=== PATIENT | male | born 1950 | race Caucasian/White ===

== ENCOUNTER → 2018-08-06 09:00 | Outpatient (CLI) | payer MEDICARE, OTHER, SELFPAY ==
[2018-08-06 09:57] LABS: Add Manual Diff / Slide Review NO; Basophils Percent Auto 0.8 % (0-2); Eosinophils Percent Auto 1.7 % (2-4); Hematocrit 44.7 % (41-53); Hemoglobin 15.3 g/dL (13.5-17.5); Lymphocytes Percent Auto 33.7 % (25-40); Mean Corpuscular HGB Conc 34.3 % (30-36); Mean Corpuscular Hemoglobin 30.7 PG (26-34); Mean Corpuscular Volume 89.6 fL (80-100); Monocytes Percent Auto 15.4 % (3-14); Neutrophils Absolute Auto 2600 /uL (3000-5900); Neutrophils Percent Auto 48.4 % (50-75); Platelet Count 155 X10^3/uL (150-400); Red Blood Cell Count 4.99 X10^6/uL (4.5-5.9); Red Cell Distribution Width 14.4 % (11.6-14.8); White Blood Cell Count 5.3 X10^3/uL (4.5-11.0)
[2018-08-06 10:14] LABS: Alanine Aminotransferase 50 IU/L (21-72); Albumin 4.3 g/dL (3.5-5.0); Alkaline Phosphatase 81 U/L (38-126); Aspartate Aminotransferase 26 IU/L (17-59); BUN Creatinine Ratio 23.8 (6-22); Bilirubin Total 0.6 mg/dL (0.2-1.3); Blood Urea Nitrogen 19 mg/dL (9-20); Calcium 9.1 mg/dL (8.4-10.2); Carbon Dioxide 27 mmol/L (22-32); Chloride 104 mmol/L (98-107); Estimated Glomerular Filt Rate > 60.0 mL/min (>60); Glucose 93 mg/dL (80-110); Potassium 4.5 mmol/L (3.4-5.1); Sodium 144 mmol/L (137-145); Total Protein 7.1 g/dL (6.3-8.2)
[2018-08-06 10:15] LABS: Albumin Globulin Ratio 1.5 (1.0-2.8); Cholesterol 133 mg/dL (140-199); Globulin 2.8 g/dL (1.7-4.1); HDL Cholesterol 46 mg/dL (40-60); HEMOLYSIS < 15 (0-50); LDL Cholesterol Calculated 62 mg/dL (<100); Triglycerides 126 mg/dL (35-150)
[2018-08-06 10:45] LABS: Prostate Specific Antigen Scrn 0.902 ng/mL (0.1-4.0); TSH w/ Reflex to FT4 1.18 uIU/mL (0.47-4.68)
== END ==
PROVIDERS: PCP Family Medicine; Visit Provider Family Medicine
DX: E78.2 Mixed hyperlipidemia (principal); I10 Essential (primary) hypertension; M10.9 Gout, unspecified
CPT/HCPCS: 36415; 80053; 80061; 84443; 85025; G0103

== ENCOUNTER → 2019-08-17 08:26 | Outpatient (CLI) | payer MEDICARE, OTHER, SELFPAY ==
[2019-08-17 09:28] LABS: Add Manual Diff / Slide Review NO; Basophils Absolute Auto 100 /uL (0-100); Basophils Percent Auto 0.9 % (0-2); Eosinophils Absolute Auto 100 /uL (0-450); Eosinophils Percent Auto 1.6 % (2-4); Hematocrit 47.4 % (41-53); Lymphocytes Absolute Auto 2200 /uL (1100-4500); Lymphocytes Percent Auto 34.6 % (25-40); Mean Corpuscular HGB Conc 33.8 % (30-36); Mean Corpuscular Hemoglobin 30.5 PG (26-34); Mean Corpuscular Volume 90.3 fL (80-100); Monocytes Absolute Auto 900 /uL (0-900); Monocytes Percent Auto 13.5 % (3-14); Neutrophils Absolute Auto 3200 /uL (1500-7000); Neutrophils Percent Auto 49.4 % (50-75); Platelet Count 171 X10^3/uL (150-400); Red Blood Cell Count 5.25 X10^6/uL (4.5-5.9); Red Cell Distribution Width 14.5 % (11.6-14.8); White Blood Cell Count 6.4 X10^3/uL (4.5-11.0)
[2019-08-17 09:36] LABS: Alanine Aminotransferase 32 IU/L (<50); Albumin 4.7 g/dL (3.5-5.0); Albumin Globulin Ratio 1.4 (1.0-2.8); Alkaline Phosphatase 75 U/L (38-126); Aspartate Aminotransferase 29 IU/L (17-59); BUN Creatinine Ratio 18.9 (6-22); Blood Urea Nitrogen 17 mg/dL (9-20); Calcium 9.7 mg/dL (8.4-10.2); Carbon Dioxide 29 mmol/L (22-32); Chloride 102 mmol/L (98-107); Cholesterol 151 mg/dL (140-199); Estimated Glomerular Filt Rate > 60.0 mL/min (>60); Globulin 3.4 g/dL (1.7-4.1); Glucose 100 mg/dL (80-110); HDL Cholesterol 44 mg/dL (40-60); HEMOLYSIS < 15 (0-50); LDL Cholesterol Calculated 74 mg/dL (<100); Potassium 4.8 mmol/L (3.4-5.1); Sodium 141 mmol/L (137-145); Total Protein 8.1 g/dL (6.3-8.2); Triglycerides 167 mg/dL (35-150)
[2019-08-17 10:38] LABS: TSH w/ Reflex to FT4 1.24 uIU/mL (0.47-4.68)
== END ==
PROVIDERS: PCP Family Medicine; Visit Provider Family Medicine
DX: E78.2 Mixed hyperlipidemia (principal); I10 Essential (primary) hypertension
CPT/HCPCS: 36415; 80053; 80061; 84443; 85025

== ENCOUNTER → 2020-07-19 07:55 | Outpatient (CLI) | payer MEDICARE, OTHER, SELFPAY ==
[2020-07-19 09:20] LABS: Add Manual Diff / Slide Review NO; Basophils Absolute Auto 100 /uL (0-100); Basophils Percent Auto 0.9 % (0-2); Eosinophils Absolute Auto 100 /uL (0-450); Eosinophils Percent Auto 1.8 % (2-4); Hematocrit 47.3 % (41-53); Hemoglobin 15.8 g/dL (13.5-17.5); Lymphocytes Absolute Auto 2100 /uL (1100-4500); Lymphocytes Percent Auto 32.6 % (25-40); Mean Corpuscular HGB Conc 33.5 % (30-36); Mean Corpuscular Hemoglobin 30.7 PG (26-34); Mean Corpuscular Volume 91.8 fL (80-100); Monocytes Absolute Auto 800 /uL (0-900); Monocytes Percent Auto 12.6 % (3-14); Neutrophils Absolute Auto 3400 /uL (1500-7000); Neutrophils Percent Auto 52.1 % (50-75); Platelet Count 158 X10^3/uL (150-400); Red Blood Cell Count 5.16 X10^6/uL (4.5-5.9); Red Cell Distribution Width 14.3 % (11.6-14.8); White Blood Cell Count 6.4 X10^3/uL (4.5-11.0)
[2020-07-19 10:04] LABS: Alanine Aminotransferase 43 IU/L (<50); Albumin 4.4 g/dL (3.5-5.0); Albumin Globulin Ratio 1.5 (1.0-2.8); Alkaline Phosphatase 92 U/L (38-126); Aspartate Aminotransferase 30 IU/L (17-59); BUN Creatinine Ratio 16.7 (6-22); Bilirubin Total 0.6 mg/dL (0.2-1.3); Blood Urea Nitrogen 14 mg/dL (9-20); Calcium 9.6 mg/dL (8.4-10.2); Carbon Dioxide 31 mmol/L (22-32); Chloride 103 mmol/L (98-107); Estimated Glomerular Filt Rate > 60.0 mL/min (>60); Glucose 98 mg/dL (80-110); HEMOLYSIS < 15 (0-50); Sodium 140 mmol/L (137-145); Total Protein 7.4 g/dL (6.3-8.2)
== END ==
PROVIDERS: PCP Family Medicine; Referring Provider Family Medicine; Visit Provider Family Medicine
DX: I10 Essential (primary) hypertension (principal); R42 Dizziness and giddiness; R61 Generalized hyperhidrosis
CPT/HCPCS: 36415; 80053; 84443; 85025

== ENCOUNTER → 2020-12-04 12:09 | Outpatient (CLI) | payer MEDICARE, OTHER, SELFPAY ==
--- NOTE | 2020-12-05 09:22 | P.PCN_ITS ---
Cardiac Stress Test Report Referral & Results Date Patient Seen: 12/05/20 Time Patient Seen: 09:00 Requesting provider: Ray Landeros Indication: Chest discomfort Rest ECG: Sinus rhythm with occasional PVCs Procedure Note: Today following both written and verbal informed consent the patient was exercised according to a standard Rosalio protocol patient went for a total of 6 minutes achieving a maximum heart rate of 136 maximum systolic blood pressure of 172. This is approximately 7.0 METs. Exercise was terminated at this point because of fatigue. Patient was also given Cardiolite through a previously started Hep-Lock IV by the nuclear cardiology technologist approximately 1 minute prior to the cessation of exercise. Normal hemodynamic response to exercise. Resting EKG had occasional PVCs, which increased in frequency with exercise. No other EKG changes. No signs or symptoms of angina. Mild exercise impairment (RICCO +10% on active scale). Impression: Low probability for ischemia. Perfusion imaging pending. Please note: Actual ECG tracings can be found in the PACS system.
--- NOTE | 2020-12-06 04:46 | DI.NM.S_ITS ---
DATE OF SERVICE: PROCEDURE: Exercise perfusion study. DATE OF STUDY: 12/04/2020 INDICATIONS: Chest pain with underlying hypertension and hyperlipidemia. RADIOPHARMACEUTICAL: 26.0 millicurie technetium-99m Myoview IV was injected at stress and 24.6 millicurie technetium-99m Myoview IV was injected at rest. CARDIAC STRESS: The patient underwent exercise perfusion study under the supervision of an attending staff. The patient walked on Rosalio protocol for 6 minutes and 01 seconds, achieved 92 percent of target heart rate with normal blood pressure response. Resting blood pressure 122/74 mmHg. Peak blood pressure 172/86 mmHg. He achieved 7 METs of workload and functional aerobic impairment positive 10%. No anginal symptoms. Baseline EKG revealed sinus rhythm with occasional PVCs. During exercise, no convincing ischemic changes seen. The patient continued to have some isolated PVCs without any ventricular tachycardia. The patient felt fatigued during exercise. RAW DATA: There is increased subdiaphragmatic activity. Patient's weight is 260 pounds. GATED STUDY: Resting LV ejection fraction 60 and stress LV ejection fraction 71%. Resting end-diastolic volume 131 mL without any obvious wall motion abnormalities. TID ratio 0.78, which is within normal limits. Lung/heart ratio 0.40 which is within normal limits. MYOCARDIAL PERFUSION SCAN: Stress supine, resting supine and stress prone images were compared to each other. There appears to be predominantly fixed, small size, mildly decreased perfusion of distal inferior wall, which is extending into the inferior apex. No reversible ischemia. CONCLUSION: I will call this study likely an abnormal myocardial perfusion study with possible small nontransmural myocardial infarction of the distal inferior wall and inferior apex. However, the patient's weight is 260 pounds. There was increased subdiaphragmatic activity. No obvious wall motion abnormalities and left ventricular function is preserved. There may be possibility of fixed tissue attenuation artifact causing this perfusion defect. In absence of reversible ischemia and preserved left ventricular function, overall appears to be low risk myocardial perfusion study. Clinical correlation is recommended. Venkat Soliz - DAYLIN/adriano/blanca doc#: [id number]/job#: [id number] dd: 12/05/2020 17:12:00 dt: 12/06/2020 04:31:00 DICTATING MD/COPIES TO: Víctor Ortez MD COPIES MNE: SALMA;
== END ==
PROVIDERS: PCP Family Medicine; Referring Provider Family Medicine; Visit Provider Family Medicine
DX: R94.39 Abnormal result of other cardiovascular function study (principal); R07.89 Other chest pain; I10 Essential (primary) hypertension; E78.5 Hyperlipidemia, unspecified

== ENCOUNTER → 2020-12-04 13:26 | Outpatient (CLI) | payer MEDICARE, OTHER, SELFPAY ==
[2020-12-04 15:05] LABS: COVID19 -Nasal RAPID Negative (Negative)
== END ==
PROVIDERS: PCP Family Medicine; Visit Provider Physician Assistant
DX: Z20.822 Contact with and (suspected) exposure to COVID-19 (principal); R07.89 Other chest pain; R94.39 Abnormal result of other cardiovascular function study; I10 Essential (primary) hypertension; E78.5 Hyperlipidemia, unspecified
CPT/HCPCS: 78452; 87635; 93016; 93017; 93018; C9803; A9502

== ENCOUNTER 2021-01-18 12:50 | Emergency (ER) | payer MEDICARE, OTHER, SELFPAY ==
[2021-01-18 13:18] VITALS: BP 155/74; PULSE 68; RESP 15; TEMP 36.7; O2SAT 97; BMI 37.3
--- NOTE | 2021-01-18 13:25 | DI.RAD.S_ITS ---
PROCEDURE: XR FOREARM LT 2V INDICATIONS: fall w/ left arm injury TECHNIQUE: 2 views of the forearm were acquired. COMPARISON: None. FINDINGS: Bones: Distal radial metaphyseal fracture is seen with impacted appearance and extension to the distal articular surface seen on the lateral view. There is slight radial displacement of the dominant distal fragment. Diffuse carpal osteoarthritis. Plate and screw fixation of the ulna and radius. Soft tissues: No suspicious soft tissue calcifications or masses. IMPRESSION: Distal intra-articular radial fracture as above. Dictated by: Ivan Stanley M.D. on 01/18/2021 at 14:00 Approved by: Ivan Stanley M.D. on 01/18/2021 at 14:02
--- NOTE | 2021-01-18 14:53 | PC.NURSE ---
pt has good radial pulse in his left arm . left arm is broken. removed wedding band and given to patient in a specimen cup.
[2021-01-18] MEDS: BACITRACIN OINT 0.9 GM PCKT 1 APPLIC TOP (15:21)
[2021-01-18 15:47] VITALS: BP 160/77; PULSE 76; O2SAT 94
--- NOTE | 2021-01-18 17:03 | ED_ITS ---
HPI - Fall General Chief Complaint: Fall Stated Complaint: fall, thinks left forearm is broken. Time Seen by Provider: 01/18/21 14:39 Source: patient Mode of arrival: Ambulatory Limitations: no limitations History of Present Illness HPI Narrative: 70-year-old male nonsmoker with history of GERD and gout presents with a chief complaint of accidental injury to his left wrist. He was working in his garden when he tripped and fell landing on his outstretched wrist. He denies any head neck or back pain. He denies any chest pain or shortness of breath. He denies any prodromal symptoms that may have led to his fall and states that it was purely a clumsy moment. He has full recall. Patient complains largely of pain at his distal radius which is worse with motion and improves with rest. He denies any numbness, tingling or weakness. He has no pain and elbow or shoulder. He has prior injury in his left forearm resulting from fractures while playing football in high school many years ago complaint: fall Onset (ago): minute(s) Fall from: standing Fall witnessed: no Place fall occurred: other Loss of consciousness: none Prolonged down time: no Symptoms prior to fall: none Context: tripped/slipped Location of injury - extremities: Left: forearm Severity: moderate Quality: sharp and aching Associated symptoms (after fall): denies Related Data Previous Rx's Medication Instructions Recorded omeprazole 20 mg PO QDAY #90 04/13/13 allopurinol 300 mg tablet 300 mg PO QDAY #90 tab 08/07/20 enalapril maleate 20 mg tablet 20 mg PO QDAY #90 tab 08/11/20 venlafaxine 150 mg 150 mg PO QDAY #90 tab 09/28/20 capsule,extended release 24 hr simvastatin 80 mg tablet 80 mg PO HS #90 tab 11/20/20 triazolam 0.25 mg tablet 0.25 mg PO HSP PRN #30 tab 11/22/20 hydrocodone-acetaminophen 1 tab PO Q4-6H PRN #10 tab 01/18/21 Allergies Allergy/AdvReac Type Severity Reaction Status Date / Time No Known Drug Allergies Allergy Verified 01/18/21 13:21 Review of Systems Constitutional Constitutional: Denies chills, Denies fatigue, Denies fever(s), Denies frequent falls, Denies lethargy and Denies weakness Eyes Eyes: Denies change in vision, Denies eye discharge, Denies irritation and Denies loss of vision ENT Ears, Nose, Mouth, and Throat: Denies change in voice, Denies dizziness, Denies neck pain, Denies sore throat and Denies throat swelling Cardiovascular Cardiovascular: Denies chest pain, Denies irregular heart rhythm, Denies lightheadedness, Denies palpitations, Denies dyspnea, Denies dyspnea on exertion and Denies orthopnea Respiratory Respiratory: Denies cough, Denies dyspnea, Denies dyspnea on exertion and Denies wheezing Gastrointestinal Gastrointestinal: Denies abdominal pain, Denies change in bowel habits, Denies diarrhea, Denies nausea and Denies vomiting Musculoskeletal Musculoskeletal: Reports arthralgias, Reports limited range of motion, Denies neck pain and Denies numbness Integumentary/Breasts Skin/Breast: Denies pruritus, Denies erythema, Denies rash and Denies wounds Neurologic Neurologic: Denies behavioral changes, Denies confusion, Denies dizziness, Denies frequent falls, Denies loss of vision, Denies numbness and Denies weakness Psychiatric Psychiatric: Denies anxiety, Denies behavioral changes, Denies confusion, Denies depression, Denies homicidal ideation and Denies suicidal ideation Endocrine Endocrine: Denies fatigue, Denies flushing and Denies palpitations Hematologic/Lymphatic Hematologic/Lymphatic: Denies easy bruising Allergic/Immunologic Allergic/Immunologic: Denies urticaria, Denies throat swelling and Denies wheezing Patient History Medical History Acid reflux Ankle pain (1963) Chicken pox (1954) Diaphoresis Gout (2001) Hyperlipidemia Hypertension Kidney stones (2011) Mumps (195) Obstructive sleep apnea of adult (2007) Snoring Surgical History Anesthesia History of colonoscopy (08/12/12) History of left heart catheterization (LHC) (02/08/14) History of right cataract surgery (08/08/17) History of surgery on arm (1966) Family History Father Cancer Colon cancer [place] (myocardial infarction) Mother Age: 97 Pacemaker Brother Lung cancer Brother Liver cancer Grandfather [place] (myocardial infarction) Grandmother No problems noted. Sister No problems noted. Social History marital status: household members: spouse occupational status: previously employed Smoking Status: Never smoker alcohol intake: current substance use type: does not use Smoking Status: Never smoker alcohol intake frequency: holidays/special occasions only Substance Use Type: does not use Exam Narrative Exam Narrative: GEN: AOx3 and in mild distress, GCS 15 EYES: Pupils are equal, round, and reactive to light and accommodation. Extraoccular muscles are intact bilaterally. There is no subconjunctival hemorrhage or exudate. CHEST: Lungs are clear to auscultation bilaterally and free of wheezes, rales, or rhonchi. Heart rate is regular rhythm, there are no murmurs, clicks, rubs, or gallops. There is no chest wall tenderness. ABD: Abdomen is soft and nontender. There is no guarding or rebound. Bowel sounds are normal in all 4 quadrants. There is no mass or organomegaly. EXT: Full but painful range of motion at the left wrist, no obvious deformity, most tender at distal radius, minimal swelling. Closed, isolated and neurovascularly intact SKIN: Warm, pink, and dry. No erythema or rash Initial Vital Signs Initial Vital Signs: Vital Signs Temperature 98.0 F 01/18/21 13:18 Pulse Rate 68 01/18/21 13:18 Respiratory Rate 15 01/18/21 13:18 Blood Pressure 155/74 H 01/18/21 13:18 Pulse Oximetry 97 01/18/21 13:18 Procedures Orthopedic Splinting/Casting Injury #1: Side: left Upper Extremity Injury Location: wrist Upper Extremity Immobilizer: sling/shoulder immobilizer and sugar tong splint Post splinting neuro exam: intact Post splinting vascular exam: intact Placed by: Nursing Course Orders Ordered: Discontinued Medications Bacitracin (Bacitracin Oint 0.9 Gm Pckt) 1 applic TOP NOW ONE Stop: 01/18/21 15:11 Last Admin: 01/18/21 15:21 Dose: 1 applic Documented by: [email or web address] Consultations Consultation #1: A spoken with on-call orthopedist, he has reviewed the case including images and agrees that attempt at procedural sedation with reduction is unlikely to improve alignment. Recommends splinting as is with sling and close follow-up (Dr. Hawley) Vital Signs Vital signs: Vital Signs - 8 hr 01/18/21 13:18 01/18/21 15:47 Temperature 98.0 F Pulse Rate 68 76 Respiratory Rate 15 Blood Pressure 155/74 H 160/77 H Pulse Oximetry 97 94 MDM - Fall Imaging Data Extremity x-ray #1: Radiologist's Impression: Venkat Soliz 70 M [address] [id number] ReportSigned Patient: Venkat Soliz HMR#: [id number]: 8Acct:[id number]/Sex: 70 / MDate of Service: 01/18/21Loc: EDAccession Number: [id number] Procedure: XR forearm LT 2V Ordering Provider: Sue Alvarenga D.O. PROCEDURE: XR FOREARM LT 2V INDICATIONS: fall w/ left arm injury TECHNIQUE: 2 views of the forearm were acquired. COMPARISON: None. FINDINGS: Bones: Distal radial metaphyseal fracture is seen with impacted appearance and extension to the distal articular surface seen on the lateral view. There is slight radial displacement of the dominant distal fragment. Diffuse carpal osteoarthritis. Plate and screw fixation of the ulna and radius. Soft tissues: No suspicious soft tissue calcifications or masses. IMPRESSION: Distal intra-articular radial fracture as above. Dictated by: Ivan Stanley M.D. on 01/18/2021 at 14:00 Discharge Plan Departure Patient Disposition: Home Clinical Impression: Distal radial fracture Qualifiers: Encounter type: initial encounter Fracture type: closed Fracture morphology: other fracture Laterality: left Qualified Code(s): S52.592A - Other fractures of lower end of left radius, initial encounter for closed fracture Instructions: DI for Distal Radius Fracture Activity Restrictions/Additional Instructions: *You have been diagnosed with [Fall with minimally displaced left distal radius fracture] *What to do: *Please continue to take your regular medications as directed. [x] New medication prescriptions sent to your pharmacy: [[facility]] [ ] New medication written as a paper prescription [ ] No new medications given *Please call Dr. Hawley at [facility] to schedule follow up. Call the office at the number listed below and let them know you were seen in the emergency department we asked that he be seen in follow-up Splint Care: Keep splint clean and dry. Elevated affected body part to decrease swelling. OK to use ice pack on the affected body part. Use for 15-20 minutes each time, for 5-6x per day. If you develop worsening pain, numbness, tingling, discoloration of the affected body part, loosen the splint by loosening the LAURA wrap, and either see your doctor for an urgent re-assessment, or return to the Emergency Department. Return to the Emergency Department for any new or worsening symptoms. Prescriptions: New hydrocodone-acetaminophen 5-325 mg tablet 1 tab PO Q4-6H PRN (Reason: pain) Qty: 10 RF: 0 No Action omeprazole 20 MG tablet,delayed release (DR/EC) 20 mg PO QDAY Qty: 90 RF: 1 allopurinol 300 mg tablet 300 mg PO QDAY Qty: 90 RF: 3 enalapril maleate 20 mg tablet 20 mg PO QDAY Qty: 90 RF: 1 venlafaxine [Effexor XR] 150 mg capsule,extended release 24hr 150 mg PO QDAY Qty: 90 RF: 3 simvastatin 80 mg tablet 80 mg PO HS Qty: 90 RF: 3 triazolam 0.25 mg tablet 0.25 mg PO HSP PRN (Reason: sleep) Qty: 30 RF: 2 Referrals: Ray Landeros MD [Primary Care Provider] - Janet Hawley MD [Physician] -
== END 2021-01-18 15:48 | disposition home or self-care (01) ==
PROVIDERS: Emergency Provider Emergency Medicine; PCP Family Medicine
DX: S52.592A Other fractures of lower end of left radius, initial encounter for closed fracture (principal); W19.XXXA Unspecified fall, initial encounter
CPT/HCPCS: 29105; 29125; 73090; 99283

== ENCOUNTER → 2021-12-03 08:44 | Outpatient (CLI) | payer MEDICARE, OTHER, SELFPAY ==
[2021-12-03 09:52] LABS: Add Manual Diff / Slide Review NO; Basophils Absolute Auto 100 /uL (0-100); Basophils Percent Auto 0.8 % (0-2); Eosinophils Absolute Auto 100 /uL (0-450); Eosinophils Percent Auto 1.6 % (2-4); Hematocrit 47.3 % (41-53); Hemoglobin 15.9 g/dL (13.5-17.5); Lymphocytes Absolute Auto 2100 /uL (1100-4500); Lymphocytes Percent Auto 29.5 % (25-40); Mean Corpuscular HGB Conc 33.6 % (30-36); Mean Corpuscular Hemoglobin 30.6 PG (26-34); Monocytes Absolute Auto 900 /uL (0-900); Monocytes Percent Auto 12.1 % (3-14); Neutrophils Absolute Auto 4100 /uL (1500-7000); Platelet Count 177 X10^3/uL (150-400); Red Cell Distribution Width 14.6 % (11.6-14.8); White Blood Cell Count 7.2 X10^3/uL (4.5-11.0)
[2021-12-03 10:19] LABS: Alanine Aminotransferase 34 IU/L (<50); Albumin 4.7 g/dL (3.5-5.0); Albumin Globulin Ratio 1.3 (1.0-2.8); Alkaline Phosphatase 84 U/L (38-126); Aspartate Aminotransferase 35 IU/L (17-59); BUN Creatinine Ratio 13.5 (6-22); Bilirubin Total 0.8 mg/dL (0.2-1.3); Blood Urea Nitrogen 14 mg/dL (9-20); Calcium 9.4 mg/dL (8.4-10.2); Carbon Dioxide 27 mmol/L (22-32); Chloride 104 mmol/L (98-107); Cholesterol 188 mg/dL (140-199); Estimated Glomerular Filt Rate > 60.0 mL/min (>60); Globulin 3.5 g/dL (1.7-4.1); Glucose 114 mg/dL (80-110); HDL Cholesterol 47 mg/dL (40-60); HEMOLYSIS < 15 (0-50); LDL Cholesterol Calculated 103 mg/dL (<100); Potassium 4.8 mmol/L (3.4-5.1); Sodium 140 mmol/L (137-145); Total Protein 8.2 g/dL (6.3-8.2); Triglycerides 188 mg/dL (35-150); Uric Acid 5.8 mg/dL (3.5-8.5)
[2021-12-03 10:41] LABS: Prostate Specific Antigen Scrn 1.18 ng/mL (0.1-4.0)
[2021-12-03 10:48] LABS: Thyroid Stimulating Hormone 0.927 uIU/mL (0.47-4.68)
[2021-12-03 13:14] LABS: Creatinine Urine Random 90.4 mg/dL
[2021-12-03 13:22] LABS: Microalbumi Creatinin Ratio Ur 61.9 ug/mg CR (<30); Microalbumin Urine Random 5.6 mg/dL (0-1.6)
== END ==
PROVIDERS: PCP Family Medicine; Referring Provider Physician Assistant; Visit Provider Physician Assistant
DX: I10 Essential (primary) hypertension (principal); Z12.5 Encounter for screening for malignant neoplasm of prostate; E78.2 Mixed hyperlipidemia; F34.1 Dysthymic disorder; M10.9 Gout, unspecified
CPT/HCPCS: 36415; 80053; 80061; 82043; 82570; 84443; 84550; 85025; G0103

== ENCOUNTER 2021-12-14 12:47 | Inpatient (IN) | payer MEDICARE, OTHER, SELFPAY ==
[2021-12-14] VITALS (15 sets, daily range): BP systolic 141–182; BP diastolic 72–90; PULSE 66–88; RESP 12–26; TEMP 36.2–36.5; O2SAT 92–99; BMI 38.2
--- NOTE | 2021-12-14 13:10 | DI.CT.S_ITS ---
PROCEDURE: CT ANGIO HEAD AND NECK INDICATIONS: right leg weakness TECHNIQUE: Noncontrast images were performed earlier in the day and not repeated. After the administration of intravenous contrast, 1 mm thick sections acquired from the aortic arch through the [place] of [place]. Post-contrast 4.5 mm thick sections then re-acquired from the foramen magnum to the vertex. 3-dimensional gzidcgh-vhaozyuvw-rqsrxsedvh (MIP) and/or volume rendering reformats were acquired of the central intracranial vasculature and neck separately. For radiation dose reduction, the following was used: automated exposure control, adjustment of mA and/or kV according to patient size. COMPARISON: [facility], CT, CT HEAD/BRAIN WO CON, 12/14/2021, 13:37. FINDINGS: Image quality: Excellent. BRAIN: CSF spaces: Ventricles are normal in size and shape. Basal cisterns are patent. No extra-axial fluid collections. Brain: No midline shift. No intracranial bleeds or masses. Ramirze-white matter interface appears intact. Skull and face: Calvarium and facial bones appear intact, without suspicious lesions. Orbits appear normal. Sinuses: Sinuses and mastoids are clear. HEAD CT ANGIOGRAPHY: Anterior circulation: Intracranial internal carotid arteries are normal in size and flow. The flow within the paired anterior cerebral arteries is normal and symmetric. The flow within the middle cerebral arteries is normal and symmetric. The anterior communicating artery is seen. No aneurysms are seen. Posterior circulation: Visualized portions of the vertebral arteries demonstrate normal caliber, and join to form a normal appearing basilar artery. Flow within the posterior cerebral arteries is normal and symmetric. No aneurysms are seen. NECK CT ANGIOGRAPHY: Carotid system: The great vessels demonstrate a conventional anatomy as they arise from the aortic arch. The origins of the common carotid arteries appear patent. The common carotid arteries demonstrate normal caliber and courses. The bifurcation regions demonstrate atherosclerotic irregularity and calcification, with approximately 50% narrowing seen involving the right proximal internal carotid artery. The more distal internal carotid arteries demonstrate normal course and caliber. Posterior circulation: The origins of the vertebral arteries each demonstrate approximately 50% narrowing, with focal calcification. The more superior extracranial portions of both vertebral arteries also demonstrate normal courses and calibers. Soft tissues: Visualized neck soft tissues demonstrate no suspicious abnormalities. Bones: No suspicious bony lesions. Visualized cervical spine appears normally aligned. Focal degenerative change is seen involving the C1-C2 interface anteriorly. Moderate disc space narrowing can be seen at C5-C6 and C6-C7. IMPRESSION: No significant intracranial arterial abnormality is seen. There is approximately 50% narrowing seen involving the origins of each vertebral artery. No significant carotid stenosis is seen. If there is strong clinical suspicion for an acute stroke, please consider a brain MRI for further evaluation, as it is more sensitive (assuming that there is no contraindication to MRI). Incidental note is made of: Cervical spine degenerative change Any quantitative measurements of stenosis were performed using NASCET criteria. Dictated by: Clyde Lopez M.D. on 12/14/2021 at 13:14 Approved by: Clyde Lopez M.D. on 12/14/2021 at 13:17
--- NOTE | 2021-12-14 13:10 | DI.CT.S_ITS ---
PROCEDURE: CT HEAD/BRAIN WO CON INDICATIONS: right leg weakness falling TECHNIQUE: Noncontrast 4.5 mm thick angled axial sections acquired from the foramen magnum to the vertex, with coronal and sagittal reformats. For radiation dose reduction, the following was used: automated exposure control, adjustment of mA and/or kV according to patient size. COMPARISON: None. FINDINGS: Image quality: Mild streak artifact can be seen through the skull base. CSF spaces: Basal cisterns are patent. No extra-axial fluid collections. The ventricles are symmetric in size and shape. Brain: No intracranial bleeds or masses. There is cerebral volume loss for age, with resultant ventricular and sulcal prominence. There are periventricular and deep white matter chronic small vessel ischemic changes. There is intracranial internal carotid artery atherosclerosis. Skull and face: Calvarium and visualized facial bones appear intact, without suspicious lesions. Sinuses: Visualized sinuses and mastoids are clear. IMPRESSION: No acute intracranial hemorrhage is seen. No acute intracranial process is seen. If there is strong clinical suspicion for an acute stroke, please consider a brain MRI for further evaluation, as it is more sensitive (assuming that there is no contraindication to MRI). Dictated by: Clyde Lopez M.D. on 12/14/2021 at 12:58 Approved by: Clyde Lopez M.D. on 12/14/2021 at 12:58
[2021-12-14 13:35] LABS: Add Manual Diff / Slide Review NO; Basophils Absolute Auto 0 /uL (0-100); Basophils Percent Auto 0.6 % (0-2); Eosinophils Absolute Auto 100 /uL (0-450); Eosinophils Percent Auto 1.5 % (2-4); Hematocrit 45.5 % (41-53); Hemoglobin 15.6 g/dL (13.5-17.5); Lymphocytes Absolute Auto 2300 /uL (1100-4500); Mean Corpuscular HGB Conc 34.2 % (30-36); Mean Corpuscular Hemoglobin 30.8 PG (26-34); Mean Corpuscular Volume 89.8 fL (80-100); Monocytes Absolute Auto 800 /uL (0-900); Monocytes Percent Auto 12.4 % (3-14); Neutrophils Absolute Auto 3300 /uL (1500-7000); Neutrophils Percent Auto 50.5 % (50-75); Platelet Count 157 X10^3/uL (150-400); Red Blood Cell Count 5.06 X10^6/uL (4.5-5.9); Red Cell Distribution Width 14.3 % (11.6-14.8); White Blood Cell Count 6.5 X10^3/uL (4.5-11.0)
--- NOTE | 2021-12-14 13:38 | ED_ITS ---
HPI - Neuro Symptoms/Deficit General Chief Complaint: Neuro Symptoms/Deficit Stated Complaint: right leg is funny, fell down, dragging toe Time Seen by Provider: 12/14/21 13:10 Source: patient Mode of arrival: Ambulatory History of Present Illness HPI Narrative: Patient is a 71-year-old male wh has a history of hyperlipidemia, hypertension, GERD, presents with right leg weakness. He states he was normal yesterday but when he woke up today he noticed that his right leg was not quite working. He seems to be dragging it. It definitely does not work like it did yesterday he is needing his 's cane. He has no chest pain no palpitations or shortness of breath. He has no other weakness numbness or tingling. He denies any visual changes. He is not taking any aspirin. On Anticoagulants: No Related Data Home Medications Medication Instructions Recorded Confirmed allopurinol 300 mg tablet 300 mg PO BEDTIME 12/14/21 12/14/21 enalapril maleate 20 mg tablet 20 mg PO BEDTIME 12/14/21 12/14/21 omeprazole 20 mg tablet,delayed 20 mg PO BEDTIME 12/14/21 12/14/21 release venlafaxine 150 mg 150 mg PO BEDTIME 12/14/21 12/14/21 capsule,extended release 24 hr (Effexor XR) Previous Rx's Medication Instructions Recorded simvastatin 80 mg tablet 80 mg PO HS #90 tab 11/20/20 triazolam 0.25 mg tablet 0.25 mg PO BEDTIME PRN #90 tab 10/18/21 Allergies Allergy/AdvReac Type Severity Reaction Status Date / Time No Known Drug Allergies Allergy Verified 12/14/21 13:05 Review of Systems Review of Systems Narrative: GENERAL: Denies chills, fatigue, malaise, fever, sweats, travel HEENT: Denies sinus pain, ear pain, sore throat, difficulty swallowing, neck pain RESPIRATORY: Denies dyspnea, cough, wheezing, hemoptysis, sputum. CARDIOVASCULAR: Denies chest pain, palpitations, orthopnea, edema GASTROINTESTINAL: Denies nausea, vomiting, abdominal pain, diarrhea, constipation, melena. : Denies dysuria, frequency, incontinence, hematuria, urinary retention, flank pain. MUSCULOSKELETAL: Denies weakness, joint pain, or bony pain SKIN: No rash, no erythema, no pruritus NEUROLOGIC: See HPI PSYCHIATRIC: No concerning psychosocial issues. 12 point review of systems is negative except for those stated above and HPI Hematologic/Lymphatic On Anticoagulants: No Patient History Medical History Acid reflux Ankle pain (1963) Chicken pox (1955) Depression Diaphoresis Gout (2001) Hyperlipidemia Hypertension Kidney stones (2011) Mumps (8) Obstructive sleep apnea of adult (2007) Snoring Surgical History Anesthesia History of colonoscopy (08/12/12) History of left heart catheterization (LHC) (02/08/14) History of right cataract surgery (08/08/17) History of surgery on arm (1966) Family History Father Cancer Colon cancer PA (myocardial infarction) Mother Age: 98 Pacemaker Brother Lung cancer Brother Liver cancer Grandfather [place] (myocardial infarction) Grandmother No problems noted. Sister No problems noted. Social History marital status: household members: spouse occupational status: previously employed Smoking Status: Never smoker alcohol intake: current substance use type: does not use Smoking Status: Never smoker alcohol intake frequency: holidays/special occasions only Substance Use Type: does not use Exam Initial Vital Signs Initial Vital Signs: Vital Signs Temperature 97.1 F L 12/14/21 13:02 Pulse Rate 88 12/14/21 13:02 Respiratory Rate 14 12/14/21 13:02 Blood Pressure 182/85 H 12/14/21 13:02 Pulse Oximetry 99 12/14/21 13:02 GENERAL: Alert pleasant 71-year-old male no acute distress HEENT: Head atraumatic,EOMI, pupils reactive, face symmetric, moist mucous membranes CARDIOVASCULAR: Regular rate and rhythm without murmurs, rubs or gallops. RESPIRATORY: Breath sounds equal bilaterally, no wheezes rales or rhonchi. ABDOMEN: Soft, nontender. Normoactive bowel sounds all 4 quadrants. No guarding or rebound. EXTREMITIES: Normal range of motion, no clubbing or edema. Neurovascularly intact NEUROLOGICAL: Alert and oriented x4.Normal gait and speech. Cranial nerves II through XII grossly intact. Good [id number], good kqnf-[id number], right leg drifts to ground difficulty with heel to wan with right leg no dysarthria or aphasia, sensation in tact to soft touch bilaterally, no visual changes, no facial droop SKIN: Warm, dry, no laceration, no petechiae, no rashes or lesions. Scores NIH Stroke Scale Level of Conciousness: Alert, keenly responsive Ask month/age: Answers both questions correctly. Open/close eyes, close hand: Performs both tasks correctly Best gaze horizontal: Normal Visual mehta: No visual loss Facial palsy: Normal symetrical movement Left arm drift: No drift for full 10 sec Right arm drift: No drift for full 10 sec Left leg drift: No drift for full 5 sec Right leg drift: Drifts down, not to bed Limb ataxia: Present in one limb Sensory on face/arms/legs: Normal, no sensory loss Best language: No aphasia, normal Dysarthria: Normal Extinction or inattention: No abnormality Total NIH Stroke scale score: 2 Course Orders Ordered: ED Orders 12/14/21 13:10 CT angio head and neck Stat CT head/brain wo con Stat EKG-12 Lead Stat 12/14/21 13:15 Complete Blood Count AUTO DIFF Stat Comprehensive Metabolic Panel Stat Partial Thromboplastin Time Stat Prothrombin Time INR Stat Troponin & CK Cardiac Panel Stat 12/14/21 14:04 COVID19 -Nasal RAPID/Pre-Proc Stat 12/14/21 14:22 MR head/brain wo con Stat 12/14/21 15:54 Consult to Discharge Planning Routine Consult to Occupational Therapy Evaluate & Treat Consult to Physical Therapy Evaluate & Treat Consult to Speech Therapy Evaluate & Treat Allopurinol (Allopurinol 300 Mg Tablet) 300 mg PO BEDTIME [facility] Aspirin (Aspirin Ec 81 Mg Tablet) 81 mg PO DAILY [facility] Atorvastatin Calcium (Atorvastatin 20 Mg Tablet) 40 mg PO BEDTIME [facility] Enalapril Maleate (Enalapril 20 Mg Tablet) 20 mg PO BEDTIME [facility] Enoxaparin Sodium (Enoxaparin 40 Mg/0.4 Ml Syringe) 40 mg SUBCUT DAILY [facility] Naloxone HCl (Naloxone 0.4 Mg/Ml Vial) 0.2 mg IV Q2MIN PRN PRN Reason: Opiate Reversal Pantoprazole Sodium (Pantoprazole Dr 20 Mg Tablet) 20 mg PO BEDTIME [facility] Venlafaxine HCl (Venlafaxine Er 75 Mg Cap) 150 mg PO BEDTIME [facility] Discontinued Medications Aspirin (Aspirin 81 Mg Chew Tab) 324 mg PO NOW ONE Stop: 12/14/21 14:31 Last Admin: 12/14/21 14:32 Dose: 324 mg Documented by: RICCI Vital Signs Vital signs: Vital Signs - 8 hr 12/14/21 13:02 12/14/21 13:14 12/14/21 13:30 Temperature 97.1 F L Pulse Rate 88 81 Respiratory Rate 14 23 Blood Pressure 182/85 H 142/90 H Pulse Oximetry 99 93 12/14/21 13:31 12/14/21 13:45 12/14/21 14:00 Temperature Pulse Rate 82 79 69 Respiratory Rate 26 H 16 15 Blood Pressure 141/72 H Pulse Oximetry 92 96 93 12/14/21 14:15 12/14/21 14:30 12/14/21 14:45 Temperature Pulse Rate 67 86 72 Respiratory Rate 20 20 Blood Pressure Pulse Oximetry 93 93 95 MDM - Neuro Symptoms/Deficit Lab Data Result diagrams: 12/14/21 13:15 12/14/21 13:15 Labs: Lab Results 12/14/21 12/14/21 12/14/21 Range/Units 13:15 13:15 13:15 WBC 6.5 (4.5-11.0) X10^3/uL RBC 5.06 (4.5-5.9) X10^6/uL Hgb 15.6 (13.5-17.5) g/dL Hct 45.5 (41-53) % MCV 89.8 (80-100) fL MCH 30.8 (26-34) PG MCHC 34.2 (30-36) % RDW 14.3 (11.6-14.8) % Plt Count 157 (150-400) X10^3/uL Neut % (Auto) 50.5 (50-75) % Lymph % (Auto) 35.0 (25-40) % Randolph % (Auto) 12.4 (3-14) % Eos % (Auto) 1.5 L (2-4) % Baso % (Auto) 0.6 (0-2) % Neut # (Auto) 3300 (4645-0137) /uL Lymph # (Auto) 2300 (1650-4828) /uL Randolph # (Auto) 800 (0-900) /uL Eos # (Auto) 100 (0-450) /uL Baso # (Auto) 0 (0-100) /uL PT 12.2 (10.1-12.7) SECONDS INR 1.1 (0.9-1.3) APTT 30 (26.4-36.2) SECONDS Sodium 140 (137-145) mmol/L Potassium 4.2 (3.4-5.1) mmol/L Chloride 105 (98-107) mmol/L Carbon Dioxide 25 (22-32) mmol/L BUN 16 (9-20) mg/dL Creatinine 0.83 (0.66-1.25) mg/dL Estimated GFR > 60.0 (>60) mL/min BUN/Creatinine Ratio 19.3 (6-22) Glucose 95 (80-110) mg/dL Calcium 8.9 (8.4-10.2) mg/dL Total Bilirubin 0.7 (0.2-1.3) mg/dL AST 30 (17-59) IU/L ALT 33 (<50) IU/L Alkaline Phosphatase 70 (38-126) U/L Total Creatine Kinase 81 (55-170) U/L CK-MB (CK-2) TNP CK-MB (CK-2) Rel Index TNP Troponin I < 0.012 (0.01-0.034) ng/mL Total Protein 8.1 (6.3-8.2) g/dL Albumin 4.7 (3.5-5.0) g/dL Globulin 3.4 (1.7-4.1) g/dL Albumin/Globulin Ratio 1.4 (1.0-2.8) SARS-CoV-2 (PCR) (Negative) 12/14/21 Range/Units 14:04 WBC (4.5-11.0) X10^3/uL RBC (4.5-5.9) X10^6/uL Hgb (13.5-17.5) g/dL Hct (41-53) % MCV (80-100) fL MCH (26-34) PG MCHC (30-36) % RDW (11.6-14.8) % Plt Count (150-400) X10^3/uL Neut % (Auto) (50-75) % Lymph % (Auto) (25-40) % Randolph % (Auto) (3-14) % Eos % (Auto) (2-4) % Baso % (Auto) (0-2) % Neut # (Auto) (6363-1903) /uL Lymph # (Auto) (2914-1947) /uL Randolph # (Auto) (0-900) /uL Eos # (Auto) (0-450) /uL Baso # (Auto) (0-100) /uL PT (10.1-12.7) SECONDS INR (0.9-1.3) APTT (26.4-36.2) SECONDS Sodium (137-145) mmol/L Potassium (3.4-5.1) mmol/L Chloride (98-107) mmol/L Carbon Dioxide (22-32) mmol/L BUN (9-20) mg/dL Creatinine (0.66-1.25) mg/dL Estimated GFR (>60) mL/min BUN/Creatinine Ratio (6-22) Glucose (80-110) mg/dL Calcium (8.4-10.2) mg/dL Total Bilirubin (0.2-1.3) mg/dL AST (17-59) IU/L ALT (<50) IU/L Alkaline Phosphatase (38-126) U/L Total Creatine Kinase (55-170) U/L CK-MB (CK-2) CK-MB (CK-2) Rel Index Troponin I (0.01-0.034) ng/mL Total Protein (6.3-8.2) g/dL Albumin (3.5-5.0) g/dL Globulin (1.7-4.1) g/dL Albumin/Globulin Ratio (1.0-2.8) SARS-CoV-2 (PCR) Negative (Negative) Imaging Data CT scan - head: Radiologist's Impression: PROCEDURE:? CT HEAD/BRAIN WO CON ? INDICATIONS:? right leg weakness falling ? TECHNIQUE:? Noncontrast 4.5 mm thick angled axial sections acquired from the foramen magnum to the vertex, with coronal and sagittal reformats.? For radiation dose reduction, the following was used:? automated exposure control, adjustment of mA and/or kV according to patient size.? ? COMPARISON:? None. ? FINDINGS:? Image quality:? Mild streak artifact can be seen through the skull base. ? CSF spaces:? Basal cisterns are patent.? No extra-axial fluid collections.? The ventricles are symmetric in size and shape.? ? Brain:? No intracranial bleeds or masses.? There is cerebral volume loss for age, with resultant ventricular and sulcal prominence.? There are periventricular and deep white matter chronic small vessel ischemic changes.? There is intracranial internal carotid artery atherosclerosis.? ? Skull and face:? Calvarium and visualized facial bones appear intact, without suspicious lesions.? ? Sinuses:? Visualized sinuses and mastoids are clear.? ? ? IMPRESSION:? No acute intracranial hemorrhage is seen.? ? No acute intracranial process is seen.? ? If there is strong clinical suspicion for an acute stroke, please consider a brain MRI for further evaluation, as it is more sensitive (assuming that there is no contraindication to MRI). ? ? Dictated by: Clyde Lopez M.D. on 12/14/2021 at 12:58 ? ? Approved by: Clyde Lopez M.D. on 12/14/2021 at 12:58 ? CTA - brain/neck: Radiologist's Impression: PROCEDURE:? CT ANGIO HEAD AND NECK ? INDICATIONS:? right leg weakness ? TECHNIQUE:? Noncontrast images were performed earlier in the day and not repeated.? ? After the administration of intravenous contrast, 1 mm thick sections acquired from the aortic arch through the [place] of [place].? Post-contrast 4.5 mm thick sections then re- acquired from the foramen magnum to the vertex.? 3-dimensional atxcvap-iuqrpqgqd-rzsqnxebnf (MIP) and/or volume rendering reformats were acquired of the central intracranial vasculature and neck separately. For radiation dose reduction, the following was used:? automated exposure control, adjustment of mA and/or kV according to patient size.? ? COMPARISON:? [facility], CT, CT HEAD/BRAIN WO CON, 12/14/2021, 13:37. ? FINDINGS:? Image quality:? Excellent.? ? BRAIN:? CSF spaces:? Ventricles are normal in size and shape.? Basal cisterns are patent.? No extra-axial fluid collections.? ? Brain:? No midline shift.? No intracranial bleeds or masses.? Ramirez-white matter interface appears intact.? ? Skull and face:? Calvarium and facial bones appear intact, without suspicious lesions.? Orbits appear normal.? ? Sinuses:? Sinuses and mastoids are clear.? ? HEAD CT ANGIOGRAPHY:? Anterior circulation:? Intracranial internal carotid arteries are normal in size and flow.? The flow within the paired anterior cerebral arteries is normal and symmetric.? The flow within the middle cerebral arteries is normal and symmetric.? The anterior communicating artery is seen.? No aneurysms are seen.? ? Posterior circulation:? Visualized portions of the vertebral arteries demonstrate normal caliber, and join to form a normal appearing basilar artery.? Flow within the posterior cerebral arteries is normal and symmetric.? No aneurysms are seen.? ? NECK CT ANGIOGRAPHY:? Carotid system:? The great vessels demonstrate a conventional anatomy as they arise from the aortic arch.? The origins of the common carotid arteries appear patent.? The common carotid arteries demonstrate normal caliber and courses.? The bifurcation regions demonstrate atherosclerotic irregularity and calcification, with approximately 50% narrowing seen involving the right proximal internal carotid artery. The more distal internal carotid arteries demonstrate normal course and caliber.? ? Posterior circulation:? The origins of the vertebral arteries each demonstrate approximately 50% narrowing, with focal calcification.? The more superior extracranial portions of both vertebral arteries also demonstrate normal courses and calibers.? ? Soft tissues:? Visualized neck soft tissues demonstrate no suspicious abnormalities.? ? Bones:? No suspicious bony lesions.? Visualized cervical spine appears normally aligned.? Focal degenerative change is seen involving the C1-C2 interface anteriorly.? Moderate disc space narrowing can be seen at C5-C6 and C6-C7. ? ? IMPRESSION:? No significant intracranial arterial abnormality is seen.? ? There is approximately 50% narrowing seen involving the origins of each vertebral artery. ? No significant carotid stenosis is seen. ? If there is strong clinical suspicion for an acute stroke, please consider a brain MRI for further evaluation, as it is more sensitive (assuming that there is no contraindication to MRI). ? ? ? Incidental note is made of: Cervical spine degenerative change ? ? Any quantitative measurements of stenosis were performed using NASCET criteria.? ? ? Dictated by: Clyde Lopez M.D. on 12/14/2021 at 13:14 ? ? MR stroke: Radiologist's Impression: [facility] [place] [id number] Magnetic Resonance Report Signed Patient: Venkat Soliz MR#: [id number] : 1950 Acct:[id number] Age/Sex: 71 / M Date of Service: 12/14/21 Loc: 90-1 Accession Number: [id number] ?? Procedure: MR head/brain wo con Ordering Provider: Sue Alvarenga D.O. PROCEDURE:? MR HEAD/BRAIN WO CON ? INDICATIONS:? right leg weakness ? TECHNIQUE:? Non-contrast axial T1 spin echo, axial T2 fast spin echo, sagittal and axial FLAIR, coronal T2 fast spin echo, axial gradient echo, axial diffusion and ADC through the brain.? ? COMPARISON:? [facility], CT, CT ANGIO HEAD AND NECK, 12/14/2021, 13:37. ? FINDINGS:? Image quality:? Excellent.? ? CSF spaces:? Ventricles appear symmetric in size and shape.? Basal cisterns are patent.? No extra-axial fluid collections.? ? Brain:? No intracranial bleeds or mass effects.? There is cerebral volume loss for age.? There are periventricular and deep white matter chronic small vessel ischemic changes.? Brainstem appears normal.? Diffusion-weighted images demonstrate a 15 mm focus of elevated signal intensity within the left posterior centrum semiovale, which demonstrates mild FLAIR signal elevation.? No chronic ischemic insults.? Normal intravascular flow voids are present.? ? Skull and face:? Calvarial bone marrow is normal in signal.? Orbits are normal.? ? Sinuses:? Sinuses and mastoids are clear.? ? IMPRESSION:? 1. Volume loss and small vessel ischemic disease. 2. Small early subacute infarct within the left posterior centrum semiovale. ? ? Dictated by: Pamela Pfeiffer M.D. on 12/14/2021 at 15:45 ? ? Approved by: Pamela Pfeiffer M.D. on 12/14/2021 at 15:46 ? ECG Data Interpretation: Normal sinus rhythm rate 69 SC interval 154 QRS [address] changes no T- wave inversions no priors to compare MDM Narrative Medical decision making narrative: Patient has signs symptoms are concerning for a stroke. He definitely has some right leg weakness with some mild ataxia. CT head and angio are both negative. He is out of the window for tPA. MRI confirms a subacute stroke. Patient is admitted to Dr. Quispe for further management. Discharge Plan Departure Patient Disposition: Admitted As Inpatient Clinical Impression: Cerebrovascular accident Admit Date/Time: 12/14/21 14:51 Admit Provider: Dilan Quispe
[2021-12-14 13:43] LABS: INR 1.1 (0.9-1.3); Prothrombin Time 12.2 SECONDS (10.1-12.7)
[2021-12-14 13:46] LABS: PTT Partial Thromboplastin Tim 30 SECONDS (26.4-36.2)
[2021-12-14 13:47] LABS: Alanine Aminotransferase 33 IU/L (<50); Albumin 4.7 g/dL (3.5-5.0); Albumin Globulin Ratio 1.4 (1.0-2.8); Alkaline Phosphatase 70 U/L (38-126); Aspartate Aminotransferase 30 IU/L (17-59); BUN Creatinine Ratio 19.3 (6-22); Bilirubin Total 0.7 mg/dL (0.2-1.3); Blood Urea Nitrogen 16 mg/dL (9-20); Calcium 8.9 mg/dL (8.4-10.2); Carbon Dioxide 25 mmol/L (22-32); Chloride 105 mmol/L (98-107); Creatine Kinase 81 U/L (55-170); Estimated Glomerular Filt Rate > 60.0 mL/min (>60); Globulin 3.4 g/dL (1.7-4.1); Glucose 95 mg/dL (80-110); HEMOLYSIS < 15 (0-50); Potassium 4.2 mmol/L (3.4-5.1); Sodium 140 mmol/L (137-145); Total Protein 8.1 g/dL (6.3-8.2)
[2021-12-14 13:58] LABS: Troponin I < 0.012 ng/mL (0.01-0.034)
--- NOTE | 2021-12-14 14:22 | DI.MRI.S_ITS ---
PROCEDURE: MR HEAD/BRAIN WO CON INDICATIONS: right leg weakness TECHNIQUE: Non-contrast axial T1 spin echo, axial T2 fast spin echo, sagittal and axial FLAIR, coronal T2 fast spin echo, axial gradient echo, axial diffusion and ADC through the brain. COMPARISON: [facility], CT, CT ANGIO HEAD AND NECK, 12/14/2021, 13:37. FINDINGS: Image quality: Excellent. CSF spaces: Ventricles appear symmetric in size and shape. Basal cisterns are patent. No extra-axial fluid collections. Brain: No intracranial bleeds or mass effects. There is cerebral volume loss for age. There are periventricular and deep white matter chronic small vessel ischemic changes. Brainstem appears normal. Diffusion-weighted images demonstrate a 15 mm focus of elevated signal intensity within the left posterior centrum semiovale, which demonstrates mild FLAIR signal elevation. No chronic ischemic insults. Normal intravascular flow voids are present. Skull and face: Calvarial bone marrow is normal in signal. Orbits are normal. Sinuses: Sinuses and mastoids are clear. IMPRESSION: 1. Volume loss and small vessel ischemic disease. 2. Small early subacute infarct within the left posterior centrum semiovale. Dictated by: Pamela Pfeiffer M.D. on 12/14/2021 at 15:45 Approved by: Pamela Pfeiffer M.D. on 12/14/2021 at 15:46
[2021-12-14 14:28] LABS: COVID19 -Nasal RAPID Negative (Negative)
[2021-12-14] MEDS: ASPIRIN 81 MG CHEW TAB 324 MG PO (14:32)
--- NOTE | 2021-12-14 14:54 | PM.HP.1 ---
History of Present Illness History of Present Illness Date Patient Seen: 12/14/21 Time Patient Seen: 14:54 Chief complaint: right leg is funny, fell down, dragging toe Narrative: 71-year-old male who normally sees Dr. Landeros, admitted via the emergency department for stroke versus TIA He woke this morning and noticed some weakness in his right leg. When he went to bed last evening he was completely normal. He also finds that the leg despite feeling weak kind of drags behind him. He has had a couple of minor fall sort of slow motion collapses with that leg. Finally since things are getting better came to the ER for evaluation Maybe some altered sensation in the foot itself. Not so sure about that. He is right-hand dominant and absolutely no symptoms in his right hand. Able to sign his name with his hospital paperwork etcetera without difficulty no sensory change in his arms or his other leg. No issues with his vision speech swallowing. No trouble with his face he feels like his smile is symmetric etcetera. No headache Does have a history of hypertension hyperlipidemia on medication Patient History Medical History Acid reflux Ankle pain (1963) Chicken pox (1954) Depression Diaphoresis Gout (2001) Hyperlipidemia Hypertension Kidney stones (2011) Mumps (1957) Obstructive sleep apnea of adult (2007) Snoring Surgical History Anesthesia History of colonoscopy (08/12/12) History of left heart catheterization (LHC) (02/08/14) History of right cataract surgery (08/08/17) History of surgery on arm (1966) Family & Social History Family History Father Cancer Colon cancer [place] (myocardial infarction) Mother Age: 98 Pacemaker Brother Lung cancer Brother Liver cancer Grandfather [place] (myocardial infarction) Grandmother No problems noted. Sister No problems noted. Social History: household members spouse Safety & Behavioral: Feels Safe in Current Yes Environment Been Physically Hurt or No Threatened By a Person Tobacco & Substance use: Smoking Status Never smoker alcohol intake current alcohol intake frequency holiday/special occasion Substance Use Type does not use Meds Home Medications and Allergies Home Medications Medication Instructions Recorded Confirmed Type simvastatin 80 mg tablet 80 mg PO HS #90 tab 11/20/20 12/14/21 Rx triazolam 0.25 mg tablet 0.25 mg PO BEDTIME PRN #90 tab 10/18/21 12/14/21 Rx allopurinol 300 mg tablet 300 mg PO BEDTIME 12/14/21 12/14/21 History enalapril maleate 20 mg tablet 20 mg PO BEDTIME 12/14/21 12/14/21 History omeprazole 20 mg tablet,delayed 20 mg PO BEDTIME 12/14/21 12/14/21 History release venlafaxine 150 mg 150 mg PO BEDTIME 12/14/21 12/14/21 History capsule,extended release 24 hr (Effexor XR) Allergies Allergy/AdvReac Type Severity Reaction Status Date / Time No Known Drug Allergies Allergy Verified 12/14/21 13:05 Review of Systems Review of Systems ROS: Yes All systems reviewed with the patient and are negative except as otherwise documented Exam Vital Signs (past 8 hours): - 12/14/21 13:02 12/14/21 13:14 12/14/21 13:30 Temperature 97.1 F L Pulse Rate 88 81 Respiratory Rate 14 23 Blood Pressure 182/85 H 142/90 H Pulse Oximetry 99 93 12/14/21 13:31 12/14/21 13:45 12/14/21 14:00 Temperature Pulse Rate 82 79 69 Respiratory Rate 26 H 16 15 Blood Pressure 141/72 H Pulse Oximetry 92 96 93 Oxygen Delivery Method Room Air Narrative Exam Narrative: Elderly male in no obvious distress lying on a gurney in emergency department HEENT-normocephalic atraumatic PERRLA EOMs intact Neck-no bruits no lymphadenopathy Lungs-clear with good breath sounds no wheezes no crackles Heart-regular rate and rhythm no murmur Abdomen-soft nontender nondistended no organomegaly Extremities-no cyanosis clubbing or edema Neuro-alert orient x3 no cranial nerve defects no focal findings gait not tested no obvious muscle strength loss with 5/5 upper and lower extremities as tested in bed Objective Labs Result Diagrams: 12/14/21 13:15 12/14/21 13:15 Labs: Laboratory Results - last 24 hr 12/14/21 12/14/21 12/14/21 13:15 13:15 13:15 WBC 6.5 RBC 5.06 Hgb 15.6 Hct 45.5 MCV 89.8 MCH 30.8 MCHC 34.2 RDW 14.3 Plt Count 157 Neut % (Auto) 50.5 Lymph % (Auto) 35.0 [place] % (Auto) 12.4 Eos % (Auto) 1.5 L Baso % (Auto) 0.6 Neut # (Auto) 3300 Lymph # (Auto) 2300 [place] # (Auto) 800 Eos # (Auto) 100 Baso # (Auto) 0 PT 12.2 INR 1.1 APTT 30 Sodium 140 Potassium 4.2 Chloride 105 Carbon Dioxide 25 BUN 16 Creatinine 0.83 Estimated GFR > 60.0 BUN/Creatinine Ratio 19.3 Glucose 95 Calcium 8.9 Total Bilirubin 0.7 AST 30 ALT 33 Alkaline Phosphatase 70 Total Creatine Kinase 81 CK-MB (CK-2) TNP CK-MB (CK-2) Rel Index TNP Troponin I < 0.012 Total Protein 8.1 Albumin 4.7 Globulin 3.4 Albumin/Globulin Ratio 1.4 SARS-CoV-2 (PCR) 12/14/21 14:04 WBC RBC Hgb Hct MCV MCH MCHC RDW Plt Count Neut % (Auto) Lymph % (Auto) [place] % (Auto) Eos % (Auto) Baso % (Auto) Neut # (Auto) Lymph # (Auto) [place] # (Auto) Eos # (Auto) Baso # (Auto) PT INR APTT Sodium Potassium Chloride Carbon Dioxide BUN Creatinine Estimated GFR BUN/Creatinine Ratio Glucose Calcium Total Bilirubin AST ALT Alkaline Phosphatase Total Creatine Kinase CK-MB (CK-2) CK-MB (CK-2) Rel Index Troponin I Total Protein Albumin Globulin Albumin/Globulin Ratio SARS-CoV-2 (PCR) Negative Assessment & Plan Assessment & Plan narrative: 1. Stroke versus TIA-patient's exam is actually normal at this time for me. However did not get him up in test his gait. He could have some weakness of that right leg that is undetectable with basic physical exam. He has had a negative workup so far including CT and CT angiography. MRI is scheduled. He has had no dysrhythmias thus far on telemetry. He is continue cardiac monitoring for rhythm disturbance and needs echocardiography. He has already been given aspirin in the emergency department I would initiate aspirin 81 mg daily for the indefinite future He needs evaluation with skilled therapies as well specifically physical therapy 2. Hypertension-continue current meds 3. Hyperlipidemia-continue current meds 4. VTE prophylaxis-Lovenox is ordered and appropriate 5. Code status-patient should be full code in the event of a sudden cardiac or respiratory arrest which is in no way shape or form anticipated at this time Time Spent With Patient Critical Care time: I spent a total of [] minutes of critical care time on this patient's care today; this time is exclusive of procedural time.
--- NOTE | 2021-12-14 15:54 | DI.ECHO.S_ITS ---
Version: 1 Study ID: [id number] [place] [address] Name: DA BARILLAS Study Date: 12/15/2021, 9: 41 AM : 1950 BP: 143 / 83 mmHg Gender: Male Height: 70 in Age: 71 Years Weight: 267 lb BSA: 2.36 mA? Ordering: INDRA VAUGHAN Referring: INDRA VAUGHAN Clinician: Rosa Andrew Reason For Study: CVA History: Summary Statements Normal sinus rhythm. Normal LV size, wall thickness, wall motion and LV systolic function. EF is 60-65%. Stage I diastolic dysfunction. Normal chamber sizes. No significant valvular abnormalities. No prior study available for comparison. No source of embolism found. Procedure: A two-dimensional transthoracic echocardiogram with color flow and Doppler was performed. The study quality was technically adequate. There is no prior echocardiogram noted for this patient. The patient was in sinus rhythm with heart rates between 78-87 bpm during the exam. Left Ventricle: The left ventricle is normal in size. There is borderline concentric left ventricular hypertrophy. The ejection fraction is estimated to be 60-65%. Right Ventricle: The right ventricle is normal in size and function. Atria: The left atrial size is normal. Right atrial size is normal. There is no Doppler evidence for an interatrial shunt. Mitral Valve: The mitral valve leaflets appear mildly thickened, but open well. There is trace mitral regurgitation. Aortic Valve: The aortic valve is trileaflet. The aortic valve opens well. There is no aortic valve stenosis. No aortic regurgitation is present. Tricuspid Valve: The tricuspid valve is normal in structure and function. There is a trace or physiologic amount of tricuspid regurgitation. Pulmonic Valve: The pulmonic valve leaflets are thin and pliable; valve motion is normal. There is mild pulmonic regurgitation. Great Vessels: The aortic root is normal size. The dimensions of the ascending aorta are normal. The IVC is of normal diameter and collapses greater than 50% with a sniff. This suggests a low right atrial pressure of 3 mm Hg. Pericardium/ Pleura: There is no pericardial effusion. There is no pleural effusion. 2D and M-Mode Measurements and Calculations LVIDd: 4.7 cm LVOT diam: 2.16 cm LVIDs: 3.4 cm Ao root diam: 3.7 cm IVSd: 1.14 cm asc Aorta Diam: 3.5 cm LVPWd: 1.04 cm Ao Arch Diam (Prox Trans): 3.3 cm LV light. diameter/BSA (cm/m^2): 1.99 LV sys. diameter/BSA (cm/m^2): 1.44 RVD1 (basal): 3.6 cm IVC diam: 1.23 cm RVD2 (mid): 3.1 cm TAPSE: 2.8 cm LA A4 area: 16.9 motorboat mechanic helper? RA area: 13.8 motorboat mechanic helper? LA A2 area: 20.6 motorboat mechanic helper? RA long axis: 5.1 cm LA length (vol): 5.1 cm RA vol: 31.9 ml LA vol: 58.5 ml RA : 13.5 ml/mA? LA vol index: 24.8 ml/mA? Doppler Measurements and Calculations Ao V2 max: 155.8 cm/sec LVOT Max [place]: 105.1 cm/sec Ao V2 mean: 111.3 cm/sec LV V1 max P.4 mmHg Ao V2 VTI: 30.9 cm LV V1 VTI: 22.8 cm Ao max P.7 mmHg Ao mean P.6 mmHg DEDE(I,D): 2.7 motorboat mechanic helper? DEDE(V,D): 2.47 motorboat mechanic helper? DEDE indexed to BSA (cm^2/m^2): 1.15 sev ratio: 0.74 MV E max wayne: 89.0 cm/sec MV dec time: 0.22 sec MV A max wayne: 118.3 cm/sec MV E/A: 0.75 Med Peak E' Wayne: 4.2 cm/sec Lat Peak E' Wayne: 5.5 cm/sec E/e' average: 18.6 PA V2 max: 112.8 cm/sec PA mean P.6 mmHg Electronically signed by: Anastasia Najera M.D. 12/16/2021, 12: 45 AM
--- NOTE | 2021-12-14 16:56 | PC.NURSE ---
Pt arrived from ED alert/oriented. Denies any discomfort. Luings clear, SpO2 98% RA SL right wrist intact/patent. Pt oriented to room & call system. Call light w/in reach, pt calls appropriately for needs. Continue w/plan of care.
[2021-12-14] MEDS: ATORVASTATIN 20 MG TABLET 40 MG PO (21:16)
[2021-12-14] MEDS: allopurinoL 300 MG TABLET PO (21:16)
[2021-12-14] MEDS: VENLAFAXINE ER 75 MG CAP 150 MG PO (21:16)
[2021-12-14] MEDS: ENALAPRIL 20 MG TABLET PO (21:16)
[2021-12-14] MEDS: PANTOPRAZOLE DR 20 MG TABLET PO (21:17)
[2021-12-15] VITALS (13 sets, daily range): BP systolic 110–147; BP diastolic 68–86; PULSE 62–84; RESP 15–21; TEMP 36.3–36.8; O2SAT 92–96
[2021-12-15] MEDS: ASPIRIN EC 81 MG TABLET PO (10:12)
[2021-12-15] MEDS: ENOXAPARIN 40 MG/0.4 ML SYRINGE SUBCUT (10:12)
--- NOTE | 2021-12-15 10:21 | PT.IIE ---
Surgical History (Last Reviewed 12/14/21 @ 14:56 by Dilan Quispe MD) Anesthesia History of left heart catheterization (LHC) (02/08/14) Medical History (Last Reviewed 12/14/21 @ 14:56 by Dilan Quispe MD) Acid reflux Ankle pain (1963) Chicken pox (1954) Depression Diaphoresis Gout (2001) Hyperlipidemia Hypertension Kidney stones (2011) Mumps (8) Obstructive sleep apnea of adult (2007) Snoring Physical Therapy Inpatient Evaluation/Re-Eval M1 PT/OT-IP Prior Functional Status Start: 12/15/21 12:30 Freq: NEEDED Status: Active Protocol: Document 12/15/21 10:21 AB (Rec: 12/15/21 12:56 AB [id number]) Medical Review Prior Functional Status Medical History Reviewed Yes Communication able to make needs known Mobility and Gait pt stated that he is independent with all mobilities and ambulation without AD Social History Household Members spouse Living Arrangements House Number of Floors (Floors) One Floor Number of Stairs To Enter/Railing? 3 steps L rail ascending to enter the house Home Environment High Toilet,Walk in Shower, Built-In Shower Seat Home Equipment Hand Held Shower,Grab Bars Near Toilet,Grab Bars In Shower Additional Social History Comment has a hurrycane pt stated that his spouse has early onset Alzheimer's and he is the caregiver for her. Has a caregiver that comes in to assist his spouse 2x/wk to assist her M2 PT-IP Current Condition Start: 12/15/21 12:30 Freq: NEEDED Status: Active Protocol: Document 12/15/21 10:21 AB (Rec: 12/15/21 12:56 AB [id number]) Physical Therapy Current Condition Current Condition Evaluation Date 12/15/21 Treatment Diagnosis L CVA; difficulty in walking Onset Date 12/14/21 M3 PT-IP Subjective Start: 12/15/21 12:30 Freq: NEEDED Status: Active Protocol: Document 12/15/21 10:21 AB (Rec: 12/15/21 12:56 AB [email or web address]) Subjective Physical Therapy Visit Type Type Initial Evaluation Visit Start Time 10:21 Visit Stop Time 11:56 Total Visit Minutes 95 Number of EVENT MARKETING COORDINATOR Visits 0 Physical Therapy Visit Comments Patient Comments agreeable to do PT Therapy Pain Assessment Pain Present Pain Present Denied Pain M4 PT-IP Mobility and Gait Start: 12/15/21 12:30 Freq: NEEDED Status: Active Protocol: Document 12/15/21 10:21 AB (Rec: 12/15/21 12:56 AB [id number]) PT-Transfer Assessment Sit to and From Stand Sit to and from Stand Contact Guard Assistance, Minimal Assistance,1 Person Assistance,Use of Upper Extremities Equipment Transfer Assistive Device None,Gait Belt,Front Wheeled Walker Orthotic/Prosthetic Devices or Brace: No Transfers Transfer Destination Chair Transfer Ability Level of Assist Minimal Assistance,Moderate Assistance,1 Person Assistance ,Use of Upper Extremities Comments Mobility Comments pt sitting on EOB and just finished OT. agreed to do PT. completed sit to stand from EOB min A and cues and ambulated ~ 6 ft without AD mod A and with ataxic gait with R knee buckling. positioned FWW for pt to use and ambulated that rest of the way to his chair using FWW min A. cued and assisted for R quads activationa dn RLE stability. pt sat on chair. educated on increase COG awareness, weight shifting and RLE muscle control. MMT tested prior to mobility and strength bennett, BLE are comparable but RLE has decrease coordination and priorioception with pt tending to overshoot or undershoot on target. educated pt on RLE stability when standing and ambulation. completed ambulation again using FWW and requires CGA to min A ~ 25 ft . continues to require constant cues for RLE stability. pt also gets distracted easily and noted increase unsteadiness and needs cues to refocus on task. informed pt regarding acute rehab recommendation but pt stated that he will go home due to his spouse. educated pt on pros and cons of going to acute rehab and concerns for pt going home. Informed pt that he will need assistance at home and if possible / and use of FWW. pt stated that he is going home today. pt has 3 steps to enter the house. agreed to do stair training. completed up/down step using L rail max A and max cues. R foot does not totally clear off the edge of the step and requires assist; (+) R knee buckling with descending to the step. educated pt on stair climbing again but with use of pt's hurrycane. pt ambulated ~ 30 ft using FWW min A and max cues. completed up/down platform step using L side rail and hurrycane min A and cues. pt completed x 3 reps. pt ambulated back to the room using FWW min A and cues and sat on the chair. positioned with call light and table within reach. Gait Assessment Gait Gait Assistance Required: Minimum Assistance,1 Person Assist Distance (Feet) 30 Able to Maintain Weight Bearing Status Yes During Gait Assistive Devices Assistive Device None,Gait Belt,Front Wheeled Walker Orthotic/Prosthetic Devices or Brace: No Gait Deviations General Gait Pattern Ataxic,Decreased Stride Length ,Decreased Feet Clearance Factors Limiting Gait Function Factors Limiting Gait Function Decreased Activity Tolerance, Decreased Sensation,Decreased Strength,Incoordination,Poor Balance,Poor Safety Awareness Stair Climbing Assessment Evaluation Level of Assist On Stairs Minimal Assistance,Maximal Assistance,1 Person Assistance Devices Stair Climbing Assistive Devices Tripod Cane/Hurry Cane,Left Railing Technique/Endurance Stair Climbing Direction Ascend and Descend Stair Climbing Technique Step to Step Number of Steps Climbed 1 Query Text: Stair Climbing Set # Repetitions (reps) 5 Comments Stair Climbing Comments pls refer to mobility section for details PT-Balance Assessment Sitting Balance and Reactions Static Sitting Balance Ability Good Dynamic Sitting Balance Ability Good Standing Balance and Reactions Static Standing Balance Ability Fair Dynamic Standing Balance Ability Poor Device Used without AD M5 PT-IP Objective Assessments Start: 12/15/21 12:30 Freq: NEEDED Status: Active Protocol: Document 12/15/21 10:21 AB (Rec: 12/15/21 12:56 AB [email or web address]) Orientation Orientation/Cognition Level of Alertness Alert Orientation Name,Place,Situation Language Function Ability No Deficits Noted Safety Awareness Decreased Safety Awareness Memory Description No Deficits Noted Gross Range of Motion Lower Extremity ROM Impairments R ankle decrease DF Strength Lower Extremity Strength Hip 4+/5 Knee 4+/5 Coordination Assessment Gross Coordination Gross Coordination Impaired Assessment Coordination Comments RLE lifting impairment with tendency to overshoot or undershoot target Sensation Assessment Sensation Gross Sensation Right LE Impaired Proprioception (Position) Impaired Muscle Tone Muscle Tone WNL Yes M6 PT-IP Treatment Start: 12/15/21 12:30 Freq: NEEDED Status: Active Protocol: Document 12/15/21 10:21 AB (Rec: 12/15/21 12:56 AB [id number]) Physical Therapy Treatment Education Education Provided Safety M7 PT-IP Assessment and Plan Start: 12/15/21 12:30 Freq: NEEDED Status: Active Protocol: Document 12/15/21 10:21 AB (Rec: 12/15/21 12:56 AB [id number]) PT Summary Assessment and Plan Potential Rehabilitation Potential Good Status of Condition at Evaluation Evolving Summary Impairments Pain,ROM,Strength,Balance, Coordination,Sensation,Tone, Cognition,Bed Mobility, Transfers,Gait,Activity Tolerance Assessment Summary pt requiring min to mod A using FWW but requires constant cues for safety and RLE steadiness with (+) R knee buckling and dragging. pt also is impulsive and easily gets distracted affecting safety awareness. Recommending acute rehab to improve overall strength, balance and functional independence. pt is refusing to go for rehab due to pt is the caregiver for his spouse but willing to go if he can find an assistance for his spouse. will continue PT to improve mobility. Goals Bed Mobility Goal Independent Transfer Goal Independent,Front Wheeled Walker Gait Goal Independent,Front Wheel Walker Gait Distance 200 Other Goals improve ambulation using hurrycane/without AD 250 ft Mod I up/down 3 steps L rail ascending + hurrycane mod I Days to Meet Goals 10 Frequency of Treatment Frequency Of Treatment Once a Day Treatment Plan Physical Therapy Treatment Plan Bed Mobility Training,Transfer Training,Gait Training, Therapeutic Exercise,Balance Retraining,Discharge Planning, Hot or Cold Pack,Neuromuscular Re-ed,Coordination Retraining ,Manual Therapy Precautions Other Precautions falls Recommendations To Nursing Amount of Assist Needed 1 Person Assist Discharge Recommendations PT Discharge Recommendations Home with 24/ Assist Available,Home Health,Acute Rehab,Home vs SNF,SNF vs Acute Rehab Equipment Needed for Home Before FWW Discharge Transportation Needs at Discharge Private Vehicle,Wheelchair/ Cabulance
--- NOTE | 2021-12-15 11:00 | OT.IP.EVAL ---
Past Medical History (Last Reviewed 12/14/21 @ 14:56 by Dilan Quispe MD) Acid reflux Ankle pain (1963) Chicken pox (1955) Depression Diaphoresis Gout (2001) History of colonoscopy (08/12/12) History of right cataract surgery (08/08/17) History of surgery on arm (1966) Hyperlipidemia Hypertension Kidney stones (2011) Mumps (1958) Obstructive sleep apnea of adult (2007) Snoring Surgical History (Last Reviewed 12/14/21 @ 14:56 by Dilan Quispe MD) Anesthesia History of colonoscopy (08/12/12) History of left heart catheterization (LHC) (02/08/14) History of right cataract surgery (08/08/17) History of surgery on arm (1966) Occupational Therapy Inpatient Evaluation/Re-Eval M1 PT/OT-IP Prior Functional Status Start: 12/15/21 12:30 Freq: NEEDED Status: Active Protocol: Document 12/15/21 12:42 [facility] (Rec: 12/15/21 13:17 [facility] [id number]) Medical Review Prior Functional Status Communication Independent Mobility and Gait Independent Activities of Daily Living and IADL's Independent with ADL's, IADL, and took care of his who has early onset Alzheimer's. Social History Household Members spouse Living Arrangements House Number of Floors (Floors) One Floor Number of Stairs To Enter/Railing? From the garage 2 steps with left rail going up. Home Environment High Toilet,Walk in Shower Home Equipment Front Wheel Walker,Straight Cane,Hand Held Shower,Grab Bars Near Toilet,Grab Bars In Shower Additional Social History Comment Pt has an adjustable bed at home. Pt is a retired teacher and principal. Pt has a hurry cane and upright FWW at home that his uses. M2 OT-IP Current Condition Start: 12/15/21 12:42 Freq: Status: Active Protocol: Document 12/15/21 12:42 [facility] (Rec: 12/15/21 13:17 [facility] [id number]) Occupational Therapy Current Condition Current Condition Evaluation Date 12/15/21 Treatment Diagnosis CVA, decreased mobility Diagnosis Onset Date 12/14/21 M3 OT- IP Subjective and Pain Start: 12/15/21 12:42 Freq: Status: Active Protocol: Document 12/15/21 12:42 [facility] (Rec: 12/15/21 13:17 [facility] [id number]) OT- Subjective Occupational Therapy Visit Type Type Initial Evaluation Visit Start Time 10:20 Visit Stop Time 11:00 Total Visit Minutes 40 Occupational Therapy Visit Comments Patient Comments Pt agreed to do OT eval. Pt wanting to go home to help take care of his who has early onset Alzheimer but realizes that he would benefit from acute rehab. Pt is open to going to acute rehab if able to set up care for his . Currently pt's sister if at home to assist but per pt rather have someone else to help his . Patient/Caregiver Goals To go home. OT Pain Assessment Pain When Pain Assessed At Rest Pain Present Pain Present Denied Pain M4 OT- IP ADL's Start: 12/15/21 12:42 Freq: Status: Active Protocol: Document 12/15/21 12:42 [facility] (Rec: 12/15/21 13:17 [facility] [id number]) OT [id number] Comments OT Self-Feeding Comments NOt at meal time. OT ADL-Grooming General Evaluation Areas Needing Assistance Retrieving/Set-up of Grooming Items OT ADL-Oral Care Comments Oral Care Comments Not performed. OT ADL-Dressing General Eval Lower Body Dressing Ability Minimal Assistance Comments OT Dressing Comments Pt having difficulty to don socks over his feet. Pt would also require assist for his balance while standing to be able to get clothing up over his hips. Pt able to do elastic no tie shoe laces for his shoes. OT ADL-Toileting Comments OT Toileting Comments Pt not having to go at this time. OT ADL-Bathing Comments OT Bathing Comments NOt performed. M5 OT- IP IADL's Start: 12/15/21 12:42 Freq: Status: Active Protocol: Document 12/15/21 12:42 [facility] (Rec: 12/15/21 13:17 [facility] [id number]) OT-Instrumental Activities of Daily Living Home Safety Awareness Awareness of Need for Assistance at Home Decreased Awareness Ability to Problem Solve Emergency Able to Problem Solve Situations Home Safety Comments Pt having difficulty with executive functioning problem solving and would be best to have someone assist for his medications and finance needs at this time. M6 OT- IP Functional Cognition Start: 12/15/21 12:42 Freq: Status: Active Protocol: Document 12/15/21 12:42 [facility] (Rec: 12/15/21 13:17 [facility] [id number]) Cognitive Factors Limiting Selfcare Function Cognitive Ability Level of Alertness Alert Patient Orientation Name,Age,Birthday,Month,Date, Year,Day of Week,Place, Situation Attention Span Ability Capable of Focused Attention, Capable of Sustained Attention Ability to Follow Commands Able to Follow One Step Commands Memory Description Short Term Impaired,Working Impaired Safety Awareness Underestimates Need for Assistance Problem Solving Ability Needs Assist to Identify Solutions Executive Function Ability Unable to Organize Plans, Unable to Remember Details Cognitive Tests SLUMS Pt scored 27/30 which implies normal for cognition however pt feels that he is not thinking well. Pt able to recall 4/5 objects after time passed and able to answer 3/4 questions right after paragraph read. On a few questions pt needing increased time to be sure that he answered the questions correctly. Cognitive Comments Cognitive Assessment Comments Pt scored 148 seconds on [place] Making Part B and also needing MOD vc to follow the directions. Pt states having difficulty to recall the alphabet in his head. Pt's score implies severe impairments for speed of processing, task switching, mental flexibility , executive functioning and visual attention and suggested and pt agreed not to drive at this time. Pt states able to see the numbers and letters, however he did not have his reading glasses with him here in the hospital. Pt is impulsive at times and tends to joke around when having difficulties during cognitive assessments. OT- Vision and Hearing OT- Hearing Assessment OT- Hearing Assessment WFL OT- Vision Assessment Visual Acuity Glasses All The Time Occular Pursuits WFL Visual [place] WFL M7 OT- IP Mobility and Balance Start: 12/15/21 12:42 Freq: Status: Active Protocol: Document 12/15/21 12:42 [facility] (Rec: 12/15/21 13:17 [facility] [id number]) OT-Transfer Assessment Sit to and From Stand Sit to and from Stand Contact Guard Assistance Transfers Transfer Ability Minimal Assistance,Moderate Assistance Technique Transfer Destination Bed Transfer Technique Stand Step Pivot Devices Transfer Assistive Devices Straight Cane,Front Wheeled Walker OT- Balance Assessment Sitting Balance and Reactions Static Sitting Balance Ability Good Dynamic Sitting Balance Ability Good Standing Balance and Reactions Static Standing Balance Ability Fair Dynamic Standing Balance Ability Poor Pt had several loss of balances when trying to walk with hurry cane and therapist had to hold onto him for his balance- MOD A , with FWW pt needing CGA to GWEN for balance as his RLE tends to buckle. Pt also having his shoes on and still noted poor balance especially with dynamic mobility needs at this time. M8 OT- IP Objective Assessments Start: 12/15/21 12:42 Freq: Status: Active Protocol: Document 12/15/21 12:42 [facility] (Rec: 12/15/21 13:17 [facility] [id number]) OT Gross Range of Motion Upper Extremity Range of Motion Assessment Within Functional Limits OT Strength Hand Ballistics Tester Strength Hand Dominance Right Comments Strength Comments RUE 4/5 to 4+/5 andn LUE 5/5 OT- Coordination Assessment Upper Extremity Finger to Nose Test Within Functional Limits Comments Coordination Comments Right hand 28 seconds at 25th percentile, and left hand 36 seconds. Pt states has history of multiple left arm fractures and per pt has trouble with coordination with left hand. OT-Muscle Tone Assessment Muscle Tone WNL Yes M9 OT- IP Assessment and Plan Start: 12/15/21 12:42 Freq: Status: Active Protocol: Document 12/15/21 12:42 [facility] (Rec: 12/15/21 13:17 [facility] [id number]) OT Summary Assessment and Plan Potential Rehabilitation Potential Excellent Analytic Complexity at Evaluation Moderate Summary OT Impairments Strength,Balance,Coordination, Functional Cognition, Functional Mobility,Grooming, Dressing,Toileting,Bathing, Toilet Transfers,Shower Transfers Progress Towards Goals Progressing Toward Goals,Slow Progress due to Cognition Assessment Summary Pt main barriers are steps, executive cognitive function, decreased balance, mobility, and is a high fall risk and would greatly benefit from acute rehab. Pt is very motivated and willing to get better. Pt is willing to go to skilled rehab if he is able to find help for his at home who has early onset Alzheimer's. Pt is a high fall risk at this time and had several loss of balances with OT with use of hurry cane and even with use of the FWW at this time and on level surfaces. Pt is not safe to go home at this time. Goals Self-Feeding Goal Independent Grooming Goal Independent Dressing Goal Independent Toileting Goal Independent Bathing Goal Independent Toilet Transfer Goal Independent Shower Transfer Goal Independent Days to Meet Goals 25 Frequency of Treatment Frequency Of Treatment Once a Day Treatment Plan OT Treatment Plan ADL Training,Functional Cognition Training,Functional Mobility,Patient/Family Education,Discharge Planning Other Treatment Recommendations and Next shower Treatment Focus Discharge Recommendations OT Discharge Recommendations Acute Rehab Transportation Needs at Discharge Private Vehicle,Wheelchair/ Cabulance
--- NOTE | 2021-12-15 11:00 | OT.IP.EVAL ---
Past Medical History (Last Reviewed 12/14/21 @ 14:56 by Dilan Quispe MD) Acid reflux Ankle pain (1963) Chicken pox (1955) Depression Diaphoresis Gout (2001) History of colonoscopy (08/12/12) History of right cataract surgery (08/08/17) History of surgery on arm (1966) Hyperlipidemia Hypertension Kidney stones (2011) Mumps (1958) Obstructive sleep apnea of adult (2007) Snoring Surgical History (Last Reviewed 12/14/21 @ 14:56 by Dilan Quispe MD) Anesthesia History of colonoscopy (08/12/12) History of left heart catheterization (LHC) (02/08/14) History of right cataract surgery (08/08/17) History of surgery on arm (1966) Occupational Therapy Inpatient Evaluation/Re-Eval M1 PT/OT-IP Prior Functional Status Start: 12/15/21 12:30 Freq: NEEDED Status: Active Protocol: Document 12/15/21 12:42 [facility] (Rec: 12/15/21 13:17 [facility] [id number]) Medical Review Prior Functional Status Communication Independent Mobility and Gait Independent Activities of Daily Living and IADL's Independent with ADL's, IADL, and took care of his who has early onset Alzheimer's. Social History Household Members spouse Living Arrangements House Number of Floors (Floors) One Floor Number of Stairs To Enter/Railing? From the garage 2 steps with left rail going up. Home Environment High Toilet,Walk in Shower Home Equipment Front Wheel Walker,Straight Cane,Hand Held Shower,Grab Bars Near Toilet,Grab Bars In Shower Additional Social History Comment Pt has an adjustable bed at home. Pt is a retired teacher and principal. Pt has a hurry cane and upright FWW at home that his has. M2 OT-IP Current Condition Start: 12/15/21 12:42 Freq: Status: Active Protocol: Document 12/15/21 12:42 [facility] (Rec: 12/15/21 13:17 [facility] [id number]) Occupational Therapy Current Condition Current Condition Evaluation Date 12/15/21 Treatment Diagnosis CVA, decreased mobility Diagnosis Onset Date 12/14/21 M3 OT- IP Subjective and Pain Start: 12/15/21 12:42 Freq: Status: Active Protocol: Document 12/15/21 12:42 [facility] (Rec: 12/15/21 13:17 [facility] [id number]) OT- Subjective Occupational Therapy Visit Type Type Initial Evaluation Visit Start Time 10:20 Visit Stop Time 11:00 Total Visit Minutes 40 Occupational Therapy Visit Comments Patient Comments Pt agreed to do OT eval. Pt wanting to go home to help take care of his who has early onset Alzheimers but realizes that he would benefit from acute rehab. Pt is open to going to acute rehab if able to set up care for his . Currently pt's sister if at home to assist but per pt rather have someone else to help his . Patient/Caregiver Goals To go home. OT Pain Assessment Pain When Pain Assessed At Rest Pain Present Pain Present Denied Pain M4 OT- IP ADL's Start: 12/15/21 12:42 Freq: Status: Active Protocol: Document 12/15/21 12:42 [facility] (Rec: 12/15/21 13:17 [facility] [id number]) OT BDP-Suta-Rucntcd Comments OT Self-Feeding Comments NOt at meal time. OT ADL-Grooming General Evaluation Areas Needing Assistance Retrieving/Set-up of Grooming Items OT ADL-Oral Care Comments Oral Care Comments Not performed. OT ADL-Dressing General Eval Lower Body Dressing Ability Minimal Assistance Comments OT Dressing Comments Pt having difficulty to usha socks over his feet. Pt would also require assist for his balance while standing to be able to get clothing up over his hips. Pt able to do elastic no tie shoe laces for his shoes. OT ADL-Toileting Comments OT Toileting Comments Pt not having to go at this time. OT ADL-Bathing Comments OT Bathing Comments NOt performed. M5 OT- IP IADL's Start: 12/15/21 12:42 Freq: Status: Active Protocol: Document 12/15/21 12:42 [facility] (Rec: 12/15/21 13:17 [facility] [id number]) OT-Instrumental Activities of Daily Living Home Safety Awareness Awareness of Need for Assistance at Home Decreased Awareness Ability to Problem Solve Emergency Able to Problem Solve Situations Home Safety Comments Pt having difficulty with executive functioning problem solving and would be best to have someone assist for his medications and finance needs at this time. M6 OT- IP Functional Cognition Start: 12/15/21 12:42 Freq: Status: Active Protocol: Document 12/15/21 12:42 [facility] (Rec: 12/15/21 13:17 [facility] [id number]) Cognitive Factors Limiting Selfcare Function Cognitive Ability Level of Alertness Alert Patient Orientation Name,Age,Birthday,Month,Date, Year,Day of Week,Place, Situation Attention Span Ability Capable of Focused Attention, Capable of Sustained Attention Ability to Follow Commands Able to Follow One Step Commands Memory Description Short Term Impaired,Working Impaired Safety Awareness Underestimates Need for Assistance Problem Solving Ability Needs Assist to Identify Solutions Executive Function Ability Unable to Organize Plans, Unable to Remember Details Cognitive Tests SLUMS Pt scored 27/30 which implies normal for cognition however pt feels that he is not thinking well. Pt able to recall 4/5 objects after time passed and able to answer 3/4 questions right after paragraph read. On a few questions pt needing increased time to be sure that he answer the questions correctly. Cognitive Comments Cognitive Assessment Comments Pt scored 148 seconds on [place] Making Part B and also needing MOD vc to follow the directions. Pt states having difficulty to recall the alphabet in his head. Pt's score implies severe impairments for speed of processing, task switching, mental flexibility , executive functioning and visual attention and suggested and pt agreed not to drive at this time. Pt states able to see the numbers and letters, however he did not have his reading glasses with him here in the hospital. Pt is impulsive at times and tends to joke around when having difficulties during cognitive assessments. OT- Vision and Hearing OT- Hearing Assessment OT- Hearing Assessment WFL OT- Vision Assessment Visual Acuity Glasses All The Time Occular Pursuits WFL Visual [place] WFL M7 OT- IP Mobility and Balance Start: 12/15/21 12:42 Freq: Status: Active Protocol: Document 12/15/21 12:42 [facility] (Rec: 12/15/21 13:17 [facility] [id number]) OT-Transfer Assessment Sit to and From Stand Sit to and from Stand Contact Guard Assistance Transfers Transfer Ability Minimal Assistance,Moderate Assistance Technique Transfer Destination Bed Transfer Technique Stand Step Pivot Devices Transfer Assistive Devices Straight Cane,Front Wheeled Walker OT- Balance Assessment Sitting Balance and Reactions Static Sitting Balance Ability Good Dynamic Sitting Balance Ability Good Standing Balance and Reactions Static Standing Balance Ability Fair Dynamic Standing Balance Ability Poor M8 OT- IP Objective Assessments Start: 12/15/21 12:42 Freq: Status: Active Protocol: Document 12/15/21 12:42 [facility] (Rec: 12/15/21 13:17 [facility] [id number]) OT Gross Range of Motion Upper Extremity Range of Motion Assessment Within Functional Limits OT Strength Hand Caddy Packer Strength Hand Dominance Right Comments Strength Comments RUE 4/5 to 4+/5 and LUE 5/5 OT- Coordination Assessment Upper Extremity Finger to Nose Test Within Functional Limits Comments Coordination Comments Right hand 28 seconds at 25th percentile, and left hand 36 seconds. Pt states has history of multiple left arm fractures and per pt has trouble with coordination with left hand prior. OT-Muscle Tone Assessment Muscle Tone WNL Yes M9 OT- IP Assessment and Plan Start: 12/15/21 12:42 Freq: Status: Active Protocol: Document 12/15/21 12:42 [facility] (Rec: 12/15/21 13:17 [facility] [id number]) OT Summary Assessment and Plan Potential Rehabilitation Potential Good/Excellent Analytic Complexity at Evaluation Moderate Summary OT Impairments Strength,Balance,Coordination, Functional Cognition, Functional Mobility,Grooming, Dressing,Toileting,Bathing, Toilet Transfers,Shower Transfers Progress Towards Goals Progressing Toward Goals,Slow Progress due to Cognition Assessment Summary Pt main barriers are steps, executive cognitive function, decreased balance, mobility, and is a high fall risk and would greatly benefit from acute rehab. Pt is very motivated and willing to get better. Pt is willing to go to skilled rehab if he is able to find help for his at home who has early onset Alzheimer's. Goals Self-Feeding Goal Independent Grooming Goal Independent Dressing Goal Independent Toileting Goal Independent Bathing Goal Independent Toilet Transfer Goal Independent Shower Transfer Goal Independent Days to Meet Goals 25 Frequency of Treatment Frequency Of Treatment Once a Day Treatment Plan OT Treatment Plan ADL Training,Functional Cognition Training,Functional Mobility,Patient/Family Education,Discharge Planning Other Treatment Recommendations and Next shower Treatment Focus Discharge Recommendations OT Discharge Recommendations Acute Rehab Transportation Needs at Discharge Private Vehicle,Wheelchair/ Cabulance
--- NOTE | 2021-12-15 12:19 | PC.NURSE ---
Addendum entered by Bettye Melo R.N. 12/15/21 16:14: in to see. Pt will stay another night due to right foot drag Will work more w/ PT/OT tomorrow, Pt has made arrangements for care for his . Tele shows NSR per ICU staff. Call light w/in reach, pt encouraged to call for assistance. Continue w/plan of care. Original Note: Pt A/O, denies discomfort. ECHO completed this morning; awaiting results. SL left wrist area intact/patent. Has been independent in room w/cane. Working w/ PT/OT pt right leg weak. Pt encouraged to call for assistance when having to ambulate. Call light w/in reach, pt calls appropriately for needs.
--- NOTE | 2021-12-15 13:36 | CM.DPC ---
DCP Cont: This DCP is assisting CANDIDO [place], in sending referrals out to inpatient rehab. Went ahead and faxed over 37 pages to [facility], and to [facility] in [place]. Included face sheets, H&P, P.T, and O.T. notes, speech is pending. Added medication sheets and vitals information. Called [facility] and left them a message about referral. Called [facility], and spoke to Gwendolyn in admissions for the week-end. She stated that they are working on an auth for another patient which would fill them up for the week-end, but may have an opening on Friday. She asked some questions regarding home discharge plan after inpatient rehab, as well as if there are stairs in the home. Encouraged her to read P.T. notes regarding this information. According to CARPET CLEANING TECHNICIAN, patient is independent at his baseline, and has caregivers for his spouse. P: DCP to continue to work on plan. [facility] was faxed, and message left, and [facility] will review, but most likely, no bed until Friday. Starr Seay, RN/User Interface Artist
--- NOTE | 2021-12-15 14:27 | CM.IDA ---
Initial DCP Assessment Note Pt is a 71 yo male, resident of [place], arrives from home, complaining that right leg is funny, fell down, dragging toe PCP: Ray Landeros Payer: [facility] Reviewed chart, met w/patient this morning at bedside to introduce role; patient had thought he had a TIA and was later informed by Dr Frazier that he had a CVA Patient lives at home w/his spouse, who has mild/early Alz Dementia. Patient is indp and active at baseline. Patient/spouse do not have children, patient has a sister that helps occasionally In addition, patient placed an add on teodora's lists for child care specialist assistance and secured a couple that both provide assist; states he trusts this couple to assist as needed. Unsure current hours, but this cg and family assisting spouse while patient admitted. Later learned from PT/OT that patient's balance is quite impaired, he is considered a fall risk, and he would benefit from Acute inpatient rehab. Patient agreeable however needing to discuss plans w/family in order to secure assist for his Requested that LEYDA Shea assist in starting these referrals and she kindly obliged. Awaiting review and CB now from Kelly Valles and CANDIDO Kelley Discharge Planning/Care Management CM Discharge Assessment Start: 12/15/21 14:22 Freq: Status: Active Protocol: Document 12/15/21 14:22 [facility] (Rec: 12/15/21 14:27 [facility] [id number]) Discharge Planning Assessment Assigned Anaesthetic Technician CANDIDO Bustamante DPOA/Assigned Designee Name Allie Soliz, spouse (w/ early Alz dementia) - Need sister's contact. Contact Information [phone] Advance Directives? No History Provided By Patient,Medical Record Prior Living Arrangements House Household Members spouse Type of transporation used prior to Drives own vehicle admit Independent with ADL's Yes Is patient alert and oriented? Yes Comment Acute Rehab is recommended Barriers to Discharge Yes Comment Impaired balance, processing difficulty (?) See therapy notes Transportation Arrangement TBD Additional Comment LEYDA Shea assisting; faxing referrals to Acute Rehabs Prov and ALONDRA
--- NOTE | 2021-12-15 15:56 | PM.PN.1 ---
Subjective Subjective Date Patient Seen: 12/15/21 Time Patient Seen: 09:00 Interval history: Doing fine overnight still having R foot drag but feeling otherwise ok. He is making arrangements for someone to watch his with Alzheimers. Exam Vital Signs (past 8 hours): - 12/15/21 08:00 12/15/21 09:13 12/15/21 11:00 Temperature 97.7 F Pulse Rate 77 Respiratory Rate 21 Blood Pressure 139/81 Pulse Oximetry 96 94 94 12/15/21 15:00 Temperature 97.9 F Pulse Rate 75 Respiratory Rate 20 Blood Pressure 137/83 Pulse Oximetry 94 Oxygen Delivery Method Room Air Oxygen Flow Rate 0 Narrative Exam Narrative: cheerful lola sitting in chair Const General: cooperative HENMT Head: normal to inspection, normocephalic and atraumatic Eyes General: appearance normal, both eyes and all related structures Neck Neck: normal visual inspection, full ROM and trachea midline Resp Effort & Inspection: normal respiratory effort Auscultation: clear to auscultation bilaterally Cardio Rate: regular rate Rhythm: regular rhythm Heart Sounds: S1 normal and S2 normal GI Other: soft nontender nondistended normal bowel sounds Skin General: no rashes or lesions noted Neuro General: patient alert, patient awake, patient oriented x3, moves all extremities and CN's II-XI intact bilaterally Extrem General: normal to inspection and full ROM Other: R foot drag Psych Appearance: grossly normal and well kempt Mental Status: mental status grossly normal Mood: congruent mood Affect: animated (nervous laughing) Objective Labs Result Diagrams: 12/14/21 13:15 12/14/21 13:15 [facility] Medical History Acid reflux Ankle pain (1963) Chicken pox (5) Depression Diaphoresis Gout (2001) Hyperlipidemia Hypertension Kidney stones (2011) Mumps (8) Obstructive sleep apnea of adult (2007) Snoring Surgical History Anesthesia History of colonoscopy (08/12/12) History of left heart catheterization (LHC) (02/08/14) History of right cataract surgery (08/08/17) History of surgery on arm (1966) Family History Father Cancer Colon cancer [place] (myocardial infarction) Mother Age: 98 Pacemaker Brother Lung cancer Brother Liver cancer Grandfather [place] (myocardial infarction) Grandmother No problems noted. Sister No problems noted. Social History marital status: household members: spouse occupational status: previously employed Smoking Status: Never smoker alcohol intake: current substance use type: does not use Assessment & Plan Assessment & Plan narrative: #CVA #early subacute infarct on MRI matching symptoms starting ASA 81 and statin. R foot is still clumsy he was made aware of persistent limitations while working with PT today they reckon he will need a fair amount of help they recommend acute rehab he is resistant due to caregiving for spouse I think home health PT may be an acceptable solution? status evolving per PT see how he does tomorrow. Echocardiogram performed, read still pending on monitor. #Hypertension stable continue current meds #Hyperlipidemia max dose statin Code: full DVT: Lovenox Diet: heart healthy Time Spent With Patient Critical Care time: I spent a total of [] minutes of critical care time on this patient's care today; this time is exclusive of procedural time. Quality VTE Deep Vein Thrombosis/Pulmonary Embolism Present on Admission: No
[2021-12-15] MEDS: PANTOPRAZOLE DR 20 MG TABLET PO (20:45)
[2021-12-15] MEDS: allopurinoL 300 MG TABLET PO (20:45)
[2021-12-15] MEDS: ENALAPRIL 20 MG TABLET PO (20:45)
[2021-12-15] MEDS: ATORVASTATIN 20 MG TABLET 80 MG PO (20:46)
[2021-12-15] MEDS: VENLAFAXINE ER 75 MG CAP 150 MG PO (20:47)
[2021-12-16 05:32] VITALS: BP 111/59; PULSE 68; RESP 16; TEMP 36.3; O2SAT 93
[2021-12-16 05:47] LABS: Hematocrit 46.5 % (41-53); Hemoglobin 15.8 g/dL (13.5-17.5); Mean Corpuscular HGB Conc 33.9 % (30-36); Mean Corpuscular Hemoglobin 30.7 PG (26-34); Mean Corpuscular Volume 90.4 fL (80-100); Platelet Count 150 X10^3/uL (150-400); Red Blood Cell Count 5.14 X10^6/uL (4.5-5.9); Red Cell Distribution Width 14.6 % (11.6-14.8); White Blood Cell Count 7.6 X10^3/uL (4.5-11.0)
[2021-12-16 06:12] LABS: BUN Creatinine Ratio 19.8 (6-22); Blood Urea Nitrogen 19 mg/dL (9-20); Calcium 9.2 mg/dL (8.4-10.2); Carbon Dioxide 29 mmol/L (22-32); Chloride 105 mmol/L (98-107); Estimated Glomerular Filt Rate > 60.0 mL/min (>60); Glucose 105 mg/dL (80-110); HEMOLYSIS < 15 (0-50); Potassium 4.7 mmol/L (3.4-5.1); Sodium 142 mmol/L (137-145)
[2021-12-16 07:00] VITALS: BP 139/71; PULSE 67; RESP 20; TEMP 36.4; O2SAT 94
[2021-12-16 07:54] LABS: Appearance Urine UA CLOUDY; Bilirubin Urine UA NEGATIVE (NEGATIVE); Color Urine UA YELLOW; Glucose Urine UA NEGATIVE (Negative); Ketones Urine UA TRACE (NEGATIVE); Leukocyte Esterase Urine UA 1+ (NEGATIVE); Nitrite Urine UA NEGATIVE (Negative); Occult Blood Urine UA NEGATIVE (Negative); Protein Urine UA 1+ (Negative); Specific Gravity Urine UA 1.015 (1.000-1.035); Urobilinogen Urine UA 0.2 E.U./dL (0.2)
[2021-12-16 07:58] LABS: Amorphous Sediment Urine 2+; Bacteria Urine Many (>30); Culture Indicated Urine Specimen Cultured; RBC Urine None Seen (0-5/HPF); Squamous Epithelial Cell Urine None Seen (0-5/HPF); WBC Urine 5-10/HPF (0-5/HPF)
[2021-12-16 08:00] VITALS: O2SAT 95
[2021-12-16 08:11] VITALS: O2SAT 94
[2021-12-16] MEDS: ENOXAPARIN 40 MG/0.4 ML SYRINGE SUBCUT (08:35)
[2021-12-16] MEDS: ASPIRIN EC 81 MG TABLET PO (08:35)
--- NOTE | 2021-12-16 10:34 | OT.IP.TRT ---
Occupational Therapy Treatment Note M2 OT-IP Current Condition Start: 12/15/21 12:42 Freq: Status: Active Protocol: Document 12/15/21 12:42 CCC (Rec: 12/15/21 13:17 CCC [id number]) Occupational Therapy Current Condition Current Condition Evaluation Date 12/15/21 Treatment Diagnosis CVA, decreased mobility Diagnosis Onset Date 12/14/21 M3 OT- IP Subjective and Pain Start: 12/15/21 12:42 Freq: Status: Active Protocol: Document 12/16/21 10:42 CGR (Rec: 12/16/21 10:50 CGR [id number]) OT- Subjective Occupational Therapy Visit Type Type Progress Note Visit Start Time 10:04 Visit Stop Time 10:34 Total Visit Minutes 30 OT Pain Assessment Pain When Pain Assessed At Rest Pain Present Pain Present Denied Pain M4 OT- IP ADL's Start: 12/15/21 12:42 Freq: Status: Active Protocol: Document 12/16/21 10:42 CGR (Rec: 12/16/21 10:50 CGR [id number]) OT [id number] Comments OT Self-Feeding Comments Not meal time OT ADL-Grooming General Evaluation Grooming Ability Independent Areas Needing Assistance Face Washing Comments OT Grooming Comments in shower OT ADL-Oral Care Comments Oral Care Comments not performed OT ADL-Dressing General Eval Upper Body Dressing Ability Standby Assistance Lower Body Dressing Ability Standby Assistance Areas Needing Assistance Socks Comments OT Dressing Comments socks and hospital gown OT ADL-Toileting Comments OT Toileting Comments not performed OT ADL-Bathing Bathing Type Bathing Type Shower General Evaluation Bathing Ability Standby Assistance Areas Needing Assistance Retrieving/Setting Up Items Comments OT Bathing Comments Pt performed shower in shower stall seated on BSC. Pt states understanding of safety with sitting vs standing in shower and pt agrees to use shower seat at home. M5 OT- IP IADL's Start: 12/15/21 12:42 Freq: Status: Active Protocol: Document 12/15/21 12:42 CCC (Rec: 12/15/21 13:17 [facility] [id number]) OT-Instrumental Activities of Daily Living Home Safety Awareness Awareness of Need for Assistance at Home Decreased Awareness Ability to Problem Solve Emergency Able to Problem Solve Situations Home Safety Comments Pt havign difficulty with executive functioning problemsolving and would be best to have somneone assist for his medications and finanace needs at this time. M6 OT- IP Functional Cognition Start: 12/15/21 12:42 Freq: Status: Active Protocol: Document 12/16/21 10:42 CGR (Rec: 12/16/21 10:50 CGR [id number]) Cognitive Factors Limiting Selfcare Function Cognitive Ability Level of Alertness Alert Patient Orientation Name,Age,Birthday,Month,Date, Year,Day of Week,Place, Situation Attention Span Ability Capable of Focused Attention, Capable of Sustained Attention M7 OT- IP Mobility and Balance Start: 12/15/21 12:42 Freq: Status: Active Protocol: Document 12/16/21 10:42 CGR (Rec: 12/16/21 10:50 CGR [id number]) OT- Bed Mobility Assessment Supine to Sit Supine to Sit Assist Standby Assistance Scooting Scooting to Edge of Bed Standby Assistance OT-Transfer Assessment Sit to and From Stand Sit to and from Stand Standby Assistance Transfers Transfer Ability Standby Assistance Technique Transfer Destination Bed,Bedside Commode,Chair, Shower Stall Transfer Technique Stand Step Pivot Devices Transfer Assistive Devices Gait Belt,Tripod Cane/Hurry Cane Comments Mobility Comments Pt initially wanting to ambulate without AD but used cane for most of session and states he does feel more stable with it. OT- Balance Assessment Sitting Balance and Reactions Static Sitting Balance Ability Normal Dynamic Sitting Balance Ability Good M8 OT- IP Objective Assessments Start: 12/15/21 12:42 Freq: Status: Active Protocol: Document 12/15/21 12:42 CCC (Rec: 12/15/21 13:17 CCC [id number]) OT Gross Range of Motion Upper Extremity Range of Motion Assessment Within Functional Limits OT Strength Hand Performance Specialist Strength Hand Dominance Right Comments Strength Comments RUE 4/5 to 4+/5 andn LUE 5/5 OT- Coordination Assessment Upper Extremity Finger to Nose Test Within Functional Limits Comments Coordination Comments Right hand 28 seconds at 25th percentile, and left hand 36 seconds. Pt states has history of multiple left arm fractures and per pt has trouble with coordination with left hand. OT-Muscle Tone Assessment Muscle Tone WNL Yes M9 OT- IP Assessment and Plan Start: 12/15/21 12:42 Freq: Status: Active Protocol: Document 12/16/21 10:42 CGR (Rec: 12/16/21 10:50 CGR [id number]) OT Summary Assessment and Plan Potential Rehabilitation Potential Excellent Analytic Complexity at Evaluation Moderate Summary OT Impairments Strength,Balance,Coordination, Functional Cognition, Functional Mobility,Grooming, Dressing,Toileting,Bathing, Toilet Transfers,Shower Transfers Progress Towards Goals Progressing Toward Goals,Slow Progress due to Cognition Assessment Summary Pt is requesting to go home at this time. Pt states he understands that he has some deficits but that he needs to be home to care for his . Pt would benefit from acute rehab for high level cog and mobility but could also go home with out patient therapy (if transportation is available) if pt continues to prefer a discharge home. Goals Self-Feeding Goal Independent Grooming Goal Independent Dressing Goal Independent Toileting Goal Independent Bathing Goal Independent Toilet Transfer Goal Independent Shower Transfer Goal Independent Days to Meet Goals 25 Frequency of Treatment Frequency Of Treatment Once a Day Treatment Plan OT Treatment Plan ADL Training,Functional Cognition Training,Functional Mobility,Patient/Family Education,Discharge Planning Other Treatment Recommendations and Next shower Treatment Focus Discharge Recommendations OT Discharge Recommendations Home,Acute Rehab,Outpatient PT Other Discharge Recommendations home with outpatient therapy vs acute Transportation Needs at Discharge Private Vehicle
[2021-12-16 11:00] VITALS: BP 123/74; PULSE 90; RESP 21; TEMP 36.3; O2SAT 93
--- NOTE | 2021-12-16 11:02 | PC.NURSE ---
Assumed care of pt at 0700. Pt sitting up in bed during hand-off report. Denies numbness to face, arm, or leg. Denies visual deficits. Left leg noted to drag during ambulation. See Michela and Dipti araujo for details. While pt was working with Dipti this adjusto writer operator received call of TELETYPIST stating HR in 140's on telemetry. This adjusto writer operator assessed pt, pt denies chest discomfort, denies palpitations, denies dizziness. Apical and radial pulse assessed. HR 76 with occasional pauses and acceleration of beat. Will continue to monitor, Pt verbalized to notify staff of any symptoms.
--- NOTE | 2021-12-16 12:18 | PM.DS.1 ---
History of Present Illness History of Present Illness Date Patient Seen: 12/16/21 Time Patient Seen: 11:00 Chief complaint: right leg is funny, fell down, dragging toe Narrative: Pt feels ok this morning still off kilter walking around but feels like he is ok to go home eager to contoninue are for at home feels safe for discharge will work with PT at home. Reviewed new UTI will tx on his way out. Discharge Providers Provider Date of admission: 12/14/21 14:51 Discharge Date: 12/16/21 Primary care physician: Ray Landeros MD Consults: 12/14/21 15:54 Consult to Discharge Planning Routine Comment: Consult to Occupational Therapy Evaluate & Treat Comment: Physician Instructions: Evaluate and treat Consult to Physical Therapy Evaluate & Treat Comment: Physician Instructions: Evaluate and Treat Consult to Speech Therapy Evaluate & Treat Comment: Physician Instructions: Evaluate and treat Discharge provider: Rhett Frazier MD Summary Hospital Course Discharge Diagnosis: CVA R foot drag UTI Hospital Course: Mr. Soliz was admitted with lateralizing RLE motor symptoms which correlated with subacute infarct finding on MRI. He worked with PT on his gait which is his primary issue. He has a safe discharge plan at home with flat floorplan walk in shower. Further workup negative for etiology. PT set up to work with him after discharge. Status at Discharge Cognitive/behavioral status at discharge: oriented and at baseline, oriented Functional status at discharge: uses cane/walker Overall status at discharge: patient is not back to baseline Exam Vital Signs (past 8 hours): - 12/16/21 05:32 12/16/21 07:00 12/16/21 08:00 Temperature 97.4 F L 97.5 F L Pulse Rate 68 67 Respiratory Rate 16 20 Blood Pressure 111/59 L 139/71 Pulse Oximetry 93 94 95 12/16/21 08:11 12/16/21 11:00 Temperature 97.3 F L Pulse Rate 90 Respiratory Rate 21 Blood Pressure 123/74 Pulse Oximetry 94 93 Oxygen Delivery Method Room Air Oxygen Flow Rate 0 Narrative Exam Narrative: sitting in mora in street clothes Const General: cooperative, healthy appearing, comfortable, well developed and well groomed [facility] Head: normal to inspection, normocephalic and atraumatic Eyes General: appearance normal, both eyes and all related structures Resp Auscultation: clear to auscultation bilaterally Cardio Rate: regular rate Rhythm: regular rhythm Heart Sounds: S1 normal and S2 normal GI Inspection: normal to inspection Auscultation: normal bowel sounds Skin General: no rashes or lesions noted Neuro General: patient alert, patient awake, patient oriented x3 and CN's II-XI intact bilaterally Other: slow R LE on gait using cane is stable but clumsy on that side normal sensation Extrem General: normal to inspection Psych Appearance: grossly normal and well kempt Mental Status: mental status grossly normal Speech and Movement: speech clear Mood: congruent mood Affect: normal affect Thought Process: normal Objective Labs Result Diagrams: 12/16/21 05:20 12/16/21 05:20 Labs: Laboratory Results - last 24 hr 12/16/21 12/16/21 12/16/21 05:20 05:20 06:56 WBC 7.6 RBC 5.14 Hgb 15.8 Hct 46.5 MCV 90.4 MCH 30.7 MCHC 33.9 RDW 14.6 Plt Count 150 Sodium 142 Potassium 4.7 Chloride 105 Carbon Dioxide 29 BUN 19 Creatinine 0.96 Estimated GFR > 60.0 BUN/Creatinine Ratio 19.8 Glucose 105 Calcium 9.2 Urine Color Yellow Urine Appearance Cloudy Urine pH 7.0 Ur Specific [place] 1.015 Urine Protein 1+ H Urine Glucose (UA) Negative Urine Ketones Trace H Urine Occult Blood Negative Urine Nitrate Negative Urine Bilirubin Negative Urine Urobilinogen 0.2 Ur Leukocyte Esterase 1+ H Urine RBC None seen Urine WBC 5-10/hpf H Ur Squamous Epith Cells None seen Amorphous Sediment 2+ Urine Bacteria Many (>30) H Ur Culture Indicated? Specimen cultured [facility] Medical History Acid reflux Ankle pain (1963) Chicken pox (5) Depression Diaphoresis Gout (2001) Hyperlipidemia Hypertension Kidney stones (2011) Mumps (8) Obstructive sleep apnea of adult (2007) Snoring Surgical History Anesthesia History of colonoscopy (08/12/12) History of left heart catheterization (LHC) (02/08/14) History of right cataract surgery (08/08/17) History of surgery on arm (1966) Family History Father Cancer Colon cancer [place] (myocardial infarction) Mother Age: 98 Pacemaker Brother Lung cancer Brother Liver cancer Grandfather [place] (myocardial infarction) Grandmother No problems noted. Sister No problems noted. Social History marital status: household members: spouse occupational status: previously employed Smoking Status: Never smoker alcohol intake: current substance use type: does not use Discharge Assessment & Plan Assessment and Plan Assessment: #CVA- subacute infarct on MRI with persistent R foot drag stable - discharge on ASA 81 and statin avoid butter.? R foot is still clumsy PT recommends acute rehab he is resistant due to caregiving for spouse will settle for PT using cane feelign ok getting around if he thinks about it Echocardiogram generally wnl with mild diastolic dysfunction Note that there was one episode where his cafeteria monitor alarmed for elevated HR while he was just sitting resting. HR was normal on exam. Not sure what that is but may represent paroxysmal afib? Consider ZIO patch d/w PCP at f/u. #UTI per micro UA etiology unclear but may have some increased frequency will tx with one dose rocephin f/u prn #Hypertension stable continue current meds #Hyperlipidemia max dose statin Code: full PCP: Leti DVT: Lovenox Diet: heart healthy Discharge Plan Discharge Plan Patient Disposition: Home Health Service Discharge orders & Medications Prescriptions: New atorvastatin [Lipitor] 20 mg Tablet 80 mg PO BEDTIME Qty: 30 0RF aspirin 81 mg Tablet,Delayed Release (Dr/Ec) 81 mg PO DAILY Qty: 30 0RF Continued triazolam 0.25 mg tablet 0.25 mg PO BEDTIME PRN (Reason: sleep) Qty: 90 1RF enalapril maleate 20 mg tablet 20 mg PO BEDTIME 0RF venlafaxine [Effexor XR] 150 mg capsule,extended release 24hr 150 mg PO BEDTIME 0RF allopurinol 300 mg tablet 300 mg PO BEDTIME 0RF omeprazole 20 MG tablet,delayed release (DR/EC) 20 mg PO BEDTIME 0RF Discontinued simvastatin 80 mg tablet 80 mg PO HS Qty: 90 3RF Follow up/Referrals: Ray Landeros MD [Primary Care Provider] - Diet/Activity/Treatments Diet: Low-cholesterol Visit Report/Discharge Packet Instructions: Urinary Tract Infection, DI for Stroke-Ischemic Discharge Data Primary Care Provider: Ray Landeros VTE Deep Vein Thrombosis/Pulmonary Embolism Present on Admission: No
--- NOTE | 2021-12-16 13:00 | PT.IPTN ---
Physical Therapy Treatment Note M2 PT-IP Current Condition Start: 12/15/21 12:30 Freq: NEEDED Status: Active Protocol: Document 12/15/21 10:21 AB (Rec: 12/15/21 12:56 AB [id number]) Physical Therapy Current Condition Current Condition Evaluation Date 12/15/21 Treatment Diagnosis L CVA; difficulty in walking Onset Date 12/14/21 M3 PT-IP Subjective Start: 12/15/21 12:30 Freq: NEEDED Status: Active Protocol: Document 12/16/21 13:00 AW (Rec: 12/16/21 13:58 AW [id number]) Subjective Physical Therapy Visit Type Type Treatment Note Visit Start Time 12:36 Visit Stop Time 13:00 Total Visit Minutes 24 Number of FORESTRY WORKERS Visits 0 Physical Therapy Visit Comments Patient Comments agreeable to do PT Patient Goals Pt hopes to return home today. Therapy Pain Assessment Pain When Pain Assessed During Mobility Pain Present Pain Present Denied Pain M4 PT-IP Mobility and Gait Start: 12/15/21 12:30 Freq: NEEDED Status: Active Protocol: Document 12/16/21 13:00 AW (Rec: 12/16/21 13:58 AW [id number]) PT-Bed Mobility Assessment Supine to Sit Supine to Sit Standby Assistance Scooting Scooting to Edge of Bed Standby Assistance PT-Transfer Assessment Sit to and From Stand Sit to and from Stand Standby Assistance,Use of Upper Extremities Equipment Transfer Assistive Device Gait Belt,Tripod Cane/Hurry Cane Transfers Transfer Destination Chair Transfer Technique Stand Step Pivot Transfer Ability Level of Assist Standby Assistance,1 Person Assistance,Use of Upper Extremities Comments Mobility Comments Pt was sitting up in bed as PT arrived. BP 141/81 HR 93. With HOB flattened, pt sat up on left side of bed SBA and stood SBA. He used tripod cane to ambulate 600 feet in the halls SBA>occasional CGA. See gait comments. On return to the room, pt participated in standing balance and coordination activities before sitting on the chair SBA. BP after activity was 157/75 HR 93. Gait Assessment Gait Gait Assistance Required: Standby Assistance,Contact Guard Assist Distance (Feet) 600 Assistive Devices Assistive Device Gait Belt,Tripod Cane/Hurry Cane Gait Deviations General Gait Pattern Ataxic,Decreased Stride Length ,Decreased Feet Clearance Factors Limiting Gait Function Factors Limiting Gait Function Decreased Activity Tolerance, Decreased Sensation,Decreased Strength,Incoordination,Poor Balance,Poor Safety Awareness Comments Gait Comments Pt has difficulty with RLE motor planning and coordination. Right foot tends to land inconsistently, with pt occasionally dragging his toe. Pt initially walked with cane held in right hand. Educated pt on rationale for use of cane in left hand. Pt switched and agreed he felt more stable. Pt had right toe drag x 2 and RLE buckling x 1. Cued pt to focus on RLE heelstrike to ensure foot clearance and he responded well. PT-Balance Assessment Sitting Balance and Reactions Static Sitting Balance Ability Good Dynamic Sitting Balance Ability Good Standing Balance and Reactions Static Standing Balance Ability Fair Dynamic Standing Balance Ability Fair Device Used tripod cane M5 PT-IP Objective Assessments Start: 12/15/21 12:30 Freq: NEEDED Status: Active Protocol: Document 12/15/21 10:21 AB (Rec: 12/15/21 12:56 AB [id number]) Orientation Orientation/Cognition Level of Alertness Alert Orientation Name,Place,Situation Language Function Ability No Deficits Noted Safety Awareness Decreased Safety Awareness Memory Description No Deficits Noted Gross Range of Motion Lower Extremity ROM Impairments R ankle decrease DF Strength Lower Extremity Strength Hip 4+/5 Knee 4+/5 Coordination Assessment Gross Coordination Gross Coordination Impaired Assessment Coordination Comments RLE lifting impairment with tendency to overshoot or undershoot target Sensation Assessment Sensation Gross Sensation Right LE Impaired Proprioception (Position) Impaired Muscle Tone Muscle Tone WNL Yes M6 PT-IP Treatment Start: 12/15/21 12:30 Freq: NEEDED Status: Active Protocol: Document 12/16/21 13:00 AW (Rec: 12/16/21 13:58 AW [id number]) Physical Therapy Treatment Education Education Provided Safety Other Treatments Other Treatment Performed Pt participated in standing balance activities including NBOS with EO and head turns, stride stance, step tap ( alternating BLE) on 7 step. M7 PT-IP Assessment and Plan Start: 12/15/21 12:30 Freq: NEEDED Status: Active Protocol: Document 12/16/21 13:00 AW (Rec: 12/16/21 13:58 AW [id number]) PT Summary Assessment and Plan Potential Status of Condition at Evaluation Evolving Summary Impairments Balance,Coordination,Sensation ,Transfers,Gait Progress Towards Goals Progressing Toward Goals Assessment Summary Pt ambulated 600 feet with hurry cane SBA/CGA. With focused attention, he was able to coordinate use of hurry cane in left hand, heelstrike RLE, and improved consistency of right foot placement. Pt is certainly an excellent candidate for acute rehab but he is refusing. Pt understands he should not drive currently and is open to home health therapies to progress coordination and gait quality. Goals Bed Mobility Goal Independent Transfer Goal Independent,Front Wheeled Walker Gait Goal Independent,Front Wheel Walker Gait Distance 200 Other Goals improve ambulation using hurrycane/without AD 250 ft Mod I up/down 3 steps L rail ascending + hurrycane mod I Days to Meet Goals 10 Frequency of Treatment Frequency Of Treatment Once a Day Treatment Plan Physical Therapy Treatment Plan Bed Mobility Training,Transfer Training,Gait Training, Therapeutic Exercise,Balance Retraining,Discharge Planning, Hot or Cold Pack,Neuromuscular Re-ed,Coordination Retraining ,Manual Therapy Other Recommendations and Next Treatment stairs Focus Precautions Other Precautions falls Recommendations To Nursing Amount of Assist Needed Independent Discharge Recommendations PT Discharge Recommendations Home with 24/ Assist Available,Home Health,Acute Rehab Equipment Needed for Home Before FWW Discharge Transportation Needs at Discharge Private Vehicle,Wheelchair/ Cabulance
[2021-12-16] MEDS: cefTRIAXone 1,000 MG VIAL 1000 MG IM (14:05)
--- NOTE | 2021-12-16 15:09 | PC.NURSE ---
Discharged by provider. Pt verbalized understanding of all written and verbal instructions. Escorted out via w/c in stable condition with all personal belongings to private vehicle.
--- NOTE | 2021-12-16 15:20 | CM.DPC ---
DCP/continued: Reviewed chart. Received verbal referral from Dr. Frazier that patient medically stable to d/c home today with home health. Per provider patient declines going into rehabiliation. CONGRESSIONAL ASSISTANT met with patient to discuss next d/c planning steps. Patient confirms that he would like to d/c home with HH vs. acute rehab. Patient reports that he has some assistance in the residence but needs to go home. Patient has no preference in HH agencies. Therefore, placed call to [facility] (agency listed on rotating calender) spoke with Carley and faxed referral. Per Carley she does not anticipate any issues with accepting referral. Carley reports that if she has trouble with staffing case she will pass on to another agency. However, she feels that this will not be needed. Brochure for facility provided to RN to give to patient with d/c instrucations. No additional needs identified. P: Home today with HH arrange through [facility] CANDIDO Limon
== END 2021-12-16 14:45 | disposition home health service (06) | DRG 65 ==
LOC: ED 14:34 → AC 14:52
PROVIDERS: Family Medicine; Admitting Provider Internal Medicine; Emergency Provider Emergency Medicine; PCP Family Medicine; Referring Provider Emergency Medicine; Visit Provider Family Medicine
DX: I63.9 Cerebral infarction, unspecified (principal); N39.0 Urinary tract infection, site not specified; I10 Essential (primary) hypertension; E78.5 Hyperlipidemia, unspecified; F32.A Depression, unspecified; M10.9 Gout, unspecified; R29.702 NIHSS score 2; R29.700 NIHSS score 0; K21.9 Gastro-esophageal reflux disease without esophagitis; Z20.822 Contact with and (suspected) exposure to COVID-19
CPT/HCPCS: 36415; 70450; 70496; 70498; 70551; 80048; 80053; 81001; 82550; 84484; 85025; 85027; 85610; 85730; 87077; 87086; 87635; 93005; 93010; 93306; 94760; 97112; 97116; 97140; 97162; 97166; 97530; 97535; 99222; 99284; C9803; J0696; J1650; Q9967

== ENCOUNTER → 2022-02-14 09:23 | Outpatient (CLI) | payer MEDICARE, OTHER, SELFPAY ==
[2021-12-14 15:57] VITALS: BMI 38.2
== END ==
PROVIDERS: Family Provider Family Medicine; PCP Family Medicine; Referring Provider Physician Assistant; Visit Provider Physician Assistant
DX: I63.9 Cerebral infarction, unspecified (principal)
CPT/HCPCS: 93246

== ENCOUNTER 2022-06-03 12:43 | Emergency (ER) | payer MEDICARE, OTHER, SELFPAY ==
[2021-12-14 15:57] VITALS: BMI 38.2
[2022-06-03] VITALS (23 sets, daily range): BP systolic 142–172; BP diastolic 64–98; PULSE 63–132; RESP 18–32; TEMP 37; O2SAT 93–96; BMI 28.5
--- NOTE | 2022-06-03 13:16 | DI.RAD.S_ITS ---
PROCEDURE: XR CHEST 1V INDICATIONS: chest pain TECHNIQUE: One view of the chest was acquired. COMPARISON: [facility], , CHEST 2 VIEW, 06/23/2012, 11:58. FINDINGS: Surgical changes and devices: None. Lungs and pleura: Lungs are clear. No pleural effusions or pneumothorax. Mediastinum: Mediastinal contours appear normal. Heart size is mildly enlarged. Bones and chest wall: No suspicious bony lesions. Overlying soft tissues appear unremarkable. IMPRESSION: Mild cardiomegaly. No acute pulmonary findings. Dictated by: Maricruz Sandoval M.D. on 06/03/2022 at 14:02 Approved by: Maricruz Sandoval M.D. on 06/03/2022 at 14:02
--- NOTE | 2022-06-03 13:16 | DI.CT.S_ITS ---
PROCEDURE: CT ANGIO HEAD AND NECK INDICATIONS: memory loss TECHNIQUE: Pre-contrast 4.5 mm thick sections acquired from the foramen magnum to the vertex. After the administration of intravenous contrast, 1 mm thick sections acquired from the aortic arch through the [place] of [place]. Post-contrast 4.5 mm thick sections then re-acquired from the foramen magnum to the vertex. 3-dimensional rvoadxv-jyiqnnowc-cnwcxcjqpi (MIP) and/or volume rendering reformats were acquired of the central intracranial vasculature and neck separately. For radiation dose reduction, the following was used: automated exposure control, adjustment of mA and/or kV according to patient size. COMPARISON: [facility], CT, CT ANGIO HEAD AND NECK, 12/14/2021, 13:37. FINDINGS: Image quality: Excellent. BRAIN: CSF spaces: Ventricles are normal in size and shape. Basal cisterns are patent. No extra-axial fluid collections. Brain: No midline shift. No intracranial bleeds or masses. Ramirez-white matter interface appears intact. Volume loss and deep and periventricular white matter changes are noted. There are small bilateral basal ganglia calcifications. Skull and face: Calvarium and facial bones appear intact, without suspicious lesions. Orbits appear normal. Sinuses: Sinuses and mastoids are clear. HEAD CT ANGIOGRAPHY: Anterior circulation: Atheromatous calcifications are present bilaterally within the cavernous portions of the internal carotid arteries. There is less than 50% stenosis present bilaterally. The flow within the paired anterior cerebral arteries is normal and symmetric. The flow within the middle cerebral arteries is normal and symmetric. The anterior communicating artery is seen. No aneurysms are seen. Posterior circulation: Visualized portions of the vertebral arteries demonstrate normal caliber, and join to form a normal appearing basilar artery. Flow within the posterior cerebral arteries is normal and symmetric. No aneurysms are seen. NECK CT ANGIOGRAPHY: Carotid system: The great vessels demonstrate a conventional anatomy as they arise from the aortic arch. Scattered atheromatous calcifications are present within the aortic arch. The origins of the common carotid arteries appear patent. The common carotid arteries demonstrate normal caliber and courses. Calcifications are present bilaterally at the carotid bulbs. There is less than 50% stenosis of the proximal internal carotid arteries. Posterior circulation: The origins of the vertebral arteries both appear widely patent. The more superior extracranial portions of both vertebral arteries also demonstrate normal courses. There is a focal moderate grade stenosis within the midportion of the right vertebral artery at C3-4 (series 13/image 66) secondary to focal neural foraminal stenosis. The left vertebral artery is normal in caliber throughout. They join to form a normal appearing basilar artery. Soft tissues: Visualized neck soft tissues demonstrate no suspicious abnormalities. Bones: No suspicious bony lesions. Visualized cervical spine appears normally aligned. IMPRESSION: 1. Less than 50% stenosis of the cavernous portions of the bilateral internal carotid arteries. 2. Focal moderate grade stenosis within the midportion of the right vertebral artery secondary to severe foraminal stenosis. 3. Less than 50% stenosis of the inferior bilateral internal carotid arteries near the carotid bulbs. 4. No acute intracranial findings. There are findings likely associated with chronic microvascular ischemic changes. 5. No other stenosis, occlusion, or aneurysm. Any quantitative measurements of stenosis were performed using NASCET criteria. Dictated by: Maricruz Sandoval M.D. on 06/03/2022 at 14:46 Approved by: Maricruz Sandoval M.D. on 06/03/2022 at 14:57
[2022-06-03 13:38] LABS: Add Manual Diff / Slide Review NO; Basophils Absolute Auto 0 /uL (0-100); Basophils Percent Auto 0.5 % (0-2); Eosinophils Absolute Auto 0 /uL (0-450); Eosinophils Percent Auto 0.3 % (2-4); Hematocrit 45.4 % (41-53); Hemoglobin 15.5 g/dL (13.5-17.5); Lymphocytes Absolute Auto 1900 /uL (1100-4500); Lymphocytes Percent Auto 23.3 % (25-40); Mean Corpuscular HGB Conc 34.1 % (30-36); Mean Corpuscular Hemoglobin 30.6 PG (26-34); Mean Corpuscular Volume 89.8 fL (80-100); Monocytes Absolute Auto 600 /uL (0-900); Monocytes Percent Auto 7.1 % (3-14); Neutrophils Absolute Auto 5600 /uL (1500-7000); Neutrophils Percent Auto 68.8 % (50-75); Platelet Count 179 X10^3/uL (150-400); Red Blood Cell Count 5.06 X10^6/uL (4.5-5.9); Red Cell Distribution Width 14.7 % (11.6-14.8); White Blood Cell Count 8.1 X10^3/uL (4.5-11.0)
[2022-06-03 13:59] LABS: Alanine Aminotransferase 38 IU/L (<50); Albumin 4.2 g/dL (3.5-5.0); Albumin Globulin Ratio 1.2 (1.0-2.8); Alkaline Phosphatase 66 U/L (38-126); Aspartate Aminotransferase 29 IU/L (17-59); BUN Creatinine Ratio 18.1 (6-22); Bilirubin Total 0.9 mg/dL (0.2-1.3); Blood Urea Nitrogen 15 mg/dL (9-20); Calcium 8.8 mg/dL (8.4-10.2); Carbon Dioxide 26 mmol/L (22-32); Chloride 104 mmol/L (98-107); Creatine Kinase 74 U/L (55-170); Estimated Glomerular Filt Rate > 60 mL/min (>60); Globulin 3.5 g/dL (1.7-4.1); Glucose 139 mg/dL (80-110); HEMOLYSIS < 15 (0-50); Lipase 45 U/L (23-300); Magnesium 1.8 mg/dL (1.6-2.3); Potassium 4.3 mmol/L (3.4-5.1); Sodium 137 mmol/L (137-145); Total Protein 7.7 g/dL (6.3-8.2)
--- NOTE | 2022-06-03 14:01 | ED.NEUROSD ---
HPI - Neuro Symptoms/Deficit General Chief Complaint: Neuro Symptoms/Deficit Stated Complaint: woke up short term memory is gone for the last day Time Seen by Provider: 06/03/22 13:57 Source: patient Mode of arrival: Ambulatory History of Present Illness HPI Narrative: Patient is a 72-year-old male history of a CVA and December 2021 hypertension hyperlipidemia, anxiety presents today with difficulty remembering. He states he went to [place] yesterday, a big a festival, and has no recollection of it. He looked at many pictures he only vaguely remembers being there he apparently sent pictures to friends but he has no memory. He says he barely remembers last week. He has no numbness tingling or weakness. He has no chest pain. He was able to drive himself here. His also has dementia and is overall not helpful in this particular situation. He remembers long-term memory however not short term. Does not seem to have repetitive questioning. Unclear of year. No slurring of speech or difficulty speaking On Anticoagulants: No Related Data Home Medications Medication Instructions Recorded Confirmed enalapril maleate 20 mg tablet 20 mg PO BEDTIME 12/14/21 03/18/22 omeprazole 20 mg tablet,delayed 20 mg PO BEDTIME 12/14/21 03/18/22 release Previous Rx's Medication Instructions Recorded aspirin 81 mg tablet,delayed 81 mg PO DAILY #30 tabs 12/16/21 release atorvastatin 20 mg tablet (Lipitor) 80 mg PO BEDTIME #30 tabs 12/16/21 allopurinol 300 mg tablet See Rx Instructions .Route 02/25/22 .COMPLEX #90 tabs venlafaxine 150 mg See Rx Instructions .Route 04/08/22 capsule,extended release 24 hr .COMPLEX #90 caps triazolam 0.25 mg tablet 0.25 mg PO BEDTIME PRN sleep #90 04/17/22 tabs Allergies Allergy/AdvReac Type Severity Reaction Status Date / Time No Known Drug Allergies Allergy Verified 06/03/22 13:29 Review of Systems Review of Systems Narrative: GENERAL: Denies chills, fatigue, malaise, fever, sweats, travel HEENT: Denies sinus pain, ear pain, sore throat, difficulty swallowing, neck pain RESPIRATORY: Denies dyspnea, cough, wheezing, hemoptysis, sputum. CARDIOVASCULAR: Denies chest pain, palpitations, orthopnea, edema GASTROINTESTINAL: Denies nausea, vomiting, abdominal pain, diarrhea, constipation, melena. : Denies dysuria, frequency, incontinence, hematuria, urinary retention, flank pain. MUSCULOSKELETAL: Denies weakness, joint pain, or bony pain SKIN: No rash, no erythema, no pruritus NEUROLOGIC: See HPI PSYCHIATRIC: No concerning psychosocial issues. 12 point review of systems is negative except for those stated above and HPI Hematologic/Lymphatic On Anticoagulants: No Patient History Medical History Acid reflux Ankle pain (1963) Chicken pox (1954) Depression Diaphoresis Gout (2001) Hyperlipidemia Hypertension Kidney stones (2011) Mumps (1957) Obstructive sleep apnea of adult (2007) Snoring Surgical History Anesthesia History of colonoscopy (08/12/12) History of left heart catheterization (LHC) (02/08/14) History of right cataract surgery (08/08/17) History of surgery on arm (1966) Family History Father Cancer Colon cancer [place] (myocardial infarction) Mother Age: 99 Pacemaker Brother Lung cancer Brother Liver cancer Grandfather [place] (myocardial infarction) Grandmother No problems noted. Sister No problems noted. Social History marital status: household members: spouse occupational status: previously employed Smoking Status: Never smoker alcohol intake: current substance use type: does not use Smoking Status: Never smoker alcohol intake frequency: holidays/special occasions only Substance Use Type: does not use Exam Initial Vital Signs Initial Vital Signs: Vital Signs Temperature 98.6 F 06/03/22 13:09 Pulse Rate 70 06/03/22 13:09 Respiratory Rate 18 06/03/22 13:09 Blood Pressure 172/76 H 06/03/22 13:09 Pulse Oximetry 96 06/03/22 13:09 Oxygen Delivery Method 06/03/22 13:09 GENERAL: Alert pleasant 72-year-old male and in no acute distress. HEENT: Head atraumatic,EOMI, pupils reactive, face symmetric, moist mucous membranes CARDIOVASCULAR: Regular rate and rhythm without murmurs, rubs or gallops. RESPIRATORY: Breath sounds equal bilaterally, no wheezes rales or rhonchi. ABDOMEN: Soft, nontender. Normoactive bowel sounds all 4 quadrants. No guarding or rebound. EXTREMITIES: Normal range of motion, no clubbing or edema. Neurovascularly intact NEUROLOGICAL: Alert and oriented x3.Normal gait and speech. Cranial nerves II through XII grossly intact. Good rqrvwn-ep-gvqo, good eqrm-sm-cixc, strength equal bilaterally, no dysarthria or aphasia, sensation in tact to soft touch bilaterally, no visual changes, no facial droop SKIN: Warm, dry, no laceration, no petechiae, no rashes or lesions. Scores NIH Stroke Scale Level of Conciousness: Alert, keenly responsive Ask month/age: Answers one question correctly, intubated follow commands Open/close eyes, close hand: Performs both tasks correctly Best gaze horizontal: Normal Visual mehta: No visual loss Facial palsy: Normal symetrical movement Left arm drift: No drift for full 10 sec Right arm drift: No drift for full 10 sec Left leg drift: No drift for full 5 sec Right leg drift: No drift for full 5 sec Limb ataxia: Absent Sensory on face/arms/legs: Normal, no sensory loss Best language: No aphasia, normal Dysarthria: Normal Extinction or inattention: No abnormality Total NIH Stroke scale score: 1 Course Orders Ordered: ED Orders 06/03/22 13:16 CT angio head and neck Stat XR chest 1V Stat EKG-12 Lead Stat 06/03/22 13:26 Complete Blood Count AUTO DIFF Stat Comprehensive Metabolic Panel Stat Lipase Stat Magnesium Stat Troponin & CK Cardiac Panel Stat 06/03/22 15:44 MR head/brain wo con Stat Vital Signs Vital signs: Vital Signs - 8 hr 06/03/22 13:09 06/03/22 14:04 06/03/22 14:06 Temperature 98.6 F Pulse Rate 70 68 67 Respiratory Rate 18 19 24 Blood Pressure 172/76 H Pulse Oximetry 96 93 94 Oxygen Delivery Method Room Air Room Air Room Air 06/03/22 14:06 06/03/22 14:22 06/03/22 14:22 Temperature Pulse Rate 70 Respiratory Rate Blood Pressure 161/75 H 160/71 H Pulse Oximetry 95 Oxygen Delivery Method Room Air 06/03/22 14:30 06/03/22 14:30 06/03/22 14:45 Temperature Pulse Rate 66 Respiratory Rate 23 Blood Pressure 148/76 H 149/80 H Pulse Oximetry 94 Oxygen Delivery Method Room Air 06/03/22 14:45 06/03/22 15:00 06/03/22 15:00 Temperature Pulse Rate 68 70 Respiratory Rate 27 H 25 H Blood Pressure 142/83 H Pulse Oximetry 94 96 Oxygen Delivery Method Room Air 06/03/22 15:30 06/03/22 15:33 06/03/22 15:33 Temperature Pulse Rate 73 65 Respiratory Rate 21 Blood Pressure 171/74 H Pulse Oximetry 94 96 Oxygen Delivery Method Room Air Room Air 06/03/22 15:45 06/03/22 15:45 06/03/22 16:00 Temperature Pulse Rate 67 67 Respiratory Rate 26 H Blood Pressure 153/64 H Pulse Oximetry 95 95 Oxygen Delivery Method Room Air Room Air 06/03/22 16:16 06/03/22 16:16 06/03/22 16:30 Temperature Pulse Rate 63 Respiratory Rate 25 H Blood Pressure 153/70 H 149/70 H Pulse Oximetry 95 Oxygen Delivery Method Room Air 06/03/22 16:30 06/03/22 16:42 06/03/22 16:42 Temperature Pulse Rate 63 132 H Respiratory Rate 24 19 Blood Pressure 171/98 H Pulse Oximetry 96 95 Oxygen Delivery Method Room Air 06/03/22 16:46 06/03/22 16:46 06/03/22 17:21 Temperature Pulse Rate 80 82 Respiratory Rate 27 H 23 Blood Pressure 161/72 H Pulse Oximetry 95 95 Oxygen Delivery Method Room Air 06/03/22 17:23 06/03/22 17:23 06/03/22 17:30 Temperature Pulse Rate 67 Respiratory Rate 27 H Blood Pressure 167/76 H 149/78 H Pulse Oximetry 95 Oxygen Delivery Method 06/03/22 17:30 06/03/22 18:00 06/03/22 18:01 Temperature Pulse Rate 76 77 Respiratory Rate 26 H Blood Pressure 152/75 H Pulse Oximetry 95 94 Oxygen Delivery Method Room Air 06/03/22 18:01 06/03/22 18:22 06/03/22 18:22 Temperature Pulse Rate 79 83 Respiratory Rate 25 H 22 Blood Pressure 165/87 H Pulse Oximetry 94 93 Oxygen Delivery Method Room Air Room Air 06/03/22 18:30 06/03/22 18:30 06/03/22 18:36 Temperature Pulse Rate 79 Respiratory Rate 32 H Blood Pressure 167/90 H 155/79 H Pulse Oximetry 95 Oxygen Delivery Method 06/03/22 18:36 Temperature Pulse Rate 71 Respiratory Rate 29 H Blood Pressure Pulse Oximetry 95 Oxygen Delivery Method MDM - Neuro Symptoms/Deficit Lab Data Result diagrams: 06/03/22 13:26 06/03/22 13:26 Labs: Lab Results 06/03/22 06/03/22 Range/Units 13:26 13:26 WBC 8.1 (4.5-11.0) X10^3/uL RBC 5.06 (4.5-5.9) X10^6/uL Hgb 15.5 (13.5-17.5) g/dL Hct 45.4 (41-53) % MCV 89.8 (80-100) fL MCH 30.6 (26-34) PG MCHC 34.1 (30-36) % RDW 14.7 (11.6-14.8) % Plt Count 179 (150-400) X10^3/uL Neut % (Auto) 68.8 (50-75) % Lymph % (Auto) 23.3 L (25-40) % [place] % (Auto) 7.1 (3-14) % Eos % (Auto) 0.3 L (2-4) % Baso % (Auto) 0.5 (0-2) % Neut # (Auto) 5600 (3235-2174) /uL Lymph # (Auto) 1900 (2446-5877) /uL [place] # (Auto) 600 (0-900) /uL Eos # (Auto) 0 (0-450) /uL Baso # (Auto) 0 (0-100) /uL Sodium 137 (137-145) mmol/L Potassium 4.3 (3.4-5.1) mmol/L Chloride 104 (98-107) mmol/L Carbon Dioxide 26 (22-32) mmol/L BUN 15 (9-20) mg/dL Creatinine 0.83 (0.66-1.25) mg/dL Estimated GFR > 60 (>60) mL/min BUN/Creatinine Ratio 18.1 (6-22) Glucose 139 H (80-110) mg/dL Calcium 8.8 (8.4-10.2) mg/dL Magnesium 1.8 (1.6-2.3) mg/dL Total Bilirubin 0.9 (0.2-1.3) mg/dL AST 29 (17-59) IU/L ALT 38 (<50) IU/L Alkaline Phosphatase 66 (38-126) U/L Total Creatine Kinase 74 (55-170) U/L CK-MB (CK-2) TNP CK-MB (CK-2) Rel Index TNP Troponin I < 0.012 (0.01-0.034) ng/mL Total Protein 7.7 (6.3-8.2) g/dL Albumin 4.2 (3.5-5.0) g/dL Globulin 3.5 (1.7-4.1) g/dL Albumin/Globulin Ratio 1.2 (1.0-2.8) Lipase 45 (23-300) U/L Imaging Data Chest x-ray: Radiologist's Impression: nt: Heydi,James Efraín MR#: [id number] : 1950 Acct:[id number] Age/Sex: 72 / M Date of Service: 06/03/22 Loc: ED Accession Number: [id number] ?? Procedure: XR chest 1V Ordering Provider: Sue Alvarenga D.O. PROCEDURE:? XR CHEST 1V ? INDICATIONS:? chest pain ? TECHNIQUE:? One view of the chest was acquired.? ? COMPARISON:? [facility], , CHEST 2 VIEW, 06/23/2012, 11:58. ? FINDINGS:? ? Surgical changes and devices:? None.? ? Lungs and pleura:? Lungs are clear.? No pleural effusions or pneumothorax.? ? Mediastinum:? Mediastinal contours appear normal.? Heart size is mildly enlarged. ? Bones and chest wall:? No suspicious bony lesions.? Overlying soft tissues appear unremarkable.? ? IMPRESSION:? Mild cardiomegaly.? No acute pulmonary findings. ? ? Dictated by: Maricruz Sandoval M.D. on 06/03/2022 at 14:02 ? ? Approved by: Maricruz Sandoval M.D. on 06/03/2022 at 14:02 ? CTA - brain/neck: Radiologist's Impression: Venkat Soliz Efraín MR#: [id number] : 1950 Acct:[id number] Age/Sex: 72 / M Date of Service: 06/03/22 Loc: Accession Number: [id number] ?? Procedure: CT angio head and neck Ordering Provider: Sue Alvarenga D.O. PROCEDURE:? CT ANGIO HEAD AND NECK ? INDICATIONS:? memory loss ? TECHNIQUE:? Pre-contrast 4.5 mm thick sections acquired from the foramen magnum to the vertex.? After the administration of intravenous contrast, 1 mm thick sections acquired from the aortic arch through the [place] of [place].? Post-contrast 4.5 mm thick sections then re-acquired from the foramen magnum to the vertex.? 3-dimensional cfbzjsz-aohomsxws-ppayqvgesa (MIP) and/or volume rendering reformats were acquired of the central intracranial vasculature and neck separately. For radiation dose reduction, the following was used:? automated exposure control, adjustment of mA and/or kV according to patient size.? ? COMPARISON:? [facility], CT, CT ANGIO HEAD AND NECK, 12/14/2021, 13:37. ? FINDINGS:? Image quality:? Excellent.? ? BRAIN:? CSF spaces:? Ventricles are normal in size and shape.? Basal cisterns are patent.? No extra-axial fluid collections.? ? Brain:? No midline shift.? No intracranial bleeds or masses.? Ramirez-white matter interface appears intact.? Volume loss and deep and periventricular white matter changes are noted. ?There are small bilateral basal ganglia calcifications. ? Skull and face:? Calvarium and facial bones appear intact, without suspicious lesions.? Orbits appear normal.? ? Sinuses:? Sinuses and mastoids are clear.? ? HEAD CT ANGIOGRAPHY:? Anterior circulation:? Atheromatous calcifications are present bilaterally within the cavernous portions of the internal carotid arteries.? There is less than 50% stenosis present bilaterally.? The flow within the paired anterior cerebral arteries is normal and symmetric.? The flow within the middle cerebral arteries is normal and symmetric.? The anterior communicating artery is seen.? No aneurysms are seen.? ? Posterior circulation:? Visualized portions of the vertebral arteries demonstrate normal caliber, and join to form a normal appearing basilar artery.? Flow within the posterior cerebral arteries is normal and symmetric.? No aneurysms are seen.? ? NECK CT ANGIOGRAPHY:? Carotid system:? The great vessels demonstrate a conventional anatomy as they arise from the aortic arch. Scattered atheromatous calcifications are present within the aortic arch.? The origins of the common carotid arteries appear patent.? The common carotid arteries demonstrate normal caliber and courses.? Calcifications are present bilaterally at the carotid bulbs.? There is less than 50% stenosis of the proximal internal carotid arteries. ? Posterior circulation:? The origins of the vertebral arteries both appear widely patent.? The more superior extracranial portions of both vertebral arteries also demonstrate normal courses.? There is a focal moderate grade stenosis within the midportion of the right vertebral artery at C3-4 (series 13/image 66) secondary to focal neural foraminal stenosis.? The left vertebral artery is normal in caliber throughout.? They join to form a normal appearing basilar artery.? ? Soft tissues:? Visualized neck soft tissues demonstrate no suspicious abnormalities.? ? Bones:? No suspicious bony lesions.? Visualized cervical spine appears normally aligned.? IMPRESSION:? ? 1. Less than 50% stenosis of the cavernous portions of the bilateral internal carotid arteries. ? 2. Focal moderate grade stenosis within the midportion of the right vertebral artery secondary to severe foraminal stenosis. ? 3. Less than 50% stenosis of the inferior bilateral internal carotid arteries near the carotid bulbs. ? 4. No acute intracranial findings.? There are findings likely associated with chronic microvascular ischemic changes.? ? 5. No other stenosis, occlusion, or aneurysm.? ? Any quantitative measurements of stenosis were performed using NASCET criteria.? ? ? Dictated by: Maricruz Sandoval M.D. on 06/03/2022 at 14:46 ? ? MR: Radiologist's Impression: : Venkat Soliz MR#: [id number] : 1950 Acct:[id number] Age/Sex: 72 / M Date of Service: 06/03/22 Loc: ED Accession Number: [id number] ?? Procedure: MR head/brain wo con Ordering Provider: Sue Alvarenga D.O. PROCEDURE:? MR HEAD/BRAIN WO CON ? INDICATIONS:? Neurologic deficit ? TECHNIQUE:? Noncontrast axial T1 spin echo, axial T2 fast spin echo, sagittal and axial FLAIR, coronal T2 fast spin echo, axial gradient echo, axial diffusion and ADC through the brain.? ? COMPARISON:? [facility], MR, MR HEAD/BRAIN WO CON, 12/14/2021, 15:19. ? FINDINGS:? Image quality:? Excellent.? ? CSF Spaces:? Basal cisterns are patent.? No extra-axial fluid collections.? Ventricles are normal in size and shape.? ? Brain:? No intracranial masses or hemorrhage.? Ramirez/white matter interface is normal.? Brainstem appears normal.? Diffusion-weighted images demonstrate no acute infarct.? Normal intravascular flow voids are present.? Atrophy and multifocal white matter chronic ischemic change present. ? Skull and face:? Calvarium has normal marrow signal.? Orbits appear normal.? Bilateral intraocular lens replacements noted. ? Sinuses:? Sinuses and mastoids are clear.? ? IMPRESSION:? Atrophy and chronic ischemic change without acute infarct, hemorrhage or mass lesion ? ? ? Approved by: Nilson Fritz M.D. on 06/03/2022 at 16:45? ECG Data Interpretation: EKG 1. Normal sinus rhythm rate 69 MO interval 154 QRS 82 QTC 420 similar to previous EKG EKG 2. SVT versus atrial flutter with PVCs no ST changes MDM Narrative Medical decision making narrative: Patient is here with amnesia. He is real no focal deficits. He does not have repetitive questioning like transient global amnesia. He has no chest pain or palpitations. He does have a previous stroke back in December seen on MRI. Mental status here in the ED overall seems appropriate, he just can not remember yesterday or last week. 1530Dr. Kendall, neurologist at [facility] has not been a patient's symptoms test results reviewed CT angio agrees with not in acute stroke. However distal possible for transient global amnesia. Also possible for temporal seizure. Recommend MRI if possible while in the ED otherwise as an outpatient and outpatient EEG and follow up with Neurology. After conversation with Neurology patient had a read me at change. He has since been in sinus rhythm. MRI is negative. He overall feels well. I have touch base with PCP for follow follow-up with him. Discharge Plan Departure Patient Disposition: Home Clinical Impression: Amnesia Instructions: DI for Amnesia Activity Restrictions/Additional Instructions: *You have been diagnosed with amnesia *What to do: At this time it is unclear what is causing your symptoms. He will need to follow-up with neurology for possible further workup. May also need a Holter monitor for any rhythm me a we saw briefly in the emergency department *Continue to take medications as directed *Follow up with your primary care provider in 2-3 days or call [phone] *Return to ER if you should have worsening symptoms numbness, tingling, weakness, chest pain, palpitations, passing out or any new, worsening or concerning symptoms Prescriptions: No Action allopurinol 300 mg tablet See Rx Instructions .ROUTE .COMPLEX Qty: 90 1RF Dose Instruction: take 1 tablet by mouth once daily Rx Instructions: take 1 tablet by mouth once daily venlafaxine 150 mg capsule,extended release 24hr See Rx Instructions .ROUTE .COMPLEX Qty: 90 3RF Dose Instruction: take 1 capsule by mouth once daily Rx Instructions: take 1 capsule by mouth once daily triazolam 0.25 mg tablet 0.25 mg PO BEDTIME PRN (Reason: sleep) Qty: 90 1RF enalapril maleate 20 mg tablet 20 mg PO BEDTIME omeprazole 20 MG tablet,delayed release (DR/EC) 20 mg PO BEDTIME atorvastatin [Lipitor] 20 mg Tablet 80 mg PO BEDTIME Qty: 30 0RF aspirin 81 mg Tablet,Delayed Release (Dr/Ec) 81 mg PO DAILY Qty: 30 0RF Referrals: Ray Landeros MD [Primary Care Provider] - Visit Report Forms: Patient Portal/API
[2022-06-03 14:09] LABS: Troponin I < 0.012 ng/mL (0.01-0.034)
--- NOTE | 2022-06-03 15:44 | DI.MRI.S_ITS ---
PROCEDURE: MR HEAD/BRAIN WO CON INDICATIONS: Neurologic deficit TECHNIQUE: Noncontrast axial T1 spin echo, axial T2 fast spin echo, sagittal and axial FLAIR, coronal T2 fast spin echo, axial gradient echo, axial diffusion and ADC through the brain. COMPARISON: [facility], , MR HEAD/BRAIN WO CON, 12/14/2021, 15:19. FINDINGS: Image quality: Excellent. CSF Spaces: Basal cisterns are patent. No extra-axial fluid collections. Ventricles are normal in size and shape. Brain: No intracranial masses or hemorrhage. Ramirez/white matter interface is normal. Brainstem appears normal. Diffusion-weighted images demonstrate no acute infarct. Normal intravascular flow voids are present. Atrophy and multifocal white matter chronic ischemic change present. Skull and face: Calvarium has normal marrow signal. Orbits appear normal. Bilateral intraocular lens replacements noted. Sinuses: Sinuses and mastoids are clear. IMPRESSION: Atrophy and chronic ischemic change without acute infarct, hemorrhage or mass lesion Approved by: Nilson Fritz M.D. on 06/03/2022 at 16:45
--- NOTE | 2022-06-03 15:44 | PC.NURSE ---
Spoke to pt, he recalls Dr. Alvarenga coming in room earlier during visit and what has happened since he has been here in the ER.
--- NOTE | 2022-06-03 17:00 | PC.NURSE ---
Patient on telemetry HR noted to convert from 69 to 130's, patient denies symptoms- chest pain, SOB, or palpitations or dizziness. Dr. Alvarenga notified, EKG completed. At 16:41 patient noted to convert HR 69.
== END 2022-06-03 18:52 | disposition home or self-care (01) ==
PROVIDERS: Emergency Provider Emergency Medicine; Family Provider Family Medicine; PCP Family Medicine
DX: R41.3 Other amnesia (principal); R07.9 Chest pain, unspecified
CPT/HCPCS: 36415; 70496; 70498; 70551; 71045; 80053; 82550; 83690; 83735; 84484; 85025; 93005; 99284; 99285; Q9967

== ENCOUNTER → 2022-06-20 13:14 | Outpatient (CLI) | payer MEDICARE, OTHER, SELFPAY ==
[2022-06-04 09:56] VITALS: BMI 38.2
--- NOTE | 2022-07-08 08:53 | P.HOLT.S_ITS ---
Canvas [facility]utter Report Referral & Results Date Patient Seen: 06/20/22 Requesting provider: Ray Landeros Indication: TIA Duration of monitoring (days): 7 Diary information: There were 2 patient triggered events and 1 patient diary entry All 3 of these patient events were variably associated with SVT and PVCs Data: Minimum heart rate identified was 53 beats per minute at 03:35 on 06/24/2022 Maximum sinus heart rate was 118 beats per minute at 03:08 on 06/23/2022 Maximum overall heart rate was 226 beats per minute at 12:41 on 06/22/2022 during a run of SVT Less than 1% of identified beats were supraventricular ectopic in origin which classify them as rare Approximately 3.8% of identified beats were ventricular ectopic in origin which classify them as occasional There were 13 runs of ventricular tachycardia as defined by 4 beats or more with the longest being a 5 beat run at 121 beats per minute There 179 runs of SVT with the fastest being an 8.5 second run at 226 beats per minute, the longest lasting 57 minutes 33 seconds at a rate of 166 beats per minute Ventricular bigeminy and ventricular trigeminy were also noted upon occasion There were no pauses of 3 seconds or longer or episodes of atrial fibrillation identified on this study Impression: 6+ day phototypesetting equipment monitor demonstrating rare but more extended runs of SVT as well as multiple episodes of ventricular tachycardia Clinical correlation suggested
== END ==
PROVIDERS: Family Provider Family Medicine; PCP Family Medicine; Referring Provider Family Medicine; Visit Provider Family Medicine
DX: G45.4 Transient global amnesia (principal)
CPT/HCPCS: 93242; 93244

== ENCOUNTER → 2023-07-05 08:12 | Outpatient (CLI) | payer MEDICARE, OTHER, SELFPAY ==
[2022-06-04 09:56] VITALS: BMI 38.2
[2023-07-05 09:13] LABS: Add Manual Diff / Slide Review NO; Basophils Absolute Auto 100 /uL (0-100); Basophils Percent Auto 0.7 % (0-2); Eosinophils Absolute Auto 100 /uL (0-450); Eosinophils Percent Auto 1.9 % (2-4); Hematocrit 46.5 % (41-53); Hemoglobin 15.8 g/dL (13.5-17.5); Lymphocytes Absolute Auto 2000 /uL (1100-4500); Mean Corpuscular Hemoglobin 31.1 PG (26-34); Mean Corpuscular Volume 91.4 fL (80-100); Monocytes Absolute Auto 900 /uL (0-900); Monocytes Percent Auto 12.2 % (3-14); Neutrophils Absolute Auto 4100 /uL (1500-7000); Neutrophils Percent Auto 57.2 % (50-75); Platelet Count 171 X10^3/uL (150-400); Red Blood Cell Count 5.09 X10^6/uL (4.5-5.9); Red Cell Distribution Width 14.4 % (11.6-14.8); White Blood Cell Count 7.1 X10^3/uL (4.5-11.0)
[2023-07-05 09:29] LABS: Alanine Aminotransferase 30 IU/L (<50); Albumin 4.5 g/dL (3.5-5.0); Albumin Globulin Ratio 1.3 (1.0-2.8); Alkaline Phosphatase 91 U/L (38-126); Aspartate Aminotransferase 28 IU/L (17-59); BUN Creatinine Ratio 21.4 (6-22); Bilirubin Total 0.6 mg/dL (0.2-1.3); Blood Urea Nitrogen 18 mg/dL (9-20); Calcium 9.5 mg/dL (8.4-10.2); Carbon Dioxide 25 mmol/L (22-32); Chloride 104 mmol/L (98-107); Cholesterol 160 mg/dL (140-199); Estimated Glomerular Filt Rate > 60 mL/min (>60); Globulin 3.6 g/dL (1.7-4.1); Glucose 95 mg/dL (80-110); HDL Cholesterol 48 mg/dL (40-60); HEMOLYSIS < 15 (0-50); LDL Cholesterol Calculated 79 mg/dL (<100); Sodium 139 mmol/L (137-145); Total Protein 8.1 g/dL (6.3-8.2); Triglycerides 166 mg/dL (35-150)
[2023-07-05 09:57] LABS: TSH w/ Reflex to FT4 1.32 uIU/mL (0.47-4.68)
== END ==
PROVIDERS: Family Provider Family Medicine; PCP Family Medicine; Referring Provider Family Medicine; Visit Provider Family Medicine
DX: E78.2 Mixed hyperlipidemia (principal); I10 Essential (primary) hypertension
CPT/HCPCS: 36415; 80053; 80061; 84443; 85025

== ENCOUNTER 2023-09-26 08:49 | Day surgery (SDC) | payer MEDICARE, OTHER, SELFPAY ==
[2022-06-04 09:56] VITALS: BMI 38.2
--- NOTE | 2023-09-26 | PATH_ITS ---
[facility] Accession Number: [id number] No. of containers..01 Tissue . 01 Material submitted: . colon - ASCENDING POLYP . 01 Diagnosis: Ascending Colon Polyp, Biopsy: Tubular adenoma. MRV 09/29/2023 1342 Local . 01 Electronically signed: . Susan Mott MD, Pathologist NPI- [id number] . 01 Gross description: . ASCENDING POLYP : Received in formalin is 2 fragment(s) of greene, soft tissue measuring 0.2 x 0.1 x 0.1 cm to 0.1 x 0.1 x 0.1 cm submitted entirely in 1 cassette(s) /AAY 09/27/2023 0619 Local . 01 Pathologist provided ICD-10: D12.2 . 01 CPT . 038899 Specimen Comment: A courtesy copy of this report has been sent to [phone] Performed at: 01 [facility] [address] [place] [address], [place], [place] [id number] MD Laz Renae MD Phone: [phone]
[2023-09-26 10:15] VITALS: BP 145/77; PULSE 70; RESP 18; TEMP 36.6; O2SAT 94
[2023-09-26] MEDS: LACTATED RINGERS 1,000 ML 42 ML IV (10:25)
--- NOTE | 2023-09-26 10:50 | P.HP_ITS ---
History of Present Illness History of Present Illness Date Patient Seen: 09/26/23 Time Patient Seen: 10:50 Chief complaint: WAC Narrative: family history for colon cancer, father and brother( at 65 from colon cancer) no symptoms last scope 5 years ago [facility] Medical History Cerebrovascular accident Depression Diaphoresis Kidney stones (2011) Chicken pox (1954) Mumps (1957) Ankle pain (1963) Gout (2001) Acid reflux Hyperlipidemia Hypertension Obstructive sleep apnea of adult (2007) Snoring Surgical History History of left heart catheterization (LHC) (02/08/14) History of colonoscopy (08/12/12) History of right cataract surgery (08/08/17) Anesthesia History of surgery on arm (1966) Family History Father Cancer Colon cancer [place] (my[place] infarction) Mother Age: 100 Pacemaker Brother Lung cancer Brother Liver cancer Grandfather [place] (myocardial infarction) Grandmother No problems noted. Sister No problems noted. Social History marital status: household members: spouse occupational status: previously employed Smoking Status: Never smoker alcohol intake: current substance use type: does not use Meds Home Medications and Allergies Home Medications Medication Instructions Recorded Confirmed Type omeprazole 20 mg tablet,delayed 20 mg PO BEDTIME 12/14/21 09/26/23 History release buspirone 5 mg tablet 5 mg PO BID #180 tabs 07/10/23 09/26/23 Rx allopurinol 300 mg tablet 300 mg PO DAILY #90 tabs 07/24/23 09/26/23 Rx atorvastatin 80 mg tablet 80 mg PO DAILY #90 tabs 07/24/23 09/26/23 Rx enalapril maleate 20 mg tablet 20 mg PO BEDTIME #90 tabs 07/24/23 09/26/23 Rx metoprolol succinate 25 mg 25 mg PO DAILY #90 tabs 07/24/23 09/26/23 Rx tablet,extended release 24 hr sodium,potassium,mag sulfates 17.5 See Rx Instructions PO .COMPLEX 09/04/23 Rx gram-3.13 gram-1.6 gram oral soln #354 mL (Suprep Bowel Prep Kit) Allergies Allergy/AdvReac Type Severity Reaction Status Date / Time No Known Drug Allergies Allergy Verified 09/26/23 10:09 Exam Vital Signs (past 8 hours): - 09/26/23 10:15 Temperature 97.8 F Pulse Rate 70 Respiratory Rate 18 Blood Pressure 145/77 H Pulse Oximetry 94 Oxygen Delivery Method Room Air Oxygen Delivery Method Room Air Const General: cooperative and healthy appearing [facility] Head: normocephalic and atraumatic Eyes General: appearance normal, both eyes and all related structures Sclera: sclerae normal Neck Neck: trachea midline Resp Effort & Inspection: normal respiratory effort and able to speak in complete sentences Cardio Rate: regular rate Rhythm: regular rhythm GI Palpation: soft Skin General: turgor normal and atrophy Neuro General: patient alert, patient awake and patient oriented x3 Cognition: normal cognition Psych Mental Status: mental status grossly normal Affect: normal affect Judgment: judgment good Assessment & Plan Assessment & Plan narrative: Family history for colon cancer Plan: colonoscopy with anesthesia Time Spent With Patient Time with patient: less than 30 minutes
--- NOTE | 2023-09-26 11:24 | PM.OP.COLON ---
Operative Date/Time/Diagnoses Date of procedure: 09/26/23 Time of procedure: 11:25 Pre-op diagnosis: Family history colon cancer Post-op diagnosis: same Procedure & Clinicians Study performed: Colonoscopy with cold forceps polypectomy using anesthesia Same procedure as scheduled: Yes Indications: Family history colon polyps Surgeon: Lesley Villa Procedure Notes Procedure in detail: Preop diagnosis: Family history colon polyps Postop diagnosis: Same Operative procedure: Colonoscopy with cold forceps polypectomy using anesthesia Surgeon: Kristine Villa MD Findings: Severe large diverticulosis of the sigmoid colon, ascending colon polyp 3 mm, sessile. Procedure: Patient placed in a lateral position. Rectal exam performed showing normal tone no masses. Colonoscope inserted into the rectum and advanced to ileocecal valve with minimal difficulty. Insufflation and extraction of the scope and the above findings. Retroflex was included in the rectum Impression: Severe large diverticulosis of the sigmoid colon. Single ascending colon polyp 3 mm in size taken with cold forceps. Plan: Repeat colonoscopy in 5 years as long as patient remains in good health. Findings: divertiulosis and polyp(s) Specimen(s): other (Ascending colon polyp 3 mm.) Complications: none Post-procedure Recommendations: Colonoscopy in 5 years Follow up: as needed Disposition: PACU
[2023-09-26 11:30] VITALS: BP 126/72; PULSE 72; RESP 16; TEMP 36.8; O2SAT 98
[2023-09-26 11:35] VITALS: BP 163/76; PULSE 66; RESP 16; O2SAT 98
[2023-09-26 11:40] VITALS: BP 138/78; PULSE 78; RESP 16; TEMP 36.8; O2SAT 98
== END 2023-09-26 11:59 | disposition home or self-care (01) ==
PROVIDERS: Family Provider Family Medicine; PCP Family Medicine; Referring Provider Surgery; Visit Provider Surgery
PROC: 0DJD8ZZ Inspection of Lower Intestinal Tract, Via Natural or Artificial Opening Endoscopic (ICD-10-PCS; CPT 45378; principal; 2023-09-26 10:15)
DX: Z12.11 Encounter for screening for malignant neoplasm of colon (principal); K57.30 Diverticulosis of large intestine without perforation or abscess without bleeding; D12.2 Benign neoplasm of ascending colon; Z80.0 Family history of malignant neoplasm of digestive organs
CPT/HCPCS: 45380; J2704

== ENCOUNTER → 2024-01-19 09:48 | Outpatient (CLI) | payer MEDICARE, OTHER, SELFPAY ==
[2022-06-04 09:56] VITALS: BMI 38.2
[2024-01-19 10:38] LABS: Hemoglobin A1C% w Est Avg Glu 6.2 % (4.0-6.0)
[2024-01-19 10:45] LABS: BUN Creatinine Ratio 19.3 (6-22); Blood Urea Nitrogen 16 mg/dL (9-20); Carbon Dioxide 27 mmol/L (22-32); Chloride 108 mmol/L (98-107); Estimated Glomerular Filt Rate > 60 mL/min (>60); Glucose 95 mg/dL (80-110); HEMOLYSIS 18 (0-50); Potassium 4.5 mmol/L (3.4-5.1); Sodium 141 mmol/L (137-145)
[2024-01-19 11:47] LABS: Folate 5.6 ng/mL (2.76-20.0); Vitamin B12 365 pg/mL (239-931)
== END ==
PROVIDERS: Family Provider Family Medicine; PCP Family Medicine; Referring Provider Family Medicine; Visit Provider Family Medicine
DX: G62.9 Polyneuropathy, unspecified (principal)
CPT/HCPCS: 36415; 80048; 82607; 82746; 83036; 84443

== ENCOUNTER 2024-05-02 09:50 | Emergency (ER) | payer MEDICARE, OTHER, SELFPAY ==
[2022-06-04 09:56] VITALS: BMI 38.2
[2024-05-02] VITALS (14 sets, daily range): BP systolic 141–183; BP diastolic 55–91; PULSE 55–109; RESP 11–24; TEMP 36.8; O2SAT 94–98; BMI 34.4
--- NOTE | 2024-05-02 10:57 | ED.GENADULT ---
HPI - General Adult General Chief complaint: Syncope Stated complaint: fall from standing ht w/ possible fainting Time Seen by Provider: 05/02/24 10:56 History of Present Illness HPI narrative: 74-year-old gentleman currently lives alone with his in a memory care facility for approximately a year and a half. History of hyperlipidemia, hypertension, reflux and anxiety. He states he got up to have drink water approximately 2:00 a.m. with standing seeing felt lightheaded and passed out. He landed on the floor with the majority of the impact on the left shoulder, not complaining of head or neck pain. Comes in for further evaluation at this time. Also noting that his right great toe was beginning to hurt. He does not describe recent fevers, cough, chills. There were no palpitations, associated nausea, vomiting. No loss of bowel or bladder. He was quite dizzy and after he came to on the floor was able to crawl back to bed and is feeling better at this time Related Data Home Medications Medication Instructions Recorded Confirmed omeprazole 20 mg tablet,delayed 20 mg PO BEDTIME 12/14/21 01/19/24 release Previous Rx's Medication Instructions Recorded allopurinol 300 mg tablet 300 mg PO DAILY #90 tabs 07/24/23 atorvastatin 80 mg tablet 80 mg PO DAILY #90 tabs 07/24/23 enalapril maleate 20 mg tablet 20 mg PO BEDTIME #90 tabs 07/24/23 metoprolol succinate 25 mg 25 mg PO DAILY #90 tabs 07/24/23 tablet,extended release 24 hr buspirone 5 mg tablet 10 mg (2 x 5 mg) PO BID #180 tabs 01/19/24 Allergies Allergy/AdvReac Type Severity Reaction Status Date / Time No Known Drug Allergies Allergy Verified 01/19/24 09:21 Review of Systems Review of Systems Narrative: Pertinent positive and negative findings as per HPI Patient History Medical History Cerebrovascular accident Depression Diaphoresis Kidney stones (2011) Chicken pox (1954) Mumps (1957) Ankle pain (1963) Gout (2001) Acid reflux Hyperlipidemia Hypertension Obstructive sleep apnea of adult (2007) Snoring Surgical History History of left heart catheterization (LHC) (02/08/14) History of colonoscopy (08/12/12) History of right cataract surgery (08/08/17) Anesthesia History of surgery on arm (1967) Family History Father Cancer Colon cancer [place] (myocardial infarction) Mother Age: 101 Pacemaker Brother Lung cancer Brother Liver cancer Grandfather [place] (myocardial infarction) Grandmother No problems noted. Sister No problems noted. Social History marital status: household members: spouse occupational status: previously employed Smoking Status: Never smoker alcohol intake: current substance use type: does not use Smoking Status: Never smoker alcohol intake frequency: holidays/special occasions only Substance Use Type: does not use Exam Initial Vital Signs Initial Vital Signs: Vital Signs Temperature 98.3 F 05/02/24 10:28 Pulse Rate 55 L 05/02/24 10:28 Respiratory Rate 20 05/02/24 10:28 Blood Pressure 144/91 H 05/02/24 10:28 Pulse Oximetry 98 05/02/24 10:28 Oxygen Delivery Method Room Air 05/02/24 10:28 General: Healthy appearing, in no acute distress. Able to give a complete and coherent history. Well-nourished well-developed HEENT: Moist mucous membranes, normal sclera with reactive pupils, Neck: No JVD, supple, no midline cervical spine tenderness Respiratory: Lungs are clear to auscultation, no wheezing no rales no rhonchi. Full and symmetrical air movement Cardiac: Regular rate and rhythm no murmurs no bruits Abdomen: Soft, nontender, good bowel tones, no flank pain Skin: Warm and dry, no rashes Neurologic: Grossly neurologically intact with no obvious asymmetries or abnormalities Extremities: Left shoulder with mild tenderness with abduction and internal rotation but no obvious abrasions or contusions and he is neurovascularly intact. Right great toe with bruising to the base of the toe. Again, neurovascularly intact Psych: Cooperative, appropriate insight and affect Course Orders Ordered: ED Orders 05/02/24 11:17 XR toe RT min 2V Stat 05/02/24 11:18 CT head/brain wo con Stat EKG-12 Lead Stat 05/02/24 11:29 Complete Blood Count AUTO DIFF Stat Comprehensive Metabolic Panel Stat Troponin I Stat Vital Signs Vital signs: Vital Signs - 8 hr 05/02/24 10:56 05/02/24 11:00 05/02/24 11:30 Pulse Rate 105 H 103 H 104 H Respiratory Rate 20 20 Blood Pressure Pulse Oximetry 96 97 96 Oxygen Delivery Method 05/02/24 11:31 05/02/24 11:31 05/02/24 11:44 Pulse Rate 109 H Respiratory Rate 22 Blood Pressure 179/79 H 183/72 H Pulse Oximetry 96 Oxygen Delivery Method 05/02/24 11:44 05/02/24 12:00 05/02/24 12:00 Pulse Rate 109 H 104 H Respiratory Rate 23 Blood Pressure 159/55 H Pulse Oximetry 94 96 Oxygen Delivery Method 05/02/24 12:30 05/02/24 12:34 05/02/24 12:36 Pulse Rate 99 H 100 H Respiratory Rate 18 20 24 Blood Pressure Pulse Oximetry 95 94 Oxygen Delivery Method 05/02/24 12:51 05/02/24 12:51 05/02/24 12:53 Pulse Rate 101 H 100 H Respiratory Rate 15 18 Blood Pressure 145/77 H 145/77 H Pulse Oximetry 97 97 Oxygen Delivery Method Room Air 05/02/24 13:00 05/02/24 13:01 05/02/24 13:01 Pulse Rate 101 H 101 H Respiratory Rate 11 L 11 L Blood Pressure 141/90 H Pulse Oximetry 96 97 Oxygen Delivery Method Medical Decision Making Lab Data 05/02/24 11:29 05/02/24 11:29 Labs: Lab Results 05/02/24 Range/Units 11:29 WBC 4.6 (4.5-11.0) X10^3/uL RBC 5.19 (4.5-5.9) X10^6/uL Hgb 16.4 (13.5-17.5) g/dL Hct 47.9 (41-53) % MCV 92.2 (80-100) fL MCH 31.5 (26-34) PG MCHC 34.2 (30-36) % RDW 14.6 (11.6-14.8) % Plt Count 131 L (150-400) X10^3/uL Neut % (Auto) 51.6 (50-75) % Lymph % (Auto) 32.2 (25-40) % [place] % (Auto) 15.3 H (3-14) % Eos % (Auto) 0.4 L (2-4) % Baso % (Auto) 0.5 (0-2) % Neut # (Auto) 2400 (5054-2602) /uL Lymph # (Auto) 1500 (8464-9808) /uL [place] # (Auto) 700 (0-900) /uL Eos # (Auto) 0 (0-450) /uL Baso # (Auto) 0 (0-100) /uL Sodium 140 (137-145) mmol/L Potassium 4.0 (3.4-5.1) mmol/L Chloride 104 (98-107) mmol/L Carbon Dioxide 25 (22-32) mmol/L BUN 15 (9-20) mg/dL Creatinine 1.00 (0.66-1.25) mg/dL Estimated GFR > 60 (>60) mL/min BUN/Creatinine Ratio 15.0 (6-22) Glucose 125 H (80-110) mg/dL Calcium 8.8 (8.4-10.2) mg/dL Total Bilirubin 0.8 (0.2-1.3) mg/dL AST 36 (17-59) IU/L ALT 42 (<50) IU/L Alkaline Phosphatase 79 (38-126) U/L Troponin I < 0.012 (0.01-0.034) ng/mL Total Protein 7.7 (6.3-8.2) g/dL Albumin 4.3 (3.5-5.0) g/dL Globulin 3.4 (1.7-4.1) g/dL Albumin/Globulin Ratio 1.3 (1.0-2.8) MDM Narrative Medical decision making narrative: CC: Syncopal episode, pain in the left shoulder right great toe Complicating co-morbidities: Hypertension, hyperlipidemia, anxiety, prior stroke, peripheral neuropathy Data collected from: patient Social determinants of health that may influence the patients condition: Patient lives alone Medical records reviewed: Primary care notes from January of 2024 reviewed Differential considered: Orthostatic hypotension, acute coronary event, acute neurologic event, benign positional vertigo, stumbled over his feet due to his peripheral neuropathy. Patient believes his syncope is secondary to anxiety but was not reporting any anxiety at all of the time Exam documented above, pertinent findings include: Minor contusion to the posterior portion left shoulder. Heart and lungs are benign. Swelling and edema around the base of the great toe in the right. Lab Test results independently reviewed as above. Pertinent findings: CBC is unremarkable Chemistries are reassuring Troponin is nondetectable Independently reviewed EKG: EKG shows sinus tachycardia at 1:02 a.m. with occasional PAC. No acute ischemic changes Imaging studies independently reviewed: X-ray of the toe shows a minimally displaced great toe fracture Head CT shows no acute abnormalities Treatments: He is placed in a hard sole walking shoe for the great toe fracture, we will need orthopedic follow up for definitive treatment Hard sole walking shoe placed for the right foot. Neurovascularly intact pre and posttreatment Discussion: 74-year-old gentleman had a syncopal episode in the middle of the night uncertain etiology. Does not seem to be related to acute coronary syndrome, infection, electrolyte abnormalities, acute kidney injury or stroke. He did hurt his foot with a fall and has a nondisplaced great toe fracture is placed in a hard-soled walking shoe with instructions to follow up with Orthopedic surgery. Heart rate has come down nicely with a L of fluid. Feeling back to baseline at this time there was no indication for additional imaging studies, hospitalization or further workup. Questions are answered he is safe for discharge Discharge Plan Departure Patient Disposition: Home Clinical Impression: Syncope Qualifiers: Syncope type: unspecified Qualified Code(s): R55 - Syncope and collapse Closed fracture of great toe of right foot Qualifiers: Encounter type: initial encounter Phalanx: proximal Fracture alignment: nondisplaced Qualified Code(s): S92.414A - Nondisplaced fracture of proximal phalanx of right great toe, initial encounter for closed fracture Instructions: DI for Syncope in Adults (Fainting), DI for Toe Fracture Activity Restrictions/Additional Instructions: Thank you for coming in today Fortunately, I did not find a life-threatening explanation for why you had this syncopal episode in the middle of the night. There was no evidence of infection, stroke, heart attack or heart attack like symptoms. No electrolyte abnormalities. Your heart rate came down nicely with a bit of fluid so it maybe that you were slightly dehydrated You did break your great toe on your right foot. Please use the hard sole walking shoe that you have been given. You will need follow up with [facility] orthopedic surgery. Please call their office at [phone] to schedule an ER appointment for a great toe fracture, definitive treatment Prescriptions: No Action allopurinol 300 mg tablet 300 mg PO DAILY Qty: 90 3RF atorvastatin 80 mg tablet 80 mg PO DAILY Qty: 90 3RF enalapril maleate 20 mg tablet 20 mg PO BEDTIME Qty: 90 3RF metoprolol succinate 25 mg tablet extended release 24 hr 25 mg PO DAILY Qty: 90 3RF buspirone 5 mg tablet 10 mg PO BID Qty: 180 3RF omeprazole 20 MG tablet,delayed release (DR/EC) 20 mg PO BEDTIME Referrals: Ray Landeros MD [Primary Care Provider] - Stand Alone Forms: Patient Portal/API
--- NOTE | 2024-05-02 11:17 | DI.RAD.S_ITS ---
PROCEDURE: XR TOE RT MIN 2V INDICATIONS: great toe pain after fall TECHNIQUE: 3 views of the right great toe(s) acquired. COMPARISON: [facility], CT, CT HEAD/BRAIN WO CON, 05/02/2024, 11:36. FINDINGS: Bones: There is a minimally displaced fracture seen involving the proximal aspect of the proximal phalanx of the great toe. Age-appropriate bony degenerative changes are seen. Soft tissues: No suspicious soft tissue densities. IMPRESSION: Minimally displaced great toe fracture. Dictated by: Clyde Lopez M.D. on 05/02/2024 at 10:56 Approved by: Clyde Lopez M.D. on 05/02/2024 at 10:57
--- NOTE | 2024-05-02 11:18 | DI.CT.S_ITS ---
PROCEDURE: CT HEAD/BRAIN WO CON INDICATIONS: Syncope, fall TECHNIQUE: Noncontrast 4.5 mm thick angled axial sections acquired from the foramen magnum to the vertex, with coronal and sagittal reformats. For radiation dose reduction, the following was used: automated exposure control, adjustment of mA and/or kV according to patient size. COMPARISON: [facility], MR, MR HEAD/BRAIN WO CON, 06/03/2022, 16:54. [facility], CT, CT HEAD/BRAIN WO CON, 12/14/2021, 13:37. FINDINGS: Image quality: Diagnostic. CSF spaces: Basal cisterns are patent. No extra-axial fluid collections. The ventricles are symmetric in size and shape. Brain: No intracranial bleeds or masses. There is cerebral volume loss for age, with resultant ventricular and sulcal prominence. There are periventricular and deep white matter chronic small vessel ischemic changes. There is intracranial internal carotid artery atherosclerosis. Skull and face: Calvarium and visualized facial bones appear intact, without suspicious lesions. Sinuses: Visualized sinuses and mastoids are clear. IMPRESSION: No acute intracranial hemorrhage is seen. No acute intracranial pathology. Dictated by: Clyde Lopez M.D. on 05/02/2024 at 10:45 Approved by: Clyde Lopez M.D. on 05/02/2024 at 10:46
--- NOTE | 2024-05-02 11:18 | EKG_ITS ---
[place] [address] [place] [id number] Test Date: 2024-05-02 Pat Name: Venkat Soliz Department: [facility] Room: Gender: Male Icu Staff Nurse: RADHA : 1950 Requested By: Order Number: [id number] Reading MD: Robin Adhikari Measurements Intervals [place] Rate: 102 P: 39 NC: 146 QRS: -2 QRSD: 72 T: 30 QT: 370 QTc: 482 Interpretive Statements Sinus tachycardia with frequent premature ventricular complexes Electronically Signed On 05-03-2024 15:26:59 PDT by Robin Adhikari
[2024-05-02 11:34] LABS: Add Manual Diff / Slide Review NO; Basophils Absolute Auto 0 /uL (0-100); Basophils Percent Auto 0.5 % (0-2); Eosinophils Absolute Auto 0 /uL (0-450); Eosinophils Percent Auto 0.4 % (2-4); Hematocrit 47.9 % (41-53); Hemoglobin 16.4 g/dL (13.5-17.5); Lymphocytes Absolute Auto 1500 /uL (1100-4500); Lymphocytes Percent Auto 32.2 % (25-40); Mean Corpuscular HGB Conc 34.2 % (30-36); Mean Corpuscular Hemoglobin 31.5 PG (26-34); Mean Corpuscular Volume 92.2 fL (80-100); Monocytes Absolute Auto 700 /uL (0-900); Monocytes Percent Auto 15.3 % (3-14); Neutrophils Absolute Auto 2400 /uL (1500-7000); Neutrophils Percent Auto 51.6 % (50-75); Platelet Count 131 X10^3/uL (150-400); Red Blood Cell Count 5.19 X10^6/uL (4.5-5.9); Red Cell Distribution Width 14.6 % (11.6-14.8); White Blood Cell Count 4.6 X10^3/uL (4.5-11.0)
[2024-05-02 11:46] LABS: Alanine Aminotransferase 42 IU/L (<50); Albumin 4.3 g/dL (3.5-5.0); Albumin Globulin Ratio 1.3 (1.0-2.8); Alkaline Phosphatase 79 U/L (38-126); Aspartate Aminotransferase 36 IU/L (17-59); Bilirubin Total 0.8 mg/dL (0.2-1.3); Blood Urea Nitrogen 15 mg/dL (9-20); Calcium 8.8 mg/dL (8.4-10.2); Carbon Dioxide 25 mmol/L (22-32); Chloride 104 mmol/L (98-107); Estimated Glomerular Filt Rate > 60 mL/min (>60); Globulin 3.4 g/dL (1.7-4.1); Glucose 125 mg/dL (80-110); HEMOLYSIS 40 (0-50); Sodium 140 mmol/L (137-145); Total Protein 7.7 g/dL (6.3-8.2)
[2024-05-02 11:58] LABS: Troponin I < 0.012 ng/mL (0.01-0.034)
== END 2024-05-02 13:20 | disposition home or self-care (01) ==
PROVIDERS: Emergency Provider Emergency Medicine; Family Provider Family Medicine; PCP Family Medicine
DX: R55 Syncope and collapse (principal); S92.414A Nondisplaced fracture of proximal phalanx of right great toe, initial encounter for closed fracture; S09.90XA Unspecified injury of head, initial encounter; R00.0 Tachycardia, unspecified
CPT/HCPCS: 36415; 70450; 73660; 80053; 84484; 85025; 93005; 99284

== ENCOUNTER 2024-07-01 06:26 | Emergency (ER) | payer MEDICARE, OTHER, SELFPAY ==
[2022-06-04 09:56] VITALS: BMI 38.2
[2024-07-01 06:31] VITALS: BP 131/78; PULSE 69; RESP 18; TEMP 36.1; O2SAT 97; BMI 35.9
--- NOTE | 2024-07-01 06:56 | ED.ANXIETY ---
HPI - Anxiety General Chief Complaint: Anxiety Stated Complaint: anxiety attack, can't sleep 2 days Time Seen by Provider: 07/01/24 06:56 Source: patient Mode of arrival: Ambulatory History of Present Illness HPI narrative: 74-year-old male has had 2 recent seizures of the last couple of weeks during his vacation toward [facility], the 1st of which happened on flight from [facility] to [place], the 2nd was abort a would not boat [place] the [place], he was evaluated at small hospitals, had imaging studies, was either prescribed antiseizure medications or was hoping to be prescribed antiseizure medications, we would like medications to help prevent future seizures until he sees neurologist, awaiting consultation and referral from his PCP Dr. Landeros. He also has had back pain, taking Tylenol and Motrin to help his back spasm problems. He would like something to sleep and something for anxiety. Related Data Home Medications Medication Instructions Recorded Confirmed omeprazole 20 mg tablet,delayed 20 mg PO BEDTIME 12/14/21 01/19/24 release diltiazem HCl 120 mg 120 mg PO DAILY 06/08/24 06/08/24 capsule,extended release 24 hr venlafaxine 150 mg 150 mg PO DAILY 06/08/24 06/08/24 capsule,extended release 24 hr Previous Rx's Medication Instructions Recorded allopurinol 300 mg tablet 300 mg PO DAILY #90 tabs 07/24/23 atorvastatin 80 mg tablet 80 mg PO DAILY #90 tabs 07/24/23 enalapril maleate 20 mg tablet 20 mg PO BEDTIME #90 tabs 07/24/23 metoprolol succinate 25 mg 25 mg PO DAILY #90 tabs 07/24/23 tablet,extended release 24 hr buspirone 5 mg tablet 10 mg (2 x 5 mg) PO BID #180 tabs 01/19/24 cyclobenzaprine 10 mg tablet 10 mg PO TID PRN muscle spasm #30 06/08/24 tabs methylprednisolone 4 mg tablets in See Rx Instructions PO PER PKG DIR 06/08/24 a dose pack (Medrol (Sam)) #21 ea levetiracetam 500 mg tablet 500 mg PO BID #60 tabs 06/17/24 hydroxyzine HCl 50 mg tablet 50 mg PO BEDTIME #30 tabs 07/01/24 levetiracetam 500 mg tablet 500 mg PO BID #60 tabs 07/01/24 (Keppra) Allergies Allergy/AdvReac Type Severity Reaction Status Date / Time No Known Drug Allergies Allergy Verified 06/08/24 10:39 Review of Systems Review of Systems Narrative: See HPI Patient History Medical History Cerebrovascular accident Depression Diaphoresis Kidney stones (2011) Chicken pox (1954) Mumps (1957) Ankle pain (1963) Gout (2001) Acid reflux Hyperlipidemia Hypertension Obstructive sleep apnea of adult (2007) Snoring Surgical History History of left heart catheterization (LHC) (02/08/14) History of colonoscopy (08/12/12) History of right cataract surgery (08/08/17) Anesthesia History of surgery on arm (1966) Family History Father Cancer Colon cancer [place] (myocardial infarction) Mother Age: 101 Pacemaker Brother Lung cancer Brother Liver cancer Grandfather [place] (myocardial infarction) Grandmother No problems noted. Sister No problems noted. Social History marital status: household members: spouse occupational status: previously employed Smoking Status: Never smoker alcohol intake: current substance use type: does not use Smoking Status: Never smoker alcohol intake frequency: holidays/special occasions only Substance Use Type: does not use Exam Narrative Exam Narrative: GENERAL: Well-developed patient, in mild distress. HEAD: Atraumatic. Normocephalic. EYES: Pupils equal round and reactive. Extraocular motions intact. No scleral icterus. No injection or drainage. ENT: Nose without bleeding, purulent drainage. Throat without erythema, tonsillar hypertrophy or exudate. Airway patent. NECK: Trachea midline. Non tender CARDIOVASCULAR: Regular rate and rhythm without murmurs, gallops, or rubs. RESPIRATORY: Clear to auscultation. Breath sounds equal bilaterally. No wheezes, rales, or rhonchi. GASTROINTESTINAL: Abdomen soft, non-tender, nondistended. EXTREMITIES: No edema or joint tenderness. BACK: Nontender without deformity or crepitance. No flank tenderness. No tenderness midline or paraspinous low back region, no rash or skin erythema NEURO: AOx3. Motor functions grossly nonfocal SKIN: No rash or erythema of visible areas Initial Vital Signs Initial Vital Signs: Vital Signs Temperature 97 F L 07/01/24 06:31 Pulse Rate 69 07/01/24 06:31 Respiratory Rate 18 07/01/24 06:31 Blood Pressure 131/78 07/01/24 06:31 Pulse Oximetry 97 07/01/24 06:31 Oxygen Delivery Method Room Air 07/01/24 06:31 Course Vital Signs Vital signs: Vital Signs - 8 hr 07/01/24 06:31 Temperature 97 F L Pulse Rate 69 Respiratory Rate 18 Blood Pressure 131/78 Pulse Oximetry 97 Oxygen Delivery Method Room Air MDM - Anxiety MDM Narrative Medical decision making narrative: 74-year-old male with recent seizure activity x2 while vacationing in [place] area and during travel, states he would like to start antiseizure medication, feels quite anxious that he might have another seizure, though he has not had a 3rd seizures thus far. He is awaiting outpatient consultation with Neurology. He feels that he is having difficulty with sleeping, feels quite anxious about the situation. He would like antianxiety medication, and sleep medications. We discussed starting Keppra for now until he sees Neurology. We discussed consideration for trying hydroxyzine for initiation of sleep and perhaps for some anxiety control for now. We will send these medications electronically to his pharmacy. Follow up with PCP advised. Follow up with Urology advised. Return precautions discussed. Discharge Plan Departure Patient Disposition: Home Clinical Impression: Seizure disorder, Anxiety Activity Restrictions/Additional Instructions: Recent diagnosis 2 seizures during your recent [place] vacation, once during travel in flight, and once aboard [employer] boat along the coast of [place]. You would like to start antiseizure medication, as your afraid you are going to have another seizure, though you have not had a 3rd seizure thus far. You were awaiting neurologist outpatient consultation. You also feel quite anxious that you might have another seizure. You would like antianxiety medication as well. Prescription for Keppra antiseizure medication sent to your pharmacy. Also trial of hydroxyzine antihistamine to help with anxiety and perhaps initiation of sleep. Follow up with your regular provider as planned. Follow up with Neurology as planned. Trial of Keppra, be very careful to monitor for feelings of depression, if you might have a history or tendency toward depression. Other seizure medications besides Keppra might be indicated, follow up with your regular doctor next few days to monitor symptoms on this new medication. Stop medication if it makes you feel like he might be having depression symptoms. Prescriptions: New levetiracetam [Keppra] 500 mg tablet 500 mg PO BID Qty: 60 0RF hydroxyzine HCl 50 mg tablet 50 mg PO BEDTIME Qty: 30 0RF No Action diltiazem HCl 120 mg capsule,extended release 24hr 120 mg PO DAILY venlafaxine 150 mg capsule,extended release 24hr 150 mg PO DAILY methylprednisolone [Medrol (Sam)] 4 mg tablets,dose pack See Rx Instructions PO PER PKG DIR Qty: 21 0RF Rx Instructions: PO PER PKG DIR for 6 days cyclobenzaprine 10 mg tablet 10 mg PO TID PRN (Reason: muscle spasm) Qty: 30 0RF Rx Instructions: Cautioned with operating machinery as medication can cause sedation. allopurinol 300 mg tablet 300 mg PO DAILY Qty: 90 3RF atorvastatin 80 mg tablet 80 mg PO DAILY Qty: 90 3RF enalapril maleate 20 mg tablet 20 mg PO BEDTIME Qty: 90 3RF metoprolol succinate 25 mg tablet extended release 24 hr 25 mg PO DAILY Qty: 90 3RF buspirone 5 mg tablet 10 mg PO BID Qty: 180 3RF levetiracetam 500 mg tablet 500 mg PO BID Qty: 60 3RF omeprazole 20 MG tablet,delayed release (DR/EC) 20 mg PO BEDTIME Referrals: Ray Landeros MD [Primary Care Provider] - Stand Alone Forms: Patient Portal/API
== END 2024-07-01 07:15 | disposition home or self-care (01) ==
PROVIDERS: Emergency Provider Emergency Medicine; Family Provider Family Medicine; PCP Family Medicine
DX: G40.909 Epilepsy, unspecified, not intractable, without status epilepticus (principal); F41.9 Anxiety disorder, unspecified
CPT/HCPCS: 99281

== ENCOUNTER 2024-07-03 07:48 | Emergency (ER) | payer MEDICARE, OTHER, SELFPAY ==
[2022-06-04 09:56] VITALS: BMI 38.2
[2024-07-03] VITALS (24 sets, daily range): BP systolic 120–168; BP diastolic 54–118; PULSE 80–101; RESP 15–54; TEMP 36.7; O2SAT 93–98; BMI 36.7
--- NOTE | 2024-07-03 08:00 | EKG_ITS ---
[address] [address] Test Date: 2024-07-03 Pat Name: Venkat Soliz Department: Room: Gender: Male [employer] Licensee: RADHA : 1950 Requested By: Order Number: [id number] Reading MD: Stefan Gonzales Measurements Intervals [place] Rate: 87 P: 20 IN: 160 QRS: -1 QRSD: 82 T: 55 QT: 372 QTc: 447 Interpretive Statements Sinus rhythm with occasional premature ventricular complexes and fusion complexes Electronically Signed On 07-03-2024 18:11:18 PDT by Stefan Gonzales
--- NOTE | 2024-07-03 08:02 | DI.RAD.S_ITS ---
PROCEDURE: XR CHEST 1V INDICATIONS: tachycardia TECHNIQUE: One view of the chest was acquired. COMPARISON: [facility], CT, CT HEAD/BRAIN WO CON, 07/03/2024, 8:20. [facility], CR, XR CHEST 1V, 06/03/2022, 13:45. FINDINGS: Surgical changes and devices: None. Lungs and pleura: On this semiupright portable chest examination, no large pneumothorax or large pleural effusions are seen. No focal infiltrates are seen. Low lung volumes are noted. This causes a crowded appearance to the lung markings and limits evaluation. Mediastinum: The cardiac contours mildly enlarged. The aorta demonstrates calcification and tortuosity. Bones and chest wall: No suspicious bony lesions. Overlying soft tissues appear unremarkable. IMPRESSION: Mild cardiomegaly. No significant pulmonary abnormality is seen. Dictated by: Clyde Lopez M.D. on 07/03/2024 at 7:44 Approved by: Clyde Lopez M.D. on 07/03/2024 at 7:45
--- NOTE | 2024-07-03 08:02 | DI.CT.S_ITS ---
PROCEDURE: CT HEAD/BRAIN WO CON INDICATIONS: SHORT OF BREATH/ANXIETY TECHNIQUE: Noncontrast 4.5 mm thick angled axial sections acquired from the foramen magnum to the vertex, with coronal and sagittal reformats. For radiation dose reduction, the following was used: automated exposure control, adjustment of mA and/or kV according to patient size. COMPARISON: [facility], CT, CT HEAD/BRAIN WO CON, 12/14/2021, 13:37. [facility], CR, XR CHEST 1V, 07/03/2024, 8:16. [facility], CT, CT HEAD/BRAIN WO CON, 05/02/2024, 11:36. (Additional prior imaging is not available for review from the archive at the time of this dictation.) FINDINGS: Image quality: Diagnostic. CSF spaces: Basal cisterns are patent. No extra-axial fluid collections. The ventricles are symmetric in size and shape. Brain: No intracranial bleeds or masses. There is cerebral volume loss for age, with resultant ventricular and sulcal prominence. There are periventricular and deep white matter chronic small vessel ischemic changes. There is intracranial internal carotid artery atherosclerosis. Skull and face: Calvarium and visualized facial bones appear intact, without suspicious lesions. Sinuses: Visualized sinuses and mastoids are clear. IMPRESSION: No acute intracranial pathology. Stable from prior. Dictated by: Clyde Lopez M.D. on 07/03/2024 at 7:45 Approved by: Clyde Lopez M.D. on 07/03/2024 at 7:47
--- NOTE | 2024-07-03 08:06 | ED.ARRPALP ---
HPI - Arrhythmia/Palpitations General Chief Complaint: Arrhythmia/Palpitations Stated Complaint: SOB, Anxiety Time Seen by Provider: 07/03/24 07:50 Source: patient and EMS Mode of arrival: EMS History of Present Illness HPI narrative: 74-year-old gentleman with a history of hyperlipidemia, hypertension, reflux, depression, diagnosed with anxiety attacks and panic disorder however given events of today I am wondering if he is having episodes of SVT or atrial fibrillation. He was awakened this morning at 4:00 a.m. with 1 of his usual ?anxiety attacks?. He describes shortness of breath significant chest tightness and medics were called. On arrival he had a heart rate almost 2-20 that looked like an SVT. Vagal maneuvers were performed and his rate dropped into the 110 range with rhythm strip looking like atrial fibrillation. Patient did not have a sensation of palpitations. On arrival in the emergency department he appears to be in sinus rhythm with PVCs and occasional PACs. He notes over the last number of weeks he has been having more ?anxiety attacks. He all of a sudden becomes significantly short of breath overall anxious, twice a sit down calm himself and these attacks will last anywhere from 20 minutes to 3 hours. They have been happening up to 2 times a day. He was traveling on the [place] earlier this month and had a syncopal episode on an airplane. Was evaluated in an outside hospital and was felt to be safe to continue his vacation. He had another syncopal episode while on the sailboat that he was using and was again evaluated. There were reports of left-sided tonic-clonic movement upper and lower extremities and conclusion was that he was having seizures. He does not report having any head imaging done but records are not available. With the 2nd event he was started on Keppra. Recently saw his primary care physician and both neurology and Cardiology consults are pending. He has not anticoagulated Related Data Home Medications Medication Instructions Recorded Confirmed omeprazole 20 mg tablet,delayed 20 mg PO BEDTIME 12/14/21 01/19/24 release diltiazem HCl 120 mg 120 mg PO DAILY 06/08/24 06/08/24 capsule,extended release 24 hr venlafaxine 150 mg 150 mg PO DAILY 06/08/24 06/08/24 capsule,extended release 24 hr Previous Rx's Medication Instructions Recorded allopurinol 300 mg tablet 300 mg PO DAILY #90 tabs 07/24/23 atorvastatin 80 mg tablet 80 mg PO DAILY #90 tabs 07/24/23 enalapril maleate 20 mg tablet 20 mg PO BEDTIME #90 tabs 07/24/23 metoprolol succinate 25 mg 25 mg PO DAILY #90 tabs 07/24/23 tablet,extended release 24 hr buspirone 5 mg tablet 10 mg (2 x 5 mg) PO BID #180 tabs 01/19/24 cyclobenzaprine 10 mg tablet 10 mg PO TID PRN muscle spasm #30 06/08/24 tabs methylprednisolone 4 mg tablets in See Rx Instructions PO PER PKG DIR 06/08/24 a dose pack (Medrol (Sam)) #21 ea levetiracetam 500 mg tablet 500 mg PO BID #60 tabs 06/17/24 hydroxyzine HCl 50 mg tablet 50 mg PO BEDTIME #30 tabs 07/01/24 levetiracetam 500 mg tablet 500 mg PO BID #60 tabs 07/01/24 (Keppra) diltiazem HCl 360 mg capsule,24 360 mg PO DAILY #30 caps 07/03/24 hr,extended release Allergies Allergy/AdvReac Type Severity Reaction Status Date / Time No Known Drug Allergies Allergy Verified 06/08/24 10:39 Review of Systems Constitutional Comments: General: Healthy appearing, in no acute distress. Able to give a complete and coherent history. Well-nourished well-developed HEENT: Moist mucous membranes, normal sclera with reactive pupils, Neck: No JVD, supple Respiratory: Lungs are clear to auscultation, no wheezing no rales no rhonchi. Full and symmetrical air movement Cardiac: Irregular, no murmurs appreciated Abdomen: Soft, nontender, good bowel tones, no flank pain Skin: Warm and dry, no rashes Neurologic: Grossly neurologically intact with no obvious asymmetries or abnormalities. He has not hyper reflexive. GCS of 15 Extremities: No trauma, well perfused, chronic venous stasis changes, bilateral 1+ lower extremity edema Psych: Cooperative, appropriate insight and affect Patient History Medical History Cerebrovascular accident Depression Diaphoresis Kidney stones (2011) Chicken pox (5) Mumps (8) Ankle pain (1964) Gout (2002) Acid reflux Hyperlipidemia Hypertension Obstructive sleep apnea of adult (2007) Snoring Surgical History History of left heart catheterization (LHC) (02/08/14) History of colonoscopy (08/12/12) History of right cataract surgery (08/08/17) Anesthesia History of surgery on arm (1966) Family History Father Cancer Colon cancer [place] (myocardial infarction) Mother Age: 101 Pacemaker Brother Lung cancer Brother Liver cancer Grandfather [place] (myocardial infarction) Grandmother No problems noted. Sister No problems noted. Social History marital status: household members: spouse occupational status: previously employed Smoking Status: Never smoker alcohol intake: current substance use type: does not use Smoking Status: Never smoker alcohol intake frequency: holidays/special occasions only Substance Use Type: marijuana Exam Initial Vital Signs Initial Vital Signs: Vital Signs Temperature 98.1 F 07/03/24 07:52 Pulse Rate 96 H 07/03/24 07:52 Respiratory Rate 20 07/03/24 07:52 Blood Pressure 141/72 H 07/03/24 07:52 Pulse Oximetry 97 07/03/24 07:52 Oxygen Delivery Method Room Air 07/03/24 07:52 General: Healthy appearing, in no acute distress. Able to give a complete and coherent history. Well-nourished well-developed HEENT: Moist mucous membranes, normal sclera with reactive pupils, Neck: No JVD, supple Respiratory: Lungs are clear to auscultation, no wheezing no rales no rhonchi. Full and symmetrical air movement Cardiac: Regular rate and rhythm no murmurs no bruits Abdomen: Soft, nontender, good bowel tones, no flank pain Skin: Warm and dry, no rashes Neurologic: Grossly neurologically intact with no obvious asymmetries or abnormalities Extremities: No trauma, 1+ bilateral lower extremity edema, chronic venous stasis changes Psych: Cooperative, appropriate insight and affect Course Orders Ordered: ED Orders 07/03/24 07:30 Complete Blood Count AUTO DIFF Stat Comprehensive Metabolic Panel Stat D Dimer Stat Magnesium Stat NT-proBNP (BNP-Adult 18+) Stat Troponin I Stat 07/03/24 08:02 CT head/brain wo con Stat XR chest 1V Stat EKG-12 Lead Stat 07/03/24 09:26 Urinalysis and Microscopic Stat Urine Culture Stat 07/03/24 09:28 Troponin I Stat 07/03/24 10:22 EC echo doppler complete Stat Discontinued Medications Diltiazem HCl (Diltiazem Cd 120 Mg Cap) 240 mg PO NOW ONE Stop: 07/03/24 09:39 Last Admin: 07/03/24 09:44 Dose: 240 mg Documented By: IDALIA Furosemide (Furosemide 40 Mg/4 Ml Vial) 20 mg IV NOW ONE Stop: 07/03/24 10:33 Last Admin: 07/03/24 10:44 Dose: 20 mg Documented By: WILBER Metoprolol Succinate (Metoprolol Er 25 Mg Tablet) 25 mg PO NOW ONE Stop: 07/03/24 09:39 Last Admin: 07/03/24 09:44 Dose: 25 mg Documented By: IDALIA Vital Signs Vital signs: Vital Signs - 8 hr 07/03/24 07:52 07/03/24 07:54 07/03/24 07:55 Temperature 98.1 F Pulse Rate 96 H 97 H Respiratory Rate 20 25 H Blood Pressure 141/72 H 141/72 H Pulse Oximetry 97 97 Oxygen Delivery Method Room Air 07/03/24 07:55 07/03/24 08:00 07/03/24 08:03 Temperature Pulse Rate 96 H 89 94 H Respiratory Rate 29 H 16 40 H Blood Pressure Pulse Oximetry 98 97 96 Oxygen Delivery Method 07/03/24 08:03 07/03/24 08:30 07/03/24 08:32 Temperature Pulse Rate 100 H 99 H Respiratory Rate 20 Blood Pressure 152/84 H Pulse Oximetry 95 93 Oxygen Delivery Method 07/03/24 08:32 07/03/24 09:00 07/03/24 09:00 Temperature Pulse Rate 99 H Respiratory Rate 16 Blood Pressure 156/118 H 164/78 H Pulse Oximetry 95 Oxygen Delivery Method 07/03/24 09:30 07/03/24 09:30 07/03/24 09:44 Temperature Pulse Rate 100 H 100 H Respiratory Rate 21 Blood Pressure 168/89 H 168/79 H Pulse Oximetry 96 Oxygen Delivery Method 07/03/24 10:00 07/03/24 10:03 07/03/24 10:03 Temperature Pulse Rate 101 H 95 H Respiratory Rate 22 22 Blood Pressure 150/78 H Pulse Oximetry 94 94 Oxygen Delivery Method 07/03/24 10:30 07/03/24 10:30 07/03/24 10:30 Temperature Pulse Rate 91 H 86 Respiratory Rate 19 Blood Pressure 131/89 131/89 Pulse Oximetry 96 Oxygen Delivery Method 07/03/24 11:00 07/03/24 11:01 07/03/24 11:01 Temperature Pulse Rate 80 81 Respiratory Rate 15 21 Blood Pressure 120/54 L Pulse Oximetry 94 95 Oxygen Delivery Method 07/03/24 11:30 07/03/24 11:30 07/03/24 12:00 Temperature Pulse Rate 84 88 Respiratory Rate 21 22 Blood Pressure 134/82 Pulse Oximetry 96 94 Oxygen Delivery Method 07/03/24 12:00 07/03/24 12:30 07/03/24 12:30 Temperature Pulse Rate 95 H Respiratory Rate 27 H Blood Pressure 134/95 H 138/89 Pulse Oximetry 93 Oxygen Delivery Method 07/03/24 13:00 07/03/24 13:00 07/03/24 13:30 Temperature Pulse Rate 92 H 86 Respiratory Rate 24 24 Blood Pressure 154/109 H Pulse Oximetry 96 96 Oxygen Delivery Method 07/03/24 14:00 07/03/24 14:00 07/03/24 14:30 Temperature Pulse Rate 84 83 Respiratory Rate 22 37 H Blood Pressure 135/73 Pulse Oximetry 95 95 Oxygen Delivery Method 07/03/24 14:31 07/03/24 14:31 Temperature Pulse Rate 85 Respiratory Rate 54 H Blood Pressure 133/75 Pulse Oximetry 94 Oxygen Delivery Method MDM - Arrhythmia/Palpitations Lab Data 07/03/24 07:30 07/03/24 07:30 Labs: Lab Results 07/03/24 07/03/24 07/03/24 Range/Units 07:30 09:26 09:28 WBC 6.4 (4.5-11.0) X10^3/uL RBC 5.38 (4.5-5.9) X10^6/uL Hgb 16.8 (13.5-17.5) g/dL Hct 49.9 (41-53) % MCV 92.9 (80-100) fL MCH 31.3 (26-34) PG MCHC 33.7 (30-36) % RDW 14.8 (11.6-14.8) % Plt Count 179 (150-400) X10^3/uL Neut % (Auto) 44.9 L (50-75) % Lymph % (Auto) 37.2 (25-40) % [place] % (Auto) 15.2 H (3-14) % Eos % (Auto) 1.7 L (2-4) % Baso % (Auto) 1.0 (0-2) % Neut # (Auto) 2900 (3649-9321) /uL Lymph # (Auto) 2400 (4466-9066) /uL [place] # (Auto) 1000 H (0-900) /uL Eos # (Auto) 100 (0-450) /uL Baso # (Auto) 100 (0-100) /uL D-Dimer 654 H (<500) ng/ml Sodium 141 (137-145) mmol/L Potassium 3.6 (3.4-5.1) mmol/L Chloride 107 (98-107) mmol/L Carbon Dioxide 20 L (22-32) mmol/L BUN 14 (9-20) mg/dL Creatinine 0.94 (0.66-1.25) mg/dL Estimated GFR > 60 (>60) mL/min BUN/Creatinine Ratio 14.9 (6-22) Glucose 118 H (80-110) mg/dL Calcium 10.0 (8.4-10.2) mg/dL Magnesium 1.5 L (1.6-2.3) mg/dL Total Bilirubin 0.9 (0.2-1.3) mg/dL AST 33 (17-59) IU/L ALT 38 (<50) IU/L Alkaline Phosphatase 123 (38-126) U/L Troponin I 0.025 0.016 (0.01-0.034) ng/mL NT-Pro-B Natriuret Pep 891 H (<450) pg/mL Total Protein 8.7 H (6.3-8.2) g/dL Albumin 5.0 (3.5-5.0) g/dL Globulin 3.7 (1.7-4.1) g/dL Albumin/Globulin Ratio 1.4 (1.0-2.8) Urine Color Yellow Urine Appearance Clear Urine pH 5.5 (4.5-8.0) Ur Specific [place] 1.025 (1.000-1.035) Urine Protein Trace H (Negative) Urine Glucose (UA) Negative (Negative) g/dL Urine Ketones Negative (NEGATIVE) Urine Occult Blood Negative (Negative) Urine Nitrate Positive H (Negative) Urine Bilirubin Negative (NEGATIVE) Urine Urobilinogen 1.0 (0.2) E.U./dL Ur Leukocyte Esterase 1+ H (NEGATIVE) Urine RBC None seen (0-5/HPF) Urine WBC 5-10/hpf H (0-5/HPF) Ur Squamous Epith Cells 0-1 /hpf (0-5/HPF) Amorphous Sediment 1+ Urine Bacteria Many (>30) H (None) Ur Culture Indicated? Specimen cultured Vol Urine Centrifuged 10ml (spun) MDM Narrative Medical decision making narrative: CC: The woken from sleep at 4:00 a.m. with acute dyspnea Complicating co-morbidities: Hypertension, depression, 2 syncopal episodes earlier this month with seizure-like activity appreciated currently on Keppra waiting further evaluation. Data collected from: patient Medical records reviewed: Hospital admission with brain MRI December of 2021 is reviewed. Small subacute infarct with subsequent right foot drag. May of 2022 had an episode of transient global amnesia with MRI unremarkable at that time. June of 2022 he did have a Zio patch that showed nonsustained brief runs of ventricular tachycardia, brief runs of SVT Family practice visit December 17, 2022 4 ?anxiety attack? that awoke him from sleep with an episode of ?blacking out?. Triazolam for sleep was discontinued BuSpar for anxiety was added ER visit May 02 for a fall secondary to syncopal episode, normal telemetry, head CT and minor orthopedic injuries Primary care note June 17 after the syncopal episodes, cardiology and Neurology consultations recommended ER visit July 01 states that he continues to awake at night feeling anxious in his having difficulty sleep Differential considered: Recurrent arrhythmias causing sleeplessness and anxiety including SVT, atrial fibrillation, ventricular tachycardia. Congestive heart failure, acute coronary syndrome, seizure, stroke Exam documented above, pertinent findings include: By the time patient has been evaluated in the ER with vagal maneuvers, 15 mg of IV diltiazem he has converted back to sinus rhythm Lab Test results independently reviewed as above. Pertinent findings: CBC is reassuring no anemia no leukocytosis Chemistries are reassuring, magnesium slightly low at 1.5. BNP minimally elevated at 891 Thyroid studies done in January of 2024 are unremarkable D-dimer is 654 which is appropriate for age correction, do not suspect pulmonary embolism Initial troponin and repeat troponin at 2hours are not elevated Independently reviewed EKG: Medic strip: initia SVT rate 210 Repeat medic EKG A fib at 126 EKG in ED Sinus rhythm at a rate of 87 with PVCs and PACs. No ischemic changes Imaging studies independently reviewed: Chest x-ray shows no pathology with normal cardiac silhouette and no suggestion congestive heart failure CT scan of the head done with concerns for stroke/intracranial hemorrhage is unremarkable Consultations: Discussed with Dr. Cruz, cardiology. Given the fact that the patient currently is asymptomatic for remains in sinus rhythm recommended giving him his usual morning metoprolol, doubling his usual daily diltiazem and checking an echocardiogram. If the echocardiogram shows no significant abnormalities than we will plan for expedited outpatient cardiac follow up and if significant abnormalities are appreciated on the echo patient will need hospital admission. Treatments: Vagal maneuvers and 50 mg of IV diltiazem given via medics prior to arrival Re-evaluations: 945 patient updated on findings, concerns, medications added and echocardiogram pending. Questions answered Discussion: 74-year-old gentleman awoken from sleep 4:00 a.m. with his ?anxiety attack?. He was in SVT at a rate of 110, with vagal maneuvers converted to sinus rhythm in the 110 range. With diltiazem rate slowed and he is spontaneously converted to sinus rhythm at a rate of 87. In reviewing history of the last month he has had multiple syncopal episodes presumed to be seizures recently started on Keppra, increasing ?anxiety attacks? as frequently as twice a day lasting from 20 minutes to 3 hours. He did have a Zio patch in 2021 that showed episodes of brief SVT, atrial fibrillation and ventricular tachycardia. Patient is not currently anticoagulated. No clinical evidence of congestive heart failure however I suspect the episodes of various types of tachycardia are contributing to slightly elevated BNP . Magnesium is slightly low we will give him a dose of IV magnesium. No sign of acute coronary syndrome, currently on both metoprolol succinate 25 daily and diltiazem extended release 120 mg daily, enalapril. 245pm case is discussed with Dr. Cruz, lan engineer. Echocardiogram shows no dramatic abnormalities, ejection fraction is 50 55%. Valves are okay. He was last seen by cardiology greater than 3 years ago. He had a cardiac catheterization in 2020 with no severe disease. In the interval with the addition of diltiazem and metoprolol his rate and rhythm have stabilized. Blood pressure currently is 130/80. Discussed again with lan engineer and together we agreed that discharge home would be safe and appropriate which makes the patient quite tachy. Because his blood pressure remains slightly elevated and there is room to add additional medications will give him a prescription for diltiazem 360 mg to begin tomorrow. We will ask him to take another of his 120 mg this evening for a total of 360 mg today. We will continue metoprolol at 25 mg, succinate form. We will ask the patient to contact [facility] cardiology on Friday to schedule follow up appointment with the lan engineer. If he has additional ?anxiety episodes, did ask him to call 911 so they can at least do an EKG/rhythm strip and help him decide if he needs to return to the emergency department. I suspect volume overload appreciated with a slightly elevated BNP was because of the recurrent episodes of tachycardia. He has voided almost a L of fluid with the Lasix given in the emergency department. Given the reassuring echocardiogram today. He does not need additional Lasix at home currently. He is safe for discharge at this time Critical Care Time Critical Care Time Critical Care Time: Yes Total Critical Care Time: 33 Attestation: Critical care time is separate from other billable procedures. There is a high probability of a significant, sudden or life-threatening deterioration that requires my full and direct attention, intervention and personal management. This critical care time includes consultation with family and other consulting doctors, review of records, and interpretation of data from labs, EKGs and imaging as well as managements of cardiac arrhythmia Discharge Plan Departure Patient Disposition: Home Clinical Impression: Supraventricular tachycardia, Paroxysmal A-fib, Elevated brain natriuretic peptide (BNP) level Instructions: DI for Arrhythmias, DI for Paroxysmal Supraventricular Tachycardia Activity Restrictions/Additional Instructions: Thank you for coming in today The medics were able to catch the abnormal rhythm that I believe has been causing your problems I suspect you have been having episodes of prolonged supraventricular tachycardia intermixed with atrial fibrillation. In the emergency department today you are given a dose of Lasix and you have had a significant urine output. We do not need to continue this at home The echocardiogram that was done in the emergency department does not show significant heart failure or structural abnormalities. In talking with the lan engineer, recommendations are to change your diltiazem dose. 1. Tonight, I want you to take an extra diltiazem 120 mg this is the medication you have at home. 2. I am giving you a new prescription for diltiazem 360 mg. Please pick this prescription up tomorrow however, tomorrow morning take 3 of the diltiazem 120 mg pills. 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 A new prescription is sent to [facility] 3. On Friday you need to call [facility] cardiology at [phone]. Explain that you are in the emergency room with abnormally fast heart rate. The ER doctor spoke with Dr. Cruz and you need to be seen within the week. 4. Regarding the possibility of seizures. I suspect that the episodes that you had while visiting the [facility] were in fact related to your heart going too fast rather than being seizures. The CT scan of your head that we did today was quite reassuring. I am going to suggest that you stop the Keppra, this is the new seizure medication that was recently started Please do continue all of your other prescription medications If you have another episode of your ?anxiety attack?, please call 911 so that they can getting EKG immediately and we can see what your heart is doing. This was the piece that made the diagnosis today possible If you are having new or different symptoms please do return to the ER Prescriptions: New diltiazem HCl 360 mg capsule,extended release 24 hr 360 mg PO DAILY Qty: 30 0RF Rx Instructions: make sure the diltiazem 120 mg is discontinued No Action diltiazem HCl 120 mg capsule,extended release 24hr 120 mg PO DAILY venlafaxine 150 mg capsule,extended release 24hr 150 mg PO DAILY methylprednisolone [Medrol (Sam)] 4 mg tablets,dose pack See Rx Instructions PO PER PKG DIR Qty: 21 0RF Rx Instructions: PO PER PKG DIR for 6 days cyclobenzaprine 10 mg tablet 10 mg PO TID PRN (Reason: muscle spasm) Qty: 30 0RF Rx Instructions: Cautioned with operating machinery as medication can cause sedation. allopurinol 300 mg tablet 300 mg PO DAILY Qty: 90 3RF atorvastatin 80 mg tablet 80 mg PO DAILY Qty: 90 3RF enalapril maleate 20 mg tablet 20 mg PO BEDTIME Qty: 90 3RF metoprolol succinate 25 mg tablet extended release 24 hr 25 mg PO DAILY Qty: 90 3RF buspirone 5 mg tablet 10 mg PO BID Qty: 180 3RF levetiracetam 500 mg tablet 500 mg PO BID Qty: 60 3RF levetiracetam [Keppra] 500 mg tablet 500 mg PO BID Qty: 60 0RF hydroxyzine HCl 50 mg tablet 50 mg PO BEDTIME Qty: 30 0RF omeprazole 20 MG tablet,delayed release (DR/EC) 20 mg PO BEDTIME Referrals: Ray Landeros MD [Primary Care Provider] - Stand Alone Forms: Patient Portal/API
[2024-07-03 08:09] LABS: Add Manual Diff / Slide Review NO; Basophils Absolute Auto 100 /uL (0-100); Eosinophils Absolute Auto 100 /uL (0-450); Eosinophils Percent Auto 1.7 % (2-4); Hematocrit 49.9 % (41-53); Hemoglobin 16.8 g/dL (13.5-17.5); Lymphocytes Absolute Auto 2400 /uL (1100-4500); Lymphocytes Percent Auto 37.2 % (25-40); Mean Corpuscular HGB Conc 33.7 % (30-36); Mean Corpuscular Hemoglobin 31.3 PG (26-34); Mean Corpuscular Volume 92.9 fL (80-100); Monocytes Absolute Auto 1000 /uL (0-900); Monocytes Percent Auto 15.2 % (3-14); Neutrophils Absolute Auto 2900 /uL (1500-7000); Neutrophils Percent Auto 44.9 % (50-75); Platelet Count 179 X10^3/uL (150-400); Red Blood Cell Count 5.38 X10^6/uL (4.5-5.9); Red Cell Distribution Width 14.8 % (11.6-14.8); White Blood Cell Count 6.4 X10^3/uL (4.5-11.0)
[2024-07-03 08:14] LABS: D Dimer 654 ng/ml (<500)
[2024-07-03 08:18] LABS: Alanine Aminotransferase 38 IU/L (<50); Albumin Globulin Ratio 1.4 (1.0-2.8); Alkaline Phosphatase 123 U/L (38-126); Aspartate Aminotransferase 33 IU/L (17-59); BUN Creatinine Ratio 14.9 (6-22); Bilirubin Total 0.9 mg/dL (0.2-1.3); Blood Urea Nitrogen 14 mg/dL (9-20); Carbon Dioxide 20 mmol/L (22-32); Chloride 107 mmol/L (98-107); Estimated Glomerular Filt Rate > 60 mL/min (>60); Globulin 3.7 g/dL (1.7-4.1); Glucose 118 mg/dL (80-110); HEMOLYSIS 21 (0-50); Magnesium 1.5 mg/dL (1.6-2.3); Potassium 3.6 mmol/L (3.4-5.1); Sodium 141 mmol/L (137-145); Total Protein 8.7 g/dL (6.3-8.2)
[2024-07-03 08:30] LABS: NT-proBNP (BNP-Adult 18+) 891 pg/mL (<450); Troponin I 0.025 ng/mL (0.01-0.034)
--- NOTE | 2024-07-03 09:15 | PC.NURSE ---
Addendum entered by Pacheco Alicea CNA 07/03/24 09:35: Cardiology returned page @[phone]. Original Note: Paged cardiology Dr. Cruz @[phone]. No response from Dr. Cruz called listed cellphone @[phone] and left voicemail.
[2024-07-03 09:36] LABS: Appearance Urine UA CLEAR; Bilirubin Urine UA NEGATIVE (NEGATIVE); Color Urine UA YELLOW; Glucose Urine UA NEGATIVE (Negative); Ketones Urine UA NEGATIVE (NEGATIVE); Leukocyte Esterase Urine UA 1+ (NEGATIVE); Nitrite Urine UA POSITIVE (Negative); Occult Blood Urine UA NEGATIVE (Negative); Protein Urine UA TRACE (Negative); Specific Gravity Urine UA 1.025 (1.000-1.035); pH Urine UA 5.5 (4.5-8.0)
[2024-07-03] MEDS: METOPROLOL ER 25 MG TABLET PO (09:44)
[2024-07-03] MEDS: dilTIAZem CD 120 MG CAP 240 MG PO (09:44)
[2024-07-03 09:46] LABS: Urine Volume 10mL (spun)
[2024-07-03 09:47] LABS: Amorphous Sediment Urine 1+; Bacteria Urine Many (>30); Culture Indicated Urine Specimen Cultured; RBC Urine None Seen (0-5/HPF); Squamous Epithelial Cell Urine 0-1 /HPF (0-5/HPF); WBC Urine 5-10/HPF (0-5/HPF)
[2024-07-03 09:59] LABS: Troponin I 0.016 ng/mL (0.01-0.034)
--- NOTE | 2024-07-03 10:22 | DI.ECHO.S_ITS ---
[facility] : : [address] : : [place] : : [id number] : : Phone: [phone] Echocardiogram Report + + :Name: DA BARILLAS Study Date: 07/03/2024 Height: 70 in : :[facility] ReadingLocation: Weight: 256 lb : : Gender: Male BSA: 2.3 m2 : :: 1950 Age: 74 yrs BP: 131/89 mmHg: :Reason For Study: MULTIPLE TACHY ARRYTHMIAS : :Ordering Physician: ERIC, : :DMITRI Perdomo Performed By: Rosa Andrew : :Referring: DMITRI REYES : + + Interpretation Summary 1) Normal left ventricular thickness and size with low normal systolic function (EF 50-55%). 2) Normal right ventricular size with mildly reduced function. 3) No significant valvular abnormalities. 4) Compared to the Echo done 12/15/2021, LVEF has decreased from 60-65% to 50- 55% on this study. Procedure: A two-dimensional transthoracic echocardiogram with color flow and Doppler was performed. The study quality was technically adequate. Comparison is made with the echocardiogram of 12/15/2021. Short segment of bigeminy noted. The patient had occasional PVCs during the exam. The heart rate ranged between 72-94 bpm during the study. Left Ventricle: The left ventricle is normal in size. There is mild concentric left ventricular hypertrophy. The ejection fraction is estimated to be 50-55%. There are no focal wall motion abnormalities. Right Ventricle: The right ventricle is normal size. Right ventricular systolic function is mildly reduced. Atria: The left atrial size is normal. Right atrial size is normal. There is no Doppler evidence for an interatrial shunt. Mitral Valve: The mitral valve leaflets appear mildly thickened, but open well. There is mild mitral annular calcification. The mitral valve leaflets are mildly calcified. There is trace mitral regurgitation. Aortic Valve: The aortic valve is trileaflet. The aortic valve opens well. There is no aortic valve stenosis. No aortic regurgitation is present. Tricuspid Valve: The tricuspid valve is normal. There is mild tricuspid regurgitation. The right ventricular systolic pressure is estimated to be at least 27 mmHg based on an estimated right atrial pressure of 3 mm Hg. Pulmonic Valve: The pulmonic valve leaflets are thin and pliable; valve motion is normal. There is mild pulmonic regurgitation. Great Vessels: The aortic root is normal size. The ascending aorta is at the upper limits of normal in size. The IVC is of normal diameter and collapses greater than 50% with a sniff. This suggests a low right atrial pressure of 3 mm Hg. Pericardium/ Pleura There is no pericardial effusion. There is no pleural effusion. MMode/2D Measurements & Calculations LVIDd: 4.8 cm LVOT diam: 2.1 cm LVIDs: 3.8 cm Ao root diam: 3.6 cm FS: 21.5 % asc Aorta Diam: 3.8 cm EPSS: 1.3 cm Ao Arch Diam (Prox Trans): 3.4 cm IVSd: 1.3 cm LVPWd: 1.1 cm LV light. diameter/BSA (cm/m^2): 2.1 LV sys. diameter/BSA (cm/m^2): 1.6 LA A2 area: 19.7 cm2 RA long axis: 5.0 cm LA A4 area: 17.1 cm2 RA area: 16.0 cm2 LA length (vol): 5.2 cm RA vol: 43.6 ml LA vol: 54.7 ml RA : 18.8 ml/m2 LA vol index: 23.6 ml/m2 IVC diam: 1.4 cm RVD1 (basal): 3.8 cm RVD2 (mid): 3.3 cm TAPSE: 1.5 cm Doppler Measurements & Calculations Ao V2 max: 124.9 cm/sec LVOT Max Wayne: 91.3 cm/sec Ao V2 mean: 90.7 cm/sec LV V1 max P.3 mmHg Ao max P.2 mmHg LV V1 VTI: 18.9 cm Ao mean P.7 mmHg DEDE(I,D): 2.7 cm2 Ao V2 VTI: 23.4 cm DEDE(V,D): 2.4 cm2 sev ratio: 0.81 DEDE indexed to BSA (cm^2/m^2): 1.2 MV E max wayne: 65.8 cm/sec TR max wayne: 244.3 cm/sec MV A max wayne: 112.0 cm/sec TR max P.9 mmHg MV E/A: 0.59 PA V2 max: 90.7 cm/sec Lat Peak E' Wayne: 2.3 cm/sec PA V2 mean: 67.1 cm/sec E/E' lat: 28.4 PA mean P.9 mmHg MV dec time: 0.24 sec PA pr(Accel): 41.7 mmHg SVLVOT): 62.9 ml Reading Physician:12:27 PM
[2024-07-03] MEDS: FUROSEMIDE 40 MG/4 ML VIAL 20 MG IV (10:44)
== END 2024-07-03 15:26 | disposition home or self-care (01) ==
PROVIDERS: Emergency Provider Emergency Medicine; Family Provider Family Medicine; PCP Family Medicine
DX: I48.0 Paroxysmal atrial fibrillation (principal); Z79.01 Long term (current) use of anticoagulants; I47.10 Supraventricular tachycardia, unspecified; R79.89 Other specified abnormal findings of blood chemistry; E78.5 Hyperlipidemia, unspecified; I10 Essential (primary) hypertension; F41.9 Anxiety disorder, unspecified
CPT/HCPCS: 70450; 71045; 80053; 81001; 83735; 83880; 84484; 85025; 85379; 87077; 87086; 87186; 93005; 93306; 96374; 99284; 99285; J1940

== ENCOUNTER → 2024-08-16 09:36 | Outpatient (CLI) | payer MEDICARE, OTHER, SELFPAY ==
[2024-07-06 15:10] VITALS: BMI 38.2
--- NOTE | 2024-08-16 09:38 | DI.NM.S_ITS ---
PROCEDURE: NM CECILIA PERF SPECT R&S PHARM Rest and pharmacological stress myocardial perfusion SPECT with gated imaging and ejection fraction RADIOPHARMACEUTICAL: 26.8 mCi Tc-99m tetrafosmin IV at rest and 25.0 mCi Tc-99m tetrafosmin IV at peak effect of pharmacological stress. [id number] was performed. INDICATIONS: SYNCOPE AND COLLAPSE / PVC TECHNIQUE: Radiopharmaceutical was injected at peak stress test, and also at rest. SPECT images were obtained. SPECT myocardial perfusion images were displayed in short axis, horizontal long axis, and vertical long axis views. Gated images were reviewed using Tipjoy software. COMPARISON: None. CARDIAC STRESS: A pharmacologic stress test was performed under the supervision of an attending staff, using an infusion of lexiscan 0.4mg IV X1. Hemodynamic data: There is normal blood pressure and heart rate response to pharmacologic stress. Symptoms: The patient denied anginal chest pain. Aminophylline: none EKG: No diagnostic changes of ischemia; no ectopy. FINDINGS: Raw data: There is good myocardial uptake of radiotracer. No significant motion artifacts. Left ventricle function: Gated images demonstrate normal left ventricular wall thickening. No segmental wall motion abnormalities. No ischemic dilation; TID is 0.85 (normal less than 1.3). Left ventricle resting end diastolic volume is 166mL. Left ventricle stress ejection fraction is 61%; normal range is above 45%. Myocardial perfusion: There is a mildly intense small fixed apical defect that resolves with prone imaging, suggesting artifact. No prior infarction and no ischemia. SSS 0. IMPRESSION: Low risk, probably normal pharm nuclear stress test. 1) There is a mildly intense small fixed apical defect that resolves with prone imaging, suggesting artifact. No prior infarction and no ischemia. SSS 0. 2) Enlarged left ventricle with normal systolic function (EF post stress 61%). 3) No angina during the study. 4) No diagnostic ST changes with lexiscan. 5) Compared to the nuclear stress test 12/05/2020, perfusion images are reassuring on the current study. Dictated by: Neil Cruz MD on 08/17/2024 at 15:41 Approved by: Neil Cruz MD on 08/17/2024 at 15:44
== END ==
LOC: NUCM 09:37
PROVIDERS: Family Provider Family Medicine; PCP Family Medicine; Referring Provider Internal Medicine Cardiovascular Disease; Visit Provider Internal Medicine Cardiovascular Disease
DX: I49.3 Ventricular premature depolarization (principal); R55 Syncope and collapse
CPT/HCPCS: 78452; 93017; A9502; J2785

== ENCOUNTER → 2024-10-20 11:57 | Outpatient (CLI) | payer MEDICARE, OTHER, SELFPAY ==
[2024-07-06 15:10] VITALS: BMI 38.2
[2024-10-20 12:59] LABS: Add Manual Diff / Slide Review NO; Basophils Absolute Auto 0 /uL (0-100); Basophils Percent Auto 0.6 % (0-2); Eosinophils Absolute Auto 100 /uL (0-450); Eosinophils Percent Auto 1.5 % (2-4); Hematocrit 44.7 % (41-53); Lymphocytes Absolute Auto 2400 /uL (1100-4500); Lymphocytes Percent Auto 34.1 % (25-40); Mean Corpuscular HGB Conc 33.6 % (30-36); Mean Corpuscular Hemoglobin 30.9 PG (26-34); Monocytes Absolute Auto 800 /uL (0-900); Monocytes Percent Auto 11.7 % (3-14); Neutrophils Absolute Auto 3700 /uL (1500-7000); Neutrophils Percent Auto 52.1 % (50-75); Platelet Count 175 X10^3/uL (150-400); Red Blood Cell Count 4.86 X10^6/uL (4.5-5.9); Red Cell Distribution Width 14.6 % (11.6-14.8); White Blood Cell Count 7.1 X10^3/uL (4.5-11.0)
[2024-10-20 13:13] LABS: Hemoglobin A1C% w Est Avg Glu 5.7 % (4.0-6.0)
[2024-10-20 13:21] LABS: Alanine Aminotransferase 28 IU/L (<50); Albumin 4.5 g/dL (3.5-5.0); Albumin Globulin Ratio 1.6 (1.0-2.8); Alkaline Phosphatase 92 U/L (38-126); Aspartate Aminotransferase 27 IU/L (17-59); BUN Creatinine Ratio 13.3 (6-22); Blood Urea Nitrogen 12 mg/dL (9-20); Calcium 9.3 mg/dL (8.4-10.2); Carbon Dioxide 27 mmol/L (22-32); Chloride 104 mmol/L (98-107); Cholesterol 172 mg/dL (140-199); Estimated Glomerular Filt Rate > 60 mL/min (>60); Globulin 2.9 g/dL (1.7-4.1); Glucose 110 mg/dL (80-110); HDL Cholesterol 49 mg/dL (40-60); HEMOLYSIS < 15 (0-50); LDL Cholesterol Calculated 84 mg/dL (<100); Magnesium 1.7 mg/dL (1.6-2.3); Potassium 4.8 mmol/L (3.4-5.1); Sodium 141 mmol/L (137-145); Total Protein 7.4 g/dL (6.3-8.2); Triglycerides 195 mg/dL (35-150)
== END ==
PROVIDERS: Family Provider Family Medicine; PCP Family Medicine; Referring Provider Internal Medicine Cardiovascular Disease; Visit Provider Internal Medicine Cardiovascular Disease
DX: E78.5 Hyperlipidemia, unspecified (principal); Z13.1 Encounter for screening for diabetes mellitus; E83.42 Hypomagnesemia; I47.10 Supraventricular tachycardia, unspecified; I10 Essential (primary) hypertension; R55 Syncope and collapse
CPT/HCPCS: 36415; 80053; 80061; 83036; 83735; 84443; 85025

== ENCOUNTER 2025-03-15 11:49 | Emergency (ER) | payer MEDICARE, OTHER, SELFPAY ==
[2024-07-06 15:10] VITALS: BMI 38.2
[2025-03-15 11:54] VITALS: BP 143/65; PULSE 68; RESP 16; TEMP 36.7; O2SAT 97; BMI 34.4
--- NOTE | 2025-03-15 12:01 | DI.CT.S_ITS ---
PROCEDURE: CT HEAD/BRAIN WO CON INDICATIONS: fell and hit head yesterday TECHNIQUE: Noncontrast 4.5 mm thick angled axial sections acquired from the foramen magnum to the vertex, with coronal and sagittal reformats. For radiation dose reduction, the following was used: automated exposure control, adjustment of mA and/or kV according to patient size. COMPARISON: [facility], CT, CT HEAD/BRAIN WO CON, 07/03/2024, 8:20. [facility], CT, CT HEAD/BRAIN WO CON, 05/02/2024, 11:36. FINDINGS: Image quality: Diagnostic. CSF spaces: Basal cisterns are patent. No extra-axial fluid collections. The ventricles are symmetric in size and shape. Brain: No intracranial bleeds or mass effect. There is cerebral volume loss, with resultant ventricular and sulcal prominence. There are periventricular and deep white matter chronic small vessel ischemic changes. There is intracranial internal carotid artery atherosclerosis. Skull and face: Calvarium and visualized facial bones appear intact, without suspicious lesions. Sinuses: Visualized sinuses and mastoids are clear. IMPRESSION: No acute intracranial pathology. Approved by: Naif Hughes M.D. on 03/15/2025 at 12:54
--- NOTE | 2025-03-15 12:01 | DI.RAD.S_ITS ---
PROCEDURE: XR KNEE RT 3V INDICATIONS: trauma TECHNIQUE: 3 views of the knee were acquired. COMPARISON: None. FINDINGS: Bones: No acute fractures or dislocations. No suspicious bony lesions. Mild osteoarthrosis. Soft tissues: Small joint effusion. No suspicious soft tissue calcifications. IMPRESSION: Small joint effusion. No acute osseous abnormality. If there is continued clinical concern or persistent symptoms, repeat radiographs or cross-sectional imaging (e.g. CT, MRI) may be helpful for further evaluation. Approved by: Naif Hughes M.D. on 03/15/2025 at 13:23
--- NOTE | 2025-03-15 12:14 | ED.FALL ---
HPI - Fall <Clarisse Rodríguez PA-C - Last Filed: 03/15/25 14:06> General Chief Complaint: Fall Stated Complaint[place],; Hit knee and head - knee pain Time Seen by Provider: 03/15/25 12:01 Source: patient Mode of arrival: Wheelchair History of Present Illness HPI Narrative: 75-year-old male with past medical history hyperlipidemia, CVA, hypertension, obstructive sleep apnea presents to the ED status post a mechanical fall sustained yesterday. Patient states he was walking his dog, had a mechanical fall on some uneven ground, striking his right knee and the top of his head. Patient is not on blood thinners. No loss of consciousness. Patient was able to stand up and walk back home. Patient states that his right knee started to become painful about 2 hours after the fall. Patient is able to bear weight and walk, however it is painful. Patient is using a walking stick from a prior ankle injury. No numbness, tingling, weakness. No nausea, vomiting, chest pain, shortness of breath, headache, neck pain. Tetanus is up-to-date. Related Data Home Medications ?Medication ?Instructions ?Recorded ?Confirmed omeprazole 20 mg tablet,delayed 20 mg PO BEDTIME 12/14/21 03/07/25 release aspirin 81 mg tablet,delayed 81 mg PO DAILY 03/15/25 03/15/25 release clobetasol 0.05 % topical ointment topical 03/15/25 03/15/25 fluorouracil 5 % topical cream applic topical BID 03/15/25 03/15/25 levetiracetam 500 mg tablet 500 mg PO BID 03/15/25 03/15/25 Previous Rx's ?Medication ?Instructions ?Recorded metoprolol succinate 25 mg 25 mg PO DAILY #90 tabs 07/24/23 tablet,extended release 24 hr allopurinol 300 mg tablet 300 mg PO DAILY #90 tabs 10/04/24 atorvastatin 80 mg tablet 80 mg PO DAILY #90 tabs 10/04/24 diltiazem HCl 360 mg capsule,24 360 mg PO DAILY #90 caps 10/12/24 hr,extended release enalapril maleate 20 mg tablet 20 mg PO QPM #90 tabs 11/15/24 buspirone 5 mg tablet 10 mg (2 x 5 mg) PO BID #180 tabs 02/02/25 venlafaxine 150 mg 150 mg PO DAILY #90 caps 02/14/25 capsule,extended release 24 hr Allergies Allergy/AdvReac Type Severity Reaction Status Date / Time No Known Drug Allergies Allergy Verified 03/15/25 11:54 Review of Systems <Clarisse Rodríguez PA-C - Last Filed: 03/15/25 14:06> Constitutional Constitutional: Denies chills, Denies fatigue, Denies fever(s), Denies frequent falls, Denies lethargy and Denies weakness Eyes Eyes: Denies change in vision, Denies eye discharge, Denies irritation and Denies loss of vision ENT Ears, Nose, Mouth, and Throat: Denies change in voice, Denies dizziness, Denies neck pain, Denies sore throat and Denies throat swelling Cardiovascular Cardiovascular: Denies chest pain, Denies irregular heart rhythm, Denies lightheadedness, Denies palpitations, Denies dyspnea, Denies dyspnea on exertion and Denies orthopnea Respiratory Respiratory: Denies cough, Denies dyspnea, Denies dyspnea on exertion and Denies wheezing Gastrointestinal Gastrointestinal: Denies abdominal pain, Denies change in bowel habits, Denies diarrhea, Denies nausea and Denies vomiting Musculoskeletal Musculoskeletal: Denies neck pain and Denies numbness Comments: Right knee pain Integumentary/Breasts Skin/Breast: Denies pruritus, Denies erythema, Denies rash and Denies wounds Neurologic Neurologic: Denies behavioral changes, Denies confusion, Denies dizziness, Denies frequent falls, Denies loss of vision, Denies numbness and Denies weakness Psychiatric Psychiatric: Denies anxiety, Denies behavioral changes, Denies confusion, Denies depression, Denies homicidal ideation and Denies suicidal ideation Endocrine Endocrine: Denies fatigue, Denies flushing and Denies palpitations Hematologic/Lymphatic Hematologic/Lymphatic: Denies easy bruising Allergic/Immunologic Allergic/Immunologic: Denies urticaria, Denies throat swelling and Denies wheezing Patient History <Clarisse Rodríguez PA-C - Last Filed: 03/15/25 14:06> Medical History Cerebrovascular accident Depression Diaphoresis Kidney stones (2011) Chicken pox (5) Mumps (1957) Ankle pain (1963) Gout (2001) Acid reflux Hyperlipidemia Hypertension Obstructive sleep apnea of adult (2007) Snoring Surgical History History of left heart catheterization (LHC) (02/08/14) History of colonoscopy (08/12/12) History of right cataract surgery (08/08/17) Anesthesia History of surgery on arm (1966) Family History Father Cancer Colon cancer [place] (myocardial infarction) Mother Age: 101 Pacemaker Brother Lung cancer Brother Liver cancer Grandfather [place] (myocardial infarction) Grandmother No problems noted. Sister No problems noted. Social History marital status: household members: spouse occupational status: previously employed Smoking Status: Never smoker alcohol intake: current substance use type: does not use Smoking Status: Never smoker alcohol intake frequency: holidays/special occasions only Exam <Clarisse Rodríguez PA-C - Last Filed: 03/15/25 14:06> Narrative Exam Narrative: Const General:?cooperative, healthy appearing and comfortable [facility] Head: Small abrasions noted to the top of the head. No hematoma. No skull depressions Ears:?hearing grossly normal bilaterally Nose:?external nose normal Face and sinus:?normal facial exam and sinuses nontender Mouth:?oral mucosae normal Throat:?posterior oropharynx normal Eyes General:?appearance normal, both eyes and all related structures Neck Neck:?normal visual inspection and no lymphadenopathy noted Resp Effort & Inspection:?normal respiratory effort Auscultation:?clear to auscultation bilaterally Cardio Rate:?regular rate Rhythm:?regular rhythm Musculoskeletal No bruising, deformities, tenderness to palpation of right knee. Mild swelling. Full range of motion. Patient is able to bear weight and walk. Strength and sensation is intact. Neurovascularly intact. Neuro General:?patient alert, patient awake and patient oriented x3 Initial Vital Signs Initial Vital Signs: Vital Signs Temperature 98.0 F 03/15/25 11:54 Pulse Rate 68 03/15/25 11:54 Respiratory Rate 16 03/15/25 11:54 Blood Pressure 143/65 H 03/15/25 11:54 Pulse Oximetry 97 03/15/25 11:54 Oxygen Delivery Method Room Air 03/15/25 11:54 <Nery Kiran MD - Last Filed: 03/16/25 23:25> Initial Vital Signs Initial Vital Signs: Vital Signs Temperature 98.0 F 03/15/25 11:54 Pulse Rate 68 03/15/25 11:54 Respiratory Rate 16 03/15/25 11:54 Blood Pressure 143/65 H 03/15/25 11:54 Pulse Oximetry 97 03/15/25 11:54 Oxygen Delivery Method Room Air 03/15/25 11:54 Course <Clarisse Rodríguez PA-C - Last Filed: 03/15/25 14:06> Orders Ordered: Discontinued Medications Oxycodone/Acetaminophen (Oxycodone/Acetaminophen 5/325 Tablet) 1 tab PO NOW ONE Stop: 03/15/25 12:02 Last Admin: 03/15/25 12:37 Dose: 1 tab Documented By: COLLEEN Vital Signs Vital signs: Vital Signs - 8 hr 03/15/25 11:54 03/15/25 13:43 Temperature 98.0 F Pulse Rate 68 65 Respiratory Rate 16 16 Blood Pressure 143/65 H 139/62 Pulse Oximetry 97 100 Oxygen Delivery Method Room Air Room Air <Nery Kiran MD - Last Filed: 03/16/25 23:25> Orders Ordered: Discontinued Medications Oxycodone/Acetaminophen (Oxycodone/Acetaminophen 5/325 Tablet) 1 tab PO NOW ONE Stop: 03/15/25 12:02 Last Admin: 03/15/25 12:37 Dose: 1 tab Documented By: COLLEEN Vital Signs Vital signs: Vital Signs - 8 hr 03/15/25 11:54 03/15/25 13:43 Temperature 98.0 F Pulse Rate 68 65 Respiratory Rate 16 16 Blood Pressure 143/65 H 139/62 Pulse Oximetry 97 100 Oxygen Delivery Method Room Air Room Air MDM - Fall <Clarisse Rodríguez PA-C - Last Filed: 03/15/25 14:06> MDM Narrative Medical decision making narrative: 75-year-old male with past medical history hyperlipidemia, CVA, hypertension, obstructive sleep apnea presents to the ED status post a mechanical fall sustained yesterday. Concern for fracture/dislocation versus musculoskeletal sprain/strain versus intracranial injury versus other. Will obtain CT head, x-ray of the knee. Will give Percocet for pain. Will reassess. CT scan of the head with no acute intracranial pathology. Knee x-ray shows a small joint effusion, no acute osseous abnormality. Discussed findings with patient. Recommend John wraps/flexible knee brace, ibuprofen, Tylenol. Recommend follow-up with PCP as soon as possible. ED return precautions discussed with patient. Patient verbalized understanding. Medical records reviewed: Yes Discharge Plan Departure Patient Disposition: Home Clinical Impression: Knee injury Qualifiers: Encounter type: initial encounter Laterality: right Qualified Code(s): S89.91XA - Unspecified injury of right lower leg, initial encounter Instructions: How to Prevent Falls Activity Restrictions/Additional Instructions: You were evaluated in the emergency department today for a knee injury. It appears you have a musculoskeletal sprain/strain of the right knee from the fall. X-ray did not show any fractures/dislocations. Head CT scan was normal. You may apply in John wrap or a flexible knee brace for comfort and healing. You may take Tylenol, ibuprofen for pain control. You may also apply ice/heat/lidocaine patches. Please follow-up with your PCP as soon as possible. Return to the ED if you have worsening symptoms, numbness, tingling, weakness. Prescriptions: No Action levetiracetam 500 mg tablet 500 mg PO BID fluorouracil 5 % cream topical BID aspirin 81 mg tablet,delayed release (DR/EC) 81 mg PO DAILY clobetasol 0.05 % ointment topical allopurinol 300 mg tablet 300 mg PO DAILY Qty: 90 3RF atorvastatin 80 mg tablet 80 mg PO DAILY Qty: 90 3RF diltiazem HCl 360 mg capsule,extended release 24hr 360 mg PO DAILY Qty: 90 3RF enalapril maleate 20 mg tablet 20 mg PO QPM Qty: 90 1RF buspirone 5 mg tablet 10 mg PO BID Qty: 180 3RF venlafaxine 150 mg capsule,extended release 24hr 150 mg PO DAILY Qty: 90 0RF metoprolol succinate 25 mg tablet extended release 24 hr 25 mg PO DAILY Qty: 90 3RF omeprazole 20 MG tablet,delayed release (DR/EC) 20 mg PO BEDTIME Referrals: Ray Landeros MD [Primary Care Provider, Family Practice] Stand Alone Forms: Patient Portal/API ED Sign-out <Nery Kiran MD - Last Filed: 03/16/25 23:25> Cosign ED Attending Cosignature Attestation: Patient seen and evaluated, x-rays ordered, no indication the abrasion over his scalp knees laceration. Remainder of documentation is evaluated and I agree with the above.
[2025-03-15] MEDS: OXYCODONE/ACETAMINOPHEN 5/325 TABLET 1 TAB PO (12:37)
[2025-03-15 13:43] VITALS: BP 139/62; PULSE 65; RESP 16; O2SAT 100
== END 2025-03-15 13:45 | disposition home or self-care (01) ==
PROVIDERS: Emergency Provider Student in an Organized Health Care Education/Training Program; Family Provider Family Medicine; PCP Family Medicine
DX: S89.91XA Unspecified injury of right lower leg, initial encounter (principal); S00.81XA Abrasion of other part of head, initial encounter; W18.30XA Fall on same level, unspecified, initial encounter; Y93.K1 Activity, walking an animal; I10 Essential (primary) hypertension
CPT/HCPCS: 70450; 73562; 99283; 99284